=== PATIENT | male | born 1955 | race American Indian/Alaskan Native ===

== ENCOUNTER 2021-01-30 21:12 | Observation (INO) | payer MEDICARE, OTHER ==
[2021-01-30] MEDS ORDERED: ASPIRIN 325 MG TAB PO ONE (21:34)
--- NOTE | 2021-01-30 21:41 | Emergency Department Report ---
ED Chest Pain HPI - General Chief Complaint: Chest Pain Stated Complaint: CHEST PAIN PUI?: No Time Seen by Provider: 01/30/21 21:33 Source: family, EMS Mode of arrival: Stretcher Limitations: No Limitations - History of Present Illness Initial Comments: Patient is a 65-year-old male who presents emergency room with complaints of chest pain. Patient also complains of shortness of breath. Patient states his symptoms started 2 days ago. Patient dates his symptoms worsen. Patient dates his chest pain is nonradiating and in the left side of his chest. Patient states he has had nausea and vomiting as well. Patient denies cough. Patient denies fever and chills. Patient states the chest pain is a 10 out of 10. Patient states the chest pain is worse with exertion and better with rest. Patient denies recent travel. Patient denies recent international travel. Patient denies exposure to the novel coronavirus. Patient denies sick contacts. Patient denies fever and chills. Patient denies cough. Patient denies di arrhea. Patient denies coming in contact with anybody with symptoms of the novel coronavirus. Patient states he drinks regularly and his last drink was this morning. MD Complaint: chest pain -: Sudden Onset: during rest Pain Location: left chest Pain Radiation: none Severity: severe Severity scale (0 -10): 10 Quality: sharp Consistency: constant Improves With: rest Worsens With: exertion re: nausea, vomting, dyspnea. denies: diaphoresis, sense of impending doom Other Symptoms: denies: cough, fever, syncope, rash, acid taste in mouth, leg swelling, palpitations, burping Treatments Prior to Arrival: none Aspirin use within the Past 7 Days: (1) Yes - Related Data On Oral Contraceptives: No Previous Rx's Medication Instructions Recorded Last Taken Type Aspirin EC [Halfprin EC] 81 mg PO QDAY #30 tablet 04/01/19 Unknown Rx Folic Acid [Folvite] 1 mg PO QDAY #30 tablet 04/01/19 Unknown Rx Losartan [Cozaar] 50 mg PO QDAY #30 tablet 04/01/19 Unknown Rx Metoprolol Xl [Metoprolol 50 mg PO QDAY #30 tablet 04/01/19 Unknown Rx SUCCINATE ER TAB] Multivitamin [Multiple Vitamins] 1 each PO DAILY #30 tablet 04/01/19 Unknown Rx NIFEdipine XL [Procardia Xl] 60 mg PO QDAY #30 tablet 04/01/19 Unknown Rx Spironolactone [Aldactone] 25 mg PO QDAY #30 tablet 04/01/19 Unknown Rx Allergies Allergy/AdvReac Type Severity Reaction Status Date / Time lisinopril Allergy Severe EVERYTHING Verified 03/31/19 14:32 SWELLS Heart Score - HEART Score History: Moderately suspicious EKG: Non-specific Age: > 65 Risk factors: 1-2 risk factors Troponin: < normal limit HEART Score: 5 ED Review of Systems ROS: Stated complaint: CHEST PAIN Other details as noted in HPI Constitutional: denies: chills, fever Eyes: denies: eye pain, eye discharge, vision change ENT: denies: ear pain, throat pain Respiratory: see HPI, shortness of breath. denies: cough, wheezing Cardiovascular: chest pain. denies: palpitations Endocrine: no symptoms reported Gastrointestinal: denies: abdominal pain, nausea, diarrhea Genitourinary: denies: urgency, dysuria Musculoskeletal: denies: back pain, joint swelling, arthralgia Skin: denies: rash, lesions Neurological: denies: headache, weakness, paresthesias Psychiatric: denies: anxiety, depression Hematological/Lymphatic: denies: easy bleeding, easy bruising ED Past Medical Hx - Past Medical History Previous Medical History?: Yes Hx Hypertension: Yes Hx Heart Attack/AMI: No Hx Congestive Heart Failure: Yes Hx Liver Disease: Yes Additional medical history: high cholesterol - Surgical History Past Surgical History?: Yes Additional Surgical History: rotator cuff, hip - Family History Family history: no significant - Social History Smoking Status: Never Smoker Substance Use Type: Alcohol - Medications Home Medications: Home Medications Medication Instructions Recorded Confirmed Last Taken Type Aspirin EC [Halfprin EC] 81 mg PO QDAY #30 tablet 04/01/19 Unknown Rx Folic Acid [Folvite] 1 mg PO QDAY #30 tablet 04/01/19 Unknown Rx Losartan [Cozaar] 50 mg PO QDAY #30 tablet 04/01/19 Unknown Rx Metoprolol Xl [Metoprolol 50 mg PO QDAY #30 tablet 04/01/19 Unknown Rx SUCCINATE ER TAB] Multivitamin [Multiple Vitamins] 1 each PO DAILY #30 tablet 04/01/19 Unknown Rx NIFEdipine XL [Procardia Xl] 60 mg PO QDAY #30 tablet 04/01/19 Unknown Rx Spironolactone [Aldactone] 25 mg PO QDAY #30 tablet 04/01/19 Unknown Rx ED Physical Exam - General Limitations: No Limitations General appearance: alert, in no apparent distress - Head Head exam: Present: atraumatic, normocephalic - Eye Eye exam: Present: normal appearance - ENT ENT exam: Present: mucous membranes moist - Neck Neck exam: Present: normal inspection - Respiratory Respiratory exam: Present: normal lung sounds bilaterally. Absent: respiratory distress, chest wall tenderness, accessory muscle use - Cardiovascular Cardiovascular Exam: Present: regular rate, normal rhythm. Absent: systolic m urmur, diastolic murmur, rubs, gallop - GI/Abdominal GI/Abdominal exam: Present: soft, normal bowel sounds. Absent: distended, tenderness, guarding - Rectal Rectal exam: Present: deferred - Extremities Exam Extremities exam: Present: normal inspection - Back Exam Back exam: Present: normal inspection - Neurological Exam Neurological exam: Present: alert, oriented X3 - Psychiatric Psychiatric exam: Present: normal affect, normal mood - Skin Skin exam: Present: warm, dry, intact, normal color. Absent: rash ED Course Vital Signs 01/30/21 01/30/21 21:26 21:28 Temperature 97.5 F L Pulse Rate 37 L 87 Respiratory 20 Rate Blood Pressure 140/70 O2 Sat by Pulse 100 Oximetry - Reevaluation(s) Reevaluation #1: I discussed all results with patient. I discussed plan of care with patient. Patient agrees with plan of care and admission. Patient to be admitted to the hospitalist service. Patient placed on a CIWA protocol. 01/30/21 23:10 - Consultations Consultation #1: Hospitalist consulted for admission. Hospitalist to admit patient. 01/30/21 23:10 RUBI score - Rubi Score Age > 65: (0) No Aspirin use within the Past 7 Days: (0) No 3 or more CAD Risk Factors: (0) No 2 or more Angina events in past 24 hrs: (1) Yes Known CAD with more than 50% Stenosis: (0) No Elevated Cardiac Markers: (0) No ST Deviation Greater than 0.5mm: (0) No RUBI Score: 1 ED Medical Decision Making - Lab Data Result diagrams: 01/30/21 21:41 01/30/21 21:41 - EKG Data -: EKG Interpreted by Me EKG shows normal: sinus rhythm, intervals, QRS complexes, ST-T waves Rate: bradycardia - EKG Data Interpretation: other (Abnormal EKG, PVCs, bigeminy, axis deviation,) - Radiology Data Radiology results: report reviewed, image reviewed interpreted by me: Chest x-ray: No pneumonia, no pneumothorax, no foreign body, no osseous findings, no acute findings CHEST 1 VIEW 01/30/2021 9:06 PM INDICATION / CLINICAL INFORMATION: Chest Pain. COMPARISON: March 2019 FINDINGS: SUPPORT DEVICES: None. HEART / MEDIASTINUM: Stable. LUNGS / PLEURA: Partial collapse of the right upper lung with rightward deviation of the mediastinum and pleural thickening at the right lung apex, findings are similar when compared to 03/30/2019. Bilateral lungs demonstrate chronic interstitial markings without evidence of superimposed acute pulmonary parenchymal or pleural abnormality. No pneumothorax. ADDITIONAL FINDINGS: No significant additional findings. IMPRESSION: 1. No convincing evidence of acute cardiopulmonary process. - Medical Decision Making Patient is a 65-year-old male who presents emergency room with complaints of chest pain shortness of breath. Patient has a history of hypertension, alcohol abuse, CHF, liver disease. Patient had labs done which were essentially unremarkable except for abnormal platelets, abnormal LFTs and bilirubin, hyponatremia. Patient's cardiac enzymes were negative. Patient's chest x-ray shows no acute findings. Patient EKG shows bigeminy and a sinus bradycardia. I have personally reviewed the x-ray and EKG. Patient admitted to the hospital service for further evaluation treatment and rule out ACS. Critical care time documented due to the multiple reassessments, prolonged time at the bedside, interpretation of diagnostics and labs. - Differential Diagnosis ACS, chest pain, shortness of breath, Critical Care Time: Yes Critical care time in (mins) excluding proc time.: 35 Critical care attestation.: If time is entered above; I have spent that time in minutes in the direct care of this critically ill patient, excluding procedure time. Critical Care Time: 35 minutes ED Disposition Clinical Impression: SOB (shortness of breath), Thrombocytopenia, Hyponatremia, Abnormal LFTs (liver function tests), Elevated bilirubin, Elevated liver enzymes Chest pain Qualifiers: Chest pain type: unspecified Qualified Code(s): R07.9 - Chest pain, unspecified Diastolic CHF Qualifiers: Heart failure chronicity: unspecified Qualified Code(s): I50.30 - Unspecified diastolic (congestive) heart failure Nausea & vomiting Qualifiers: Vomiting type: unspecified Vomiting Intractability: non-intractable Qualified Code(s): R11.2 - Nausea with vomiting, unspecified Disposition: OP ADMIT IP TO THIS HOSP Is pt being admited?: Yes Does the pt Need Aspirin: No Condition: Critical Referrals: PRIMARY CARE, [Primary Care Provider] - 3-5 Days Time of Disposition: 23:09
[2021-01-30 22:10] LABS: Basophils % (Auto) 0.6 % (0.0-1.8); Eosinophils % (Auto) 0.9 % (0.0-4.3); Hematocrit 36.8 % (35.5-45.6); Hemoglobin 12.9 gm/dl (11.8-15.2); Lymphocytes # (Auto) 1.7 K/mm3 (1.2-5.4); Mean Corpuscular HGB Conc 35 % (32-34); Mean Corpuscular Volume 114 fl (84-94); Monocytes # (Auto) 0.8 K/mm3 (0.0-0.8); Monocytes % (Auto) 15.7 % (0.0-7.3); Red Blood Count 3.23 M/mm3 (3.65-5.03); Red Cell Distribution Width 16.6 % (13.2-15.2)
[2021-01-30 22:13] LABS: INR 1.67 (0.87-1.13)
[2021-01-30 22:14] LABS: Partial Thromboplastin Time 37.1 Sec. (24.2-36.6)
[2021-01-30 22:21] LABS: Alanine Aminotransferase 33 units/L (7-56); BUN/Creatinine Ratio 18; Blood Urea Nitrogen 16 mg/dL (9-20); Calcium 8.2 mg/dL (8.4-10.2); Hemolysis Index 14
--- NOTE | 2021-01-30 22:26 | XRay Report ---
CHEST 1 VIEW 01/30/2021 9:06 PM INDICATION / CLINICAL INFORMATION: Chest Pain. COMPARISON: March 2019 FINDINGS: SUPPORT DEVICES: None. HEART / MEDIASTINUM: Stable. LUNGS / PLEURA: Partial collapse of the right upper lung with rightward deviation of the mediastinum and pleural thickening at the right lung apex, findings are similar when compared to 03/30/2019. Bilate ral lungs demonstrate chronic interstitial markings without evidence of superimposed acute pulmonary parenchymal or pleural abnormality. No pneumothorax. ADDITIONAL FINDINGS: No significant additional findings. IMPRESSION: 1. No convincing evidence of acute cardiopulmonary process. Signer Name: Sidney Montoya MD Signed: 01/30/2021 10:22 PM Workstation Name: [id number]
[2021-01-30 22:41] LABS: Platelet Count 43 K/mm3 (140-440)
[2021-01-30] MEDS ORDERED: LORazepam 2 MG/ML VIAL IV PRN ×3 (23:05)
[2021-01-31] MEDS ORDERED: ACETAMINOPHEN 325 MG TAB PO PRN ×2 (02:38)
[2021-01-31] MEDS ORDERED: MORPHINE 2 MG/1 ML INJ IV PRN (02:38)
[2021-01-31] MEDS ORDERED: MAGNESIUM HYDROXIDE (MOM) ORAL LIQD UDC PO PRN (02:38)
[2021-01-31] MEDS ORDERED: ONDANSETRON 4 MG/2 ML INJ IV PRN (02:38)
--- NOTE | 2021-01-31 02:59 | History and Physical Report ---
History of Present Illness Date of examination: 01/30/21 Date of admission: 01/30/21 23:12 Chief complaint: chest pain History of present illness: 65-year-old with known history of hypertension, hyperlipidemia, CHF and history of liver disease presenting in the emergency room today complaining of shortness of breath started about 2 days ago. Symptoms were said to have worsened over the past 2 days. Chest pain is left-sided and nonradiating. He has had associa carolyn nausea and vomiting. On a scale of 10 chest pain is said to be about 10/10 in severity. Chest pain is worse on exertion and feels better on resting. He denies any headache or dizziness, denies any diaphoresis. Patient denies any fever or chills, denies any recent travel and no sick contacts. Work-up in the emergency room today has not revealed any acute abnormality. Patient has been admitted for chest pain evaluation. Past History Past Medical History: heart failure, hypertension, hyperlipidemia, liver disease Past Surgical History: Other (Hip surgery, rotator cuff surgery) Social history: smoking, alcohol abuse Family history: no significant family history Medications and Allergies Allergies Allergy/AdvReac Type Severity Reaction Status Date / Time lisinopril Allergy Severe EVERYTHING Verified 03/31/19 14:32 [facility] Medications Medication Instructions Recorded Confirmed Last Taken Type Aspirin EC [Halfprin EC] 81 mg PO QDAY #30 tablet 04/01/19 Unknown Rx Folic Acid [Folvite] 1 mg PO QDAY #30 tablet 04/01/19 Unknown Rx Losartan [Cozaar] 50 mg PO QDAY #30 tablet 04/01/19 Unknown Rx Metoprolol Xl [Metoprolol 50 mg PO QDAY #30 tablet 04/01/19 Unknown Rx SUCCINATE ER TAB] Multivitamin [Multiple Vitamins] 1 each PO DAILY #30 tablet 04/01/19 Unknown Rx NIFEdipine XL [Procardia Xl] 60 mg PO QDAY #30 tablet 04/01/19 Unknown Rx Spironolactone [Aldactone] 25 mg PO QDAY #30 tablet 04/01/19 Unknown Rx Active Meds: Active Medications Acetaminophen (Acetaminophen 325 Mg Tab) 650 mg PO Q4H PRN PRN Reason: Pain MILD(1-3)/Fever >100.5/COLLINS Aspirin (Aspirin Ec 325 Mg Tab) 325 mg PO QDAY LILIBETH Lorazepam (Lorazepam 2 Mg/Ml Vial) 2 mg IV Q1HR PRN PRN Reason: CIWA-Ar 8-15 Lorazepam (Lorazepam 2 Mg/Ml Vial) 4 mg IV Q1HR PRN PRN Reason: CIWA-Ar 16-25 Lorazepam (Lorazepam 2 Mg/Ml Vial) 4 mg IV Q15MIN PRN PRN Reason: CIWA-Ar >25 Magnesium Hydroxide (Magnesium Hydroxide (Mom) Oral Liqd Udc) 30 ml PO Q4H PRN PRN Reason: Constipation Morphine Sulfate (Morphine 2 Mg/1 Ml Inj) 2 mg IV Q5MIN PRN PRN Reason: Chest Pain Ondansetron HCl (Ondansetron 4 Mg/2 Ml Inj) 4 mg IV Q8H PRN PRN Reason: Nausea And Vomiting Sodium Chloride (Sodium Chloride 0.9% 10 Ml Flush Syringe) 10 ml IV BID LILIBETH Sodium Chloride (Sodium Chloride 0.9% 10 Ml Flush Syringe) 10 ml IV PRN PRN PRN Reason: LINE FLUSH Review of Systems Constitutional: no fever, no chills, no weakness Ears, nose, mouth and throat: no nasal congestion, no sore throat Cardiovascular: chest pain, no palpitations Respiratory: no cough, no shortness of breath, no wheezing Gastrointestinal: no abdominal pain, no nausea, no vomiting, no diarrhea Genitourinary Male: no dysuria, no hematuria, no nocturia Musculoskeletal: no neck pain, no low back pain Integumentary: no rash, no pruritis Neurological: no headaches, no confusion Psychiatric: no anxiety, no depression Exam - Constitutional Vitals: Temp Pulse Resp BP Pulse Ox 98.0 F 87 16 141/74 100 01/30/21 23:56 01/31/21 02:43 01/30/21 23:56 01/30/21 23:56 01/30/21 23:56 General appearance: Present: no acute distress, well-nourished - EENT Eyes: Present: PERRL, EOM intact. Absent: scleral icterus ENT: hearing intact, clear oral mucosa, dentition normal - Neck Neck: Present: supple, normal ROM - Respiratory Respiratory effort: normal Respiratory: bilateral: CTA - Cardiovascular Rhythm: regular Heart Sounds: Present: S1 & S2. Absent: gallop, systolic murmur, diastolic murmur, rub, click - Extremities Extremities: no ischemia, pulses intact, pulses symmetrical, No edema, normal temperature, normal color, Full ROM Peripheral Pulses: within normal limits - Abdominal General gastrointestinal: Present: soft, non-tender, non-distended, normal bowel sounds. Absent: mass - Integumentary Integumentary: Present: clear, warm, dry. Absent: rash - Musculoskeletal Musculoskeletal: strength equal bilaterally - Psychiatric Psychiatric: appropriate mood/affect, intact judgment & insight, memory intact, cooperative - Neurologic Neurologic: CNII-XII intact, no focal deficits, moves all extremities HEART Score - HEART Score History: Moderately suspicious EKG: Non-specific Age: > 65 Risk factors: 1-2 risk factors Troponin: Troponin T < 0.010 ng/mL (0.00-0.029) 01/31/21 00:24 Troponin: < normal limit HEART Score: 5 Results - Labs CBC & Chem 7: 01/30/21 21:41 01/30/21 21:41 Labs: Abnormal lab results 01/30/21 01/30/21 01/30/21 Range/Units 21:41 21:41 21:41 RBC 3.23 L (3.65-5.03) M/mm3 MCV 114 H (84-94) fl MCH 40 H (28-32) pg MCHC 35 H (32-34) % RDW 16.6 H (13.2-15.2) % Plt Count 43 L (140-440) K/mm3 Lymph % (Auto) 36.0 H (13.4-35.0) % [place] % (Auto) 15.7 H (0.0-7.3) % PT 19.6 H (12.2-14.9) Sec. INR 1.67 H (0.87-1.13) APTT 37.1 H (24.2-36.6) Sec. Sodium 128 L (137-145) mmol/L Chloride 96.1 L (98-107) mmol/L Calcium 8.2 L (8.4-10.2) mg/dL Total Bilirubin 2.80 H (0.1-1.2) mg/dL AST 82 H (5-40) units/L Alkaline Phosphatase 264 H (35-129) units/L Albumin 2.0 L (3.9-5) g/dL Assessment and Plan - Patient Problems (1) Chest pain Current Visit: Yes Status: Acute Qualifiers: Chest pain type: unspecified Qualified Code(s): R07.9 - Chest pain, unspecified Plan to address problem: Patient admitted and placed on telemetry. Will check serial cardiac enzymes. Patient started on aspirin, sublingual nitroglycerin and IV morphine as needed for chest pain. We will request cardiology evaluation. (2) Hypertension Current Visit: No Status: Acute Qualifiers: Hypertension type: unspecified Qualified Code(s): I10 - Essential (primary) hypertension Plan to address problem: We will resume routine home medications and monitor vital signs closely. (3) Elevated liver enzymes Current Visit: Yes Status: Acute Plan to address problem: Possibly secondary to history of alcohol abuse. Will monitor LFTs. We will consult gastroenterology for follow-up if needed. (4) EtOH dependence Current Visit: No Status: Acute Qualifiers: Complication of substance-induced condition: with unspecified complication Plan to address problem: Patient will be closely monitored for alcohol withdrawal. Patient placed on CIWA protocol. (5) Thrombocytopenia Current Visit: Yes Status: Acute Plan to address problem: Possibly chronic. Will monitor platelet counts. We will transfuse platelets as needed. (6) DVT prophylaxis Current Visit: No Status: Acute Plan to address problem: Patient placed on sequential compression device. (7) Full code status Current Visit: Yes Status: Acute Plan to address problem: Patient is full code.
[2021-01-31 04:51] LABS: Chol/HDL Ratio 4.51 %
[2021-01-31] MEDS ORDERED: REGADENOSON 0.4 MG/5 ML INJ IV ONE ×2 (10:04→10:05)
--- NOTE | 2021-01-31 11:33 | Treadmill Report ---
REFERRING PHYSICIAN: Hospitalist service. PROTOCOL: The patient was assessed in postoperative state, given 10 mCi of technetium 99m at rest. The patient underwent rest imaging. The patient underwent Lexiscan stress test per standard protocol. At peak stress, the patient was given 26 mCi desktop support technician 99m. At peak stress, the patient was given 26 mCi of technetium 99m. Shortly thereafter, the patient underwent stress imaging. Raw imaging reveals mild GI artifact, no significant motion artifact. SPECT imaging examined carefully in horizontal long axis, vertical long axis, short axis views. It should be noted the patient has frequent PVCs and bigeminy and gating is not completed due to this. CONCLUSIONS: 1. Normal myocardial perfusion scan without evidence of active ischemia or prior infarction. 2. No LV gating is performed. JOB# [id number] JA/JANINE
[2021-01-31] MEDS ORDERED: FLU VACC QUAD 2020-2021 (6 months +)/PF 60 0.5 ML SYRINGE IM ONE (12:00)
--- NOTE | 2021-01-31 12:51 | Consultation ---
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 He is previously unknown to our practice. He has been previously seen by [facility] on prior admission, but denies any regular out patient cardiology follow up. Patient presents with chief complaint of chest pain and dizziness for several weeks prior to arrival. Pt states that he had a "virus" approximately 3 weeks ago and has not been feeling well since that time. Pt reports 2 negative Covid tests within last 6 months. Pt describes CP as a midsternal, aching pain which is worse with inspiration and coughing. Patient also reports dizziness which is only present with positional changes. He is seen for consultaion in the stress lab, stress testing ordered overnight per primary team. AMI rule out. CXR is negative for acute process. Lexiscan MPI (03/2019) negative. Echo (03/2019) reviewed: EF 35-40%. Left Ventricle is mildly dilated with mild LVH. LA mildly dilated. Mild to moderate MR. Mild TR. Past History Past Medical History: heart failure, hypertension, hyperlipidemia, liver disease Past Surgical History: Other (Hip surgery, rotator cuff surgery) Social history: smoking, alcohol abuse Family history: no significant family history Medications and Allergies Allergies Allergy/AdvReac Type Severity Reaction Status Date / Time lisinopril Allergy Severe EVERYTHING Verified 03/31/19 14:32 [facility] Medications Medication Instructions Recorded Confirmed Last Taken Type Aspirin EC [Halfprin EC] 81 mg PO QDAY #30 tablet 04/01/19 Unknown Rx Folic Acid [Folvite] 1 mg PO QDAY #30 tablet 04/01/19 Unknown Rx Losartan [Cozaar] 50 mg PO QDAY #30 tablet 04/01/19 Unknown Rx Metoprolol Xl [Metoprolol 50 mg PO QDAY #30 tablet 04/01/19 Unknown Rx SUCCINATE ER TAB] Multivitamin [Multiple Vitamins] 1 each PO DAILY #30 tablet 04/01/19 Unknown Rx NIFEdipine XL [Procardia Xl] 60 mg PO QDAY #30 tablet 04/01/19 Unknown Rx Spironolactone [Aldactone] 25 mg PO QDAY #30 tablet 04/01/19 Unknown Rx Active Meds: Active Medications Acetaminophen (Acetaminophen 325 Mg Tab) 650 mg PO Q4H PRN PRN Reason: Pain MILD(1-3)/Fever >100.5/COLLINS Last Admin: 01/31/21 05:21 Dose: 650 mg Documented by: Aspirin (Aspirin Ec 325 Mg Tab) 325 mg PO QDAY [facility] Lorazepam (Lorazepam 2 Mg/Ml Vial) 2 mg IV Q1HR PRN PRN Reason: CIWA-Ar 8-15 Lorazepam (Lorazepam 2 Mg/Ml Vial) 4 mg IV Q1HR PRN PRN Reason: CIWA-Ar 16-25 Lorazepam (Lorazepam 2 Mg/Ml Vial) 4 mg IV Q15MIN PRN PRN Reason: CIWA-Ar >25 Magnesium Hydroxide (Magnesium Hydroxide (Mom) Oral Liqd Udc) 30 ml PO Q4H PRN PRN Reason: Constipation Morphine Sulfate (Morphine 2 Mg/1 Ml Inj) 2 mg IV Q5MIN PRN PRN Reason: Chest Pain Ondansetron HCl (Ondansetron 4 Mg/2 Ml Inj) 4 mg IV Q8H PRN PRN Reason: Nausea And Vomiting Sodium Chloride (Sodium Chloride 0.9% 10 Ml Flush Syringe) 10 ml IV BID [facility] Last Admin: 01/31/21 12:08 Dose: 10 ml Documented by: Sodium Chloride (Sodium Chloride 0.9% 10 Ml Flush Syringe) 10 ml IV PRN PRN PRN Reason: LINE FLUSH Review of Systems Constitutional: no weight loss, no weight gain, no fever, no chills, no sweats Ears, nose, mouth and throat: no ear pain, no ear discharge, no decreased hearing, no nose pain, no nasal congestion, no nasal discharge, no sinus pressure Cardiovascular: chest pain, lightheadedness, shortness of breath, no orthopnea, no edema, no syncope Respiratory: shortness of breath, no cough, no dyspnea on exertion Gastrointestinal: no abdominal pain, no nausea, no vomiting, no diarrhea, no constipation Genitourinary Male: no flank pain Musculoskeletal: no neck stiffness, no neck pain, no shooting arm pain, no arm numbness/tingling, no low back pain, no shooting leg pain Integumentary: no rash, no pruritis, no redness, no sores, no wounds Neurological: no head injury, no paralysis, no weakness, no parathesias, no numbness, no tingling, no seizures, no syncope Psychiatric: no anxiety Endocrine: no cold intolerance, no heat intolerance Hematologic/Lymphatic: no easy bruising, no easy bleeding Allergic/Immunologic: no urticaria Physical Examination Vital Signs Temp Pulse Resp BP Pulse Ox 97.5 F L 37 L 20 140/70 100 01/30/21 21:26 01/30/21 21:26 01/30/21 21:26 01/30/21 21:26 01/30/21 21:26 General appearance: no acute distress HEENT: Positive: PERRL Neck: Positive: neck supple Cardiac: Positive: Reg Rate and Rhythm Lungs: Positive: Normal Breath Sounds Neuro: Positive: Grossly Intact Abdomen: Positive: Unremarkable Skin: Negative: Rash, Wound Extremities: Present: upper extr. pulses, lower extr. pulses. Absent: edema Results 01/30/21 21:41 01/30/21 21:41 Cardiac Enzymes 01/30/21 Range/Units 21:41 AST 82 H (5-40) units/L Coagulation 01/30/21 Range/Units 21:41 PT 19.6 H (12.2-14.9) Sec. INR 1.67 H (0.87-1.13) APTT 37.1 H (24.2-36.6) Sec. Lipids 01/31/21 Range/Units 03:40 Triglycerides 75 (2-149) mg/dL Cholesterol 131 (50-199) mg/dL HDL Cholesterol 29 L (40-59) mg/dL Cholesterol/HDL Ratio 4.51 % CBC 01/30/21 Range/Units 21:41 WBC 4.8 (4.5-11.0) K/mm3 RBC 3.23 L (3.65-5.03) M/mm3 Hgb 12.9 (11.8-15.2) gm/dl Hct 36.8 (35.5-45.6) % Plt Count 43 L (140-440) K/mm3 Lymph # (Auto) 1.7 (1.2-5.4) K/mm3 [place] # (Auto) 0.8 (0.0-0.8) K/mm3 Eos # (Auto) 0.0 (0.0-0.4) K/mm3 Baso # (Auto) 0.0 (0.0-0.1) K/mm3 Comprehensive Metabolic Panel 01/30/21 Range/Units 21:41 Sodium 128 L (137-145) mmol/L Potassium 3.6 (3.6-5.0) mmol/L Chloride 96.1 L (98-107) mmol/L Carbon Dioxide 23 (22-30) mmol/L BUN 16 (9-20) mg/dL Creatinine 0.9 (0.8-1.3) mg/dL Glucose 85 (75-100) mg/dL Calcium 8.2 L (8.4-10.2) mg/dL AST 82 H (5-40) units/L ALT 33 (7-56) units/L Alkaline Phosphatase 264 H (35-129) units/L Total Protein 7.9 (6.3-8.2) g/dL Albumin 2.0 L (3.9-5) g/dL - Imaging and Cardiology Echo: pending, report reviewed (Echo (03/2019) reviewed: EF 35-40%. Left Ventricle is mildly dilated with mild LVH. LA mildly dilated. Mild to moderate MR. Mild TR. ) EKG: report reviewed, image reviewed EKG interpretations - Telemetry EKG Rhythm: Sinus Rhythm - EKG Ventricular dysrhythmias: ventricular premature com Assessment and Plan Cardiology is consulted for chest pain, suspect pleuritic. AMI ruled out. Lexiscan MPI Stress test today (01/31/21) is negative. Preliminary Echo imaging shows EF 50-55%/ Trace MR, TR. Obtain D dimer. Obtain Serum Mag in setting of frequent PVCs. Resume home Toprol. Pending Ddimer and serum Mag are within normal limits, pt may discharge from cardiology standpoint. Of note; pt admits to ongoing ETOH use. Cessation encouraged. Recommend f/u in our office with Dr Berlin Phoenix within 1-2 weeks of discharge. This patient seen in conjunction with Dr Berlin Phoenix who agrees with this assessment and plan. - Patient Problems (1) Chest pain Current Visit: Yes Status: Acute Qualifiers: Chest pain type: unspecified Qualified Code(s): R07.9 - Chest pain, unsp ecified (2) Frequent PVCs Current Visit: Yes Status: Acute (3) NICM (nonischemic cardiomyopathy) Current Visit: Yes Status: Chronic Plan to address problem: Presumably alcoholic (4) EtOH dependence Current Visit: Yes Status: Chronic Qualifiers: Complication of substance-induced condition: with unspecified complication (5) Thrombocytopenia Current Visit: Yes Status: Chronic (6) Hypertension Current Visit: Yes Status: Chronic Qualifiers: Hypertension type: unspecified Qualified Code(s): I10 - Essential (primary) hypertension
--- NOTE | 2021-01-31 15:18 | Event Note ---
Date: 01/31/21 Patient seen and examined This is the second visit after midnight 65-year-old with known history of hypertension, hyperlipidemia, CHF and history of liver disease presenting in the emergency room today complaining of chest pain and shortness of breath started about 2 days ago. Cardiac enzymes has been negative, had MPI stress test today which was unremarkable Patient placed on [facility] protocol for history of alcohol abuse D-dimer is significantly elevated, ordered for CTA chest Continue to monitor the patient clinically, provide supportive care If clinically stable and CTA chest is negative possible discharge tomorrow morning
[2021-01-31 16:25] VITALS: BP 140/92
--- NOTE | 2021-01-31 16:38 | Discharge Summary ---
Providers - Providers Date of Admission: 01/30/21 23:12 Date of discharge: 01/31/21 Attending physician: DONAVON AMATO 01/31/21 Consult to Cardiac Rehabilitation [CONS] Routine Reason For Exam: Phase I 01/31/21 02:38 Consult to Cardiology [CONS] Routine Consulting Provider: ANTHONY PERSAUD Reason For Exam: chest pain Primary care physician: PINO ANDERSON MD Hospitalization Condition: Critical Disposition: DC-01 TO HOME OR SELFCARE Time spent for discharge: 34 minutes Core Measure Documentation - Palliative Care Palliative Care/ Comfort Measures: Not Applicable - Core Measures Any of the following diagnoses?: none Exam - Constitutional Vitals: Temp Pulse Resp BP Pulse Ox 98.6 F 69 20 140/92 98 01/31/21 16:23 01/31/21 16:23 01/31/21 16:23 01/31/21 16:23 01/31/21 16:23 Plan Activity: advance as tolerated Weight Bearing Status: Weight Bear as Tolerated Diet: low fat, low salt Follow up with: PRIMARY CAREMD [Primary Care Provider] - 3-5 Days
[2021-01-31] MEDS ORDERED: LOSARTAN 50 MG TAB PO SCH (17:00)
--- NOTE | 2021-01-31 17:57 | Cat Scan Report ---
CTA CHEST WITH IV CONTRAST INDICATION: Shortness of breath. TECHNIQUE: Axial CT images were obtained through the chest after injection of 100 cc Omni 350 IV contrast. 3 summer ne MIP reconstructions were produced. All CT scans at this location are performed using CT dose reduc tion for ALARA by means of automated exposure control. COMPARISON: None available. FINDINGS: PULMONARY ARTERIES: No pulmonary emboli. THORACIC AORTA: No acute abnormality. HEART: Moderate cardiomegaly. CORONARY ARTERIES: No significant calcification. PLEURA: Calcified right pleural plaque and pleural thickening No pneumothorax. LYMPH NODES: No significant adenopathy. LUNGS: Moderate traction bronchiectasis and volume loss right upper lobe. ADDITIONAL FINDINGS: None. UPPER ABDOMEN: Cirrhosis with moderate-sized recannulated periumbilical vein and small amount of uppe r abdominal ascites SKELETAL STRUCTURES: No significant osseous abnormality. IMPRESSION: 1. No CT evidence for pulmonary embolism. 2. 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 Cardiomegaly without CHF 5. Cirrhosis with moderate-sized recannulated periumbilical vein and trace upper abdominal ascites Signer Name: Murtaza Floyd MD Signed: 01/31/2021 5:53 PM Workstation Name: [id number]
[2021-02-01] MEDS ORDERED: FOLIC ACID 1 MG TAB PO SCH (10:00)
[2021-02-01] MEDS ORDERED: NON-FORMULARY EACH (Multivitamin [Multiple Vitamins] 1 EACH Tablet) PO SCH (10:00)
[2021-02-01] MEDS ORDERED: METOPROLOL SUCCINATE XL 50 MG TAB PO SCH (10:00)
[2021-02-01] MEDS ORDERED: NIFEdipine XL 60 MG TAB PO SCH (10:00)
[2021-02-01] MEDS ORDERED: MULTIVITAMINS ,THERAPEUTIC TAB PO SCH (10:00)
[2021-02-01] MEDS ORDERED: SPIRONOLACTONE 25 MG TAB PO SCH (10:00)
[2021-02-01] MEDS ORDERED: ASPIRIN EC 325 MG TAB PO SCH (10:00)
== END 2021-01-31 19:45 | disposition home or self-care (01) ==
LOC: ED 21:12 → 4A 23:12
PROVIDERS: ADMIT Internal Medicine Geriatric Medicine; ATTEND Internal Medicine
DX: R07.89 Other chest pain (principal); I11.0 Hypertensive heart disease with heart failure; I50.30 Unspecified diastolic (congestive) heart failure; I49.3 Ventricular premature depolarization; I42.8 Other cardiomyopathies; R79.89 Other specified abnormal findings of blood chemistry; F10.129 Alcohol abuse with intoxication, unspecified; D69.6 Thrombocytopenia, unspecified; E78.5 Hyperlipidemia, unspecified; K76.9 Liver disease, unspecified; R11.2 Nausea with vomiting, unspecified; Z98.890 Other specified postprocedural states; Z79.82 Long term (current) use of aspirin
CPT/HCPCS: 36415; 71045; 71275; 78452; 80053; 80061; 83735; 83880; 84484; 85025; 85379; 85610; 85730; 93005; 93017; 93306; 99291; A9502; G0378; J2785; Q9967; 80320; 90686; G0480

== ENCOUNTER 2021-05-21 13:33 | Inpatient (IN) | payer MEDICARE ==
[2021-05-21 15:00] LABS: Basophils % (Auto) 0.6 % (0.0-1.8); Eosinophils # (Auto) 0.1 K/mm3 (0.0-0.4); Eosinophils % (Auto) 1.6 % (0.0-4.3); Hematocrit 26.4 % (35.5-45.6); Hemoglobin 9.1 gm/dl (11.8-15.2); Lymphocytes # (Auto) 1.3 K/mm3 (1.2-5.4); Lymphocytes % (Auto) 22.9 % (13.4-35.0); Mean Corpuscular HGB Conc 35 % (32-34); Monocytes # (Auto) 0.8 K/mm3 (0.0-0.8); Monocytes % (Auto) 14.5 % (0.0-7.3); Red Blood Count 2.23 M/mm3 (3.65-5.03); Red Cell Distribution Width 17.2 % (13.2-15.2)
[2021-05-21 15:03] LABS: Mean Corpuscular Volume 118 fl (84-94)
[2021-05-21 15:04] LABS: Platelet Count 53 K/mm3 (140-440)
[2021-05-21 15:06] LABS: INR 1.81 (0.87-1.13)
[2021-05-21 15:07] LABS: Partial Thromboplastin Time 43.3 Sec. (24.2-36.6)
[2021-05-21 15:22] LABS: Alanine Aminotransferase 33 units/L (7-56); Albumin 1.9 g/dL (3.9-5); BUN/Creatinine Ratio 24; Blood Urea Nitrogen 19 mg/dL (9-20); Calcium 8.6 mg/dL (8.4-10.2); Hemolysis Index 5
[2021-05-21 17:03] LABS: Bilirubin,Direct 1.8 mg/dL (0-0.2)
--- NOTE | 2021-05-21 17:18 | Emergency Department Report ---
HPI - General Chief Complaint: Altered Mental Status Time Seen by Provider: 05/21/21 16:54 - HPI HPI: This is a 65-year-old -[place] male presents to the emergency department, brought in by his , with complaint of some confusion, swollen abdomen, swollen extremities, random bruising, yellowish eyes, and some "knots" felt under the skin. Patient's says that this has been getting progressively worse over the past week. The patient also has been feeling off balance while walking, but has not had any recent falls. The patient was rec ently diagnosed with liver failure by his PCP, Dr. Mclaughlin. The patient was set up to see a knitting machine operator helper or baker head but they say that the appointment is not for at least a few weeks. He has a past medical history of CHF, hypertension, high cholesterol. The patient drinks alcohol regularly and did so up to about 2 days ago. No history of any significant alcohol withdrawal issues. The patient also admits to some intermittent cocaine use. At the time of my examination the patient is AAO x2, to person and place but not time. ED Past Medical Hx - Past Medical History Previous Medical History?: Yes Hx Hypertension: Yes Hx Heart Attack/AMI: No Hx Congestive Heart Failure: Yes Hx Liver Disease: Yes Additional medical history: high cholesterol - Surgical History Past Surgical History?: Yes Additional Surgical History: rotator cuff, hip - Social History Smoking Status: Never Smoker Substance Use Type: Alcohol - Medications Home Medications: Home Medications Medication Instructions Recorded Confirmed Last Taken Type Aspirin EC [Halfprin EC] 81 mg PO QDAY #30 tablet 04/01/19 Unknown Rx Folic Acid [Folvite] 1 mg PO QDAY #30 tablet 04/01/19 Unknown Rx Losartan [Cozaar] 50 mg PO QDAY #30 tablet 04/01/19 Unknown Rx Metoprolol Xl [Metoprolol 50 mg PO QDAY #30 tablet 04/01/19 Unknown Rx SUCCINATE ER TAB] Multivitamin [Multiple Vitamins] 1 each PO DAILY #30 tablet 04/01/19 Unknown Rx NIFEdipine XL [Procardia Xl] 60 mg PO QDAY #30 tablet 04/01/19 Unknown Rx Spironolactone [Aldactone] 25 mg PO QDAY #30 tablet 04/01/19 Unknown Rx Pantoprazole [Protonix] 40 mg PO QDAY #30 tablet 01/31/21 Unknown Rx ED Review of Systems ROS: Stated complaint: CONFUSED YELLOW EYES Other details as noted in HPI Comment: All other systems reviewed and negative Constitutional: denies: chills, fever Eyes: denies: eye pain, vision change ENT: denies: ear pain, throat pain Respiratory: denies: cough, shortness of breath Cardiovascular: denies: chest pain, palpitations Gastrointestinal: abdominal pain. denies: vomiting Genitourinary: denies: dysuria, discharge Musculoskeletal: joint swelling. denies: back pain Skin: change in color. denies: rash Neurological: confusion. denies: headache Hematological/Lymphatic: easy bruising Physical Exam - Physical Exam Vital Signs: Vital Signs 05/21/21 13:49 Temperature 97.9 F Pulse Rate 97 H Respiratory 18 Rate Blood Pressure 175/101 [Right] O2 Sat by Pulse 99 Oximetry Physical Exam: GENERAL: The patient is well-developed well-nourished. HENT: Normocephalic. Atraumatic. Patient has moist mucous membranes. EYES: Extraocular motions are intact. Pupils equal reactive to light bilaterally. Patient has scleral icterus. NECK: Supple. Trachea is midline. CHEST/LUNGS: Clear to auscultation. There is no respiratory distress noted. HEART/CARDIOVASCULAR: Regular. There is no tachycardia. There is no murmur. ABDOMEN: Abdomen is soft, nontender. Patient has normal bowel sounds. There is mild abdominal distention. SKIN: Skin is warm and dry. Multiple areas of ecchymosis to the bilateral upper extremities. There is some nonpitting swelling of the left hand and bilateral lower extremities. NEURO: The patient is awake, alert, and cooperative. Patient does display some confusion, AAO x2 to person and place but not time. Cranial nerves II through XII grossly intact. No pronator drift or dysmetria. No facial asymmetry. Normal speech. MUSCULOSKELETAL: There is no tenderness or deformity. There is no limitation range of motion. ED Course Vital Signs 05/21/21 13:49 Temperature 97.9 F Pulse Rate 97 H Respiratory 18 Rate Blood Pressure 175/101 [Right] O2 Sat by Pulse 99 Oximetry ED Medical Decision Making - Lab Data Result diagrams: 05/21/21 14:26 05/21/21 14:26 Lab Results 05/21/21 05/21/21 05/21/21 Range/Units 14:26 14:26 14:26 WBC 5.5 (4.5-11.0) K/mm3 RBC 2.23 L (3.65-5.03) M/mm3 Hgb 9.1 L (11.8-15.2) gm/dl Hct 26.4 L (35.5-45.6) % MCV 118 H (84-94) fl MCH 41 H (28-32) pg MCHC 35 H (32-34) % RDW 17.2 H (13.2-15.2) % Plt Count 53 L (140-440) K/mm3 Lymph % (Auto) 22.9 (13.4-35.0) % [place] % (Auto) 14.5 H (0.0-7.3) % Eos % (Auto) 1.6 (0.0-4.3) % Baso % (Auto) 0.6 (0.0-1.8) % Lymph # (Auto) 1.3 (1.2-5.4) K/mm3 [place] # (Auto) 0.8 (0.0-0.8) K/mm3 Eos # (Auto) 0.1 (0.0-0.4) K/mm3 Baso # (Auto) 0.0 (0.0-0.1) K/mm3 Seg Neutrophils % 60.4 (40.0-70.0) % Seg Neutrophils # 3.3 (1.8-7.7) K/mm3 PT 21.6 H (12.2-14.9) Sec. INR 1.81 H (0.87-1.13) APTT 43.3 H (24.2-36.6) Sec. Sodium 138 (137-145) mmol/L Potassium 3.4 L (3.6-5.0) mmol/L Chloride 103.3 (98-107) mmol/L Carbon Dioxide 26 (22-30) mmol/L Anion Gap 12 mmol/L BUN 19 (9-20) mg/dL Creatinine 0.8 (0.8-1.3) mg/dL Estimated GFR > 60 ml/min BUN/Creatinine Ratio 24 % Glucose 106 H (75-100) mg/dL Calcium 8.6 (8.4-10.2) mg/dL Total Bilirubin 3.50 H (0.1-1.2) mg/dL Direct Bilirubin (0-0.2) mg/dL Indirect Bilirubin mg/dL AST 112 H (5-40) units/L ALT 33 (7-56) units/L Alkaline Phosphatase 194 H (35-129) units/L Ammonia (25-60) umol/L Total Protein 8.3 H (6.3-8.2) g/dL Albumin 1.9 L (3.9-5) g/dL Albumin/Globulin Ratio 0.3 % Lipase 52 (13-60) units/L Urine Color (Yellow) Urine Turbidity (Clear) Urine pH (5.0-7.0) Ur Specific [place] (1.003-1.030) Urine Protein (Negative) mg/dL Urine Glucose (UA) (Negative) mg/dL Urine Ketones (Negative) mg/dL Urine Blood (Negative) Urine Nitrite (Negative) Urine Bilirubin (Negative) Urine Urobilinogen (<2.0) mg/dL Ur Leukocyte Esterase (Negative) Urine WBC (Auto) (0.0-6.0) /HPF Urine RBC (Auto) (0.0-6.0) /HPF Urine Bacteria (Auto) (Negative) /HPF Urine Opiates Screen Urine Methadone Screen Ur Barbiturates Screen Ur Phencyclidine Scrn Ur Amphetamines Screen U Benzodiazepines Scrn Urine Cocaine Screen U Marijuana (THC) Screen Drugs of Abuse Note Plasma/Serum Alcohol (0-0.07) % 05/21/21 05/21/21 05/21/21 Range/Units 14:26 14:26 17:24 WBC (4.5-11.0) K/mm3 RBC (3.65-5.03) M/mm3 Hgb (11.8-15.2) gm/dl Hct (35.5-45.6) % MCV (84-94) fl MCH (28-32) pg MCHC (32-34) % RDW (13.2-15.2) % Plt Count (140-440) K/mm3 Lymph % (Auto) (13.4-35.0) % [place] % (Auto) (0.0-7.3) % Eos % (Auto) (0.0-4.3) % Baso % (Auto) (0.0-1.8) % Lymph # (Auto) (1.2-5.4) K/mm3 [place] # (Auto) (0.0-0.8) K/mm3 Eos # (Auto) (0.0-0.4) K/mm3 Baso # (Auto) (0.0-0.1) K/mm3 Seg Neutrophils % (40.0-70.0) % Seg Neutrophils # (1.8-7.7) K/mm3 PT (12.2-14.9) Sec. INR (0.87-1.13) APTT (24.2-36.6) Sec. Sodium (137-145) mmol/L Potassium (3.6-5.0) mmol/L Chloride (98-107) mmol/L Carbon Dioxide (22-30) mmol/L Anion Gap mmol/L BUN (9-20) mg/dL Creatinine (0.8-1.3) mg/dL Estimated GFR ml/min BUN/Creatinine Ratio % Glucose (75-100) mg/dL Calcium (8.4-10.2) mg/dL Total Bilirubin 3.50 H (0.1-1.2) mg/dL Direct Bilirubin 1.8 H (0-0.2) mg/dL Indirect Bilirubin 1.7 mg/dL AST (5-40) units/L ALT (7-56) units/L Alkaline Phosphatase (35-129) units/L Ammonia 47.0 (25-60) umol/L Total Protein (6.3-8.2) g/dL Albumin (3.9-5) g/dL Albumin/Globulin Ratio % Lipase (13-60) units/L Urine Color (Yellow) Urine Turbidity (Clear) Urine pH (5.0-7.0) Ur Specific [place] (1.003-1.030) Urine Protein (Negative) mg/dL Urine Glucose (UA) (Negative) mg/dL Urine Ketones (Negative) mg/dL Urine Blood (Negative) Urine Nitrite (Negative) Urine Bilirubin (Negative) Urine Urobilinogen (<2.0) mg/dL Ur Leukocyte Esterase (Negative) Urine WBC (Auto) (0.0-6.0) /HPF Urine RBC (Auto) (0.0-6.0) /HPF Urine Bacteria (Auto) (Negative) /HPF Urine Opiates Screen Urine Methadone Screen Ur Barbiturates Screen Ur Phencyclidine Scrn Ur Amphetamines Screen U Benzodiazepines Scrn Urine Cocaine Screen U Marijuana (THC) Screen Drugs of Abuse Note Plasma/Serum Alcohol < 0.01 (0-0.07) % 05/21/21 05/21/21 Range/Units 17:45 17:45 WBC (4.5-11.0) K/mm3 RBC (3.65-5.03) M/mm3 Hgb (11.8-15.2) gm/dl Hct (35.5-45.6) % MCV (84-94) fl MCH (28-32) pg MCHC (32-34) % RDW (13.2-15.2) % Plt Count (140-440) K/mm3 Lymph % (Auto) (13.4-35.0) % [place] % (Auto) (0.0-7.3) % Eos % (Auto) (0.0-4.3) % Baso % (Auto) (0.0-1.8) % Lymph # (Auto) (1.2-5.4) K/mm3 [place] # (Auto) (0.0-0.8) K/mm3 Eos # (Auto) (0.0-0.4) K/mm3 Baso # (Auto) (0.0-0.1) K/mm3 Seg Neutrophils % (40.0-70.0) % Seg Neutrophils # (1.8-7.7) K/mm3 PT (12.2-14.9) Sec. INR (0.87-1.13) APTT (24.2-36.6) Sec. Sodium (137-145) mmol/L Potassium (3.6-5.0) mmol/L Chloride (98-107) mmol/L Carbon Dioxide (22-30) mmol/L Anion Gap mmol/L BUN (9-20) mg/dL Creatinine (0.8-1.3) mg/dL Estimated GFR ml/min BUN/Creatinine Ratio % Glucose (75-100) mg/dL Calcium (8.4-10.2) mg/dL Total Bilirubin (0.1-1.2) mg/dL Direct Bilirubin (0-0.2) mg/dL Indirect Bilirubin mg/dL AST (5-40) units/L ALT (7-56) units/L Alkaline Phosphatase (35-129) units/L Ammonia (25-60) umol/L Total Protein (6.3-8.2) g/dL Albumin (3.9-5) g/dL Albumin/Globulin Ratio % Lipase (13-60) units/L Urine Color [place] (Yellow) Urine Turbidity Clear (Clear) Urine pH 5.0 (5.0-7.0) Ur Specific [place] 1.015 (1.003-1.030) Urine Protein <15 mg/dl (Negative) mg/dL Urine Glucose (UA) Neg (Negative) mg/dL Urine Ketones Neg (Negative) mg/dL Urine Blood Sm (Negative) Urine Nitrite Neg (Negative) Urine Bilirubin Neg (Negative) Urine Urobilinogen 4.0 (<2.0) mg/dL Ur Leukocyte Esterase Neg (Negative) Urine WBC (Auto) 1.0 (0.0-6.0) /HPF Urine RBC (Auto) 2.0 (0.0-6.0) /HPF Urine Bacteria (Auto) 1+ (Negative) /HPF Urine Opiates Screen Negative Urine Methadone Screen Negative Ur Barbiturates Screen Negative Ur Phencyclidine Scrn Negative Ur Amphetamines Screen Negative U Benzodiazepines Scrn Negative Urine Cocaine Screen Positive U Marijuana (THC) Screen Negative Drugs of Abuse Note Disclamer Plasma/Serum Alcohol (0-0.07) % - Radiology Data Radiology results: report reviewed US abdomen limited INDICATION / CLINICAL INFORMATION: Abd pain and distention, Liver failure. COMPARISON: Abdominal ultrasound dated 10/06/2016. CT angiogram chest, including the upper abdomen, dated 01/31/2021. FINDINGS: No definite stones are demonstrated in the gallbladder, but the gallbladder wall is abnormally thickened, with slight pericholecystic fluid. Ultrasound also demonstrates a small amount of ascites in the upper abdomen. This can sometimes cause an appearance of pericholecystic edema. A small low-attenuation lesion in the left hepatic lobe is not seen on recent CT. IMPRESSION: 1. No definite stones, but ultrasound appearance is very suggestive of cholecystitis, possibly chronic. 2. Questionable left hepatic lobe lesion. CT HEAD WITHOUT CONTRAST INDICATION / CLINICAL INFORMATION: AMS. TECHNIQUE: All CT scans at this location are performed using CT dose reduction for ALARA by means of automated exposure control. COMPARISON: None available. There is a record of prior CT head study dated 01/16/2012 this examination could not be retrieved for comparison at the time of this interpretation FINDINGS: HEMORRHAGE: No evidence of intracranial hemorrhage or extra-axial fluid collection. EXTRA-AXIAL SPACES: Cortical sulci and sylvian fissures are enlarged reflecting a degree of parenchymal volume loss which is greater than expected for the patient's age of 65 years. Basilar cisterns have an unremarkable appearance. VENTRICULAR SYSTEM: The third and lateral ventricles are enlarged reflecting presence of moderate parenchymal volume loss. CEREBRAL PARENCHYMA: Periventricular and deep white matter lucency is observed. This is probably secondary to microvascular ischemic change. There is no indication of recent infarction. No areas of encephalomalacia are identified. MIDLINE SHIFT OR HERNIATION: There is no mass effect. CEREBELLUM / BRAINSTEM: Brainstem has an unremarkable appearance. Age related cerebellar atrophy is noted. MIDLINE STRUCTURES:Pituitary gland has an unremarkable appearance. No abnormalities are seen in the pineal region. INTRACRANIAL VESSELS:Calcified atherosclerotic plaque is present along the course of the cavernous segments of both internal carotid arteries. ORBITS: visualized portions of the orbits have an unremarkable appearance. SOFT TISSUES of HEAD: No significant abnormality. CALVARIUM: Evaluation of bone windows reveals no abnormalities. PARANASAL SINUSES / MASTOID AIR CELLS: Paranasal sinuses are free from inflammatory mucosal disease. Mastoid air cells are normally pneumatized. IMPRESSION: 1. Moderate parenchymal volume loss and microvascular ischemic change, greater than expected for patient's age of 65 years.. 2. No acute intracranial abnormality. - Medical Decision Making This patient presents to the emergency department with scleral icterus, bruising, some type of subcutaneous nodules, recent confusion and some issues with feeling off balance. He has a history of alcohol abuse and recently was diagnosed with liver failure by his PCP. On examination the patient is slightly confused, AAO x2, to person and place but not time. He does follow commands. No facial asymmetry. No pronator drift or dysmetria. The patient does not have any tenderness to palpation of the abdomen but it is slightly distended. He has some edema to the left hand and to the legs. The patient's labs shows anemia with a hemoglobin of about 9, thrombocytopenia with a platelet count of about 50, transaminitis with an AST of about 115, elevated total bilirubin of 3.5. CT of the head without contrast does not show any bleed, large vessel occlusion, hydrocephalus, or any other acute process. Ultrasound of the abdomen shows some ascites. There is some pericholecystic fluid that may be secondary to ascites. There is some gallbladder wall thickening. This could represent cholecystitis, possibly chronic. I briefly spoke with the general surgeon on- call who agrees that this does not appear to be something that requires any type of immediate surgical intervention and given the elevated INR, thrombocytopenia, and his other issues, he is not a good surgical candidate at this time. She will be happy to consult on the patient if requested by the medicine service, but there is nothing to do from a surgical standpoint at this time. Patient will be admitted to the hospital has been accepted for admission by Dr. Lee. Critical Care Time: No Critical care attestation.: If time is entered above; I have spent that time in minutes in the direct care of this critically ill patient, excluding procedure time. ED Disposition Clinical Impression: Hepatic encephalopathy, Cholecystitis, Elevated bilirubin, Thrombocytopenia Liver failure Qualifiers: Liver failure chronicity: unspecified chronicity Hepatic coma status: without hepatic coma Qualified Code(s): K72.90 - Hepatic failure, unspecified without coma Hypertension Qualifiers: Hypertension type: essential hypertension Qualified Code(s): I10 - Essential (primary) hypertension Disposition: -09 OP ADMIT IP TO THIS HOSP Is pt being admited?: Yes Condition: Serious Instructions: Hypertension (ED) Time of Disposition: 19:12
[2021-05-21 17:58] LABS: Bacteria,Urine 1+ /HPF (Negative); Bilirubin,Urine NEG (Negative); Blood,Urine SM (Negative); Color,Urine Amber (Yellow); Protein,Urine <15 mg/dL mg/dL (Negative)
[2021-05-21 18:05] LABS: Amphetamine Screen,Urine Negative; Benzodiazepines Screen,Urine Negative; Cannabinoid Screen,Urine Negative; Methadone Screen,Urine Negative; Opiate Screen,Urine Negative
[2021-05-21 18:20] LABS: Cocaine Screen,Urine Positive
--- NOTE | 2021-05-21 18:59 | Ultrasound Report ---
US abdomen limited INDICATION / CLINICAL INFORMATION: Abd pain and distention, Liver failure. COMPARISON: Abdominal ultrasound dated 10/06/2016. CT angiogram chest, including the upper abdomen, dated 02/01/20. FINDINGS: No definite stones are demonstrated in the gallbladder, but the gallbladder wall is abnormally th[place]ke [place], with slight pericholecystic fluid. Ultrasound also demonstrates a small amount of ascites in the upper abdomen. This can sometimes cause an appearance of pericholecystic edema. A small low-attenuation lesion in the left hepatic lobe is not seen on recent CT. IMPRESSION: 1. No definite stones, but ultrasound appearance is very suggestive of cholecystitis, possibly chroni c. 2. Questionable left hepatic lobe lesion. CT abdomen with IV contrast would be helpful for evaluation of both these findings. Signer Name: Jeffrey Nassar MD Signed: 05/21/2021 6:54 PM Workstation Name: [id number]
--- NOTE | 2021-05-21 19:25 | Cat Scan Report ---
CT HEAD WITHOUT CONTRAST INDICATION / CLINICAL INFORMATION: AMS. TECHNIQUE: All CT scans at this location are performed using CT dose reduction for ALARA by means of automated e xposure control. COMPARISON: None available. There is a record of prior CT head study dated 01/16/2012 this examination could not b e retrieved for comparison at the time of this interpretation FINDINGS: HEMORRHAGE: No evidence of intracranial hemorrhage or extra-axial fluid collection. EXTRA-AXIAL SPACES: Cortical sulci and sylvian fissures are enlarged reflecting a degree of parenchym al volume loss which is greater than expected for the patient's age of 65 years. Basilar cisterns hav e an unremarkable appearance. VENTRICULAR SYSTEM: The third and lateral ventricles are enlarged reflecting presence of moderate par enchymal volume loss. CEREBRAL PARENCHYMA: Periventricular and deep white matter lucency is observed. This is probably seco ndary to microvascular ischemic change. There is no indication of recent infarction. No areas of ence phalomalacia are identified. MIDLINE SHIFT OR HERNIATION: There is no mass effect. CEREBELLUM / BRAINSTEM: Brainstem has an unremarkable appearance. Age related cerebellar atrophy is n oted. MIDLINE STRUCTURES:Pituitary gland has an unremarkable appearance. No abnormalities are seen in the p ineal region. INTRACRANIAL VESSELS:Calcified atherosclerotic plaque is present along the course of the cavernous se gments of both internal carotid arteries. ORBITS: visualized portions of the orbits have an unremarkable appearance. SOFT TISSUES of HEAD: No significant abnormality. CALVARIUM: Evaluation of bone windows reveals no abnormalities. PARANASAL SINUSES / MASTOID AIR CELLS: Paranasal sinuses are free from inflammatory mucosal disease. Mastoid air cells are normally pneumatized. IMPRESSION: 1. Moderate parenchymal volume loss and microvascular ischemic change, greater than expected for anshu ent's age of 65 years.. 2. No acute intracranial abnormality. Signer Name: Yosi Hutchinson MD Signed: 05/21/2021 7:20 PM Workstation Name: [id number]
[2021-05-21] MEDS ORDERED: hydrALAZINE 20 MG/1 ML INJ IV ONE (19:50)
[2021-05-21] MEDS ORDERED: SODIUM CHLORIDE 0.45% 1000 ML 1,000 ML IV SCH (23:45)
[2021-05-21] MEDS ORDERED: FAMOTIDINE 20 MG/2 ML INJ IV SCH (23:45)
[2021-05-21] MEDS ORDERED: ACETAMINOPHEN 325 MG TAB PO PRN (23:55)
[2021-05-21] MEDS ORDERED: ONDANSETRON 4 MG/2 ML INJ IV PRN (23:55)
[2021-05-21] MEDS ORDERED: HYDROmorphone 1 MG/1 ML INJ IV PRN (23:56)
[2021-05-21] MEDS ORDERED: MORPHINE 2 MG/1 ML INJ IV PRN (23:56)
--- NOTE | 2021-05-22 00:02 | History and Physical Report ---
History of Present Illness Date of examination: 05/21/21 Date of admission: 05/21/21 19:19 Chief complaint: Altered sensorium History of present illness: 65-year-old male with history of hypertension and GERD brought in by for confusion swollen abdomen and bilateral pedal edema, icterus. Patient has been progressively getting weaker over the past 1 week. Patient has been off balance while walking but no recent falls. Patient uses excessive alcohol in the form of whiskey 3-4 times a week for the last 5 years. Drinks about a half a bottle to a bottle of whiskey which is 50 mm. Patient also admits to intermittent cocaine use. Patient was referred to golf sales associate but the appointment is a few weeks later. Primary care physician is - Past Medical History Previous Medical History?: Yes --Hypertension: Yes --Congestive Heart Failure: Yes --Liver Disease: Yes --Additional medical history: high cholesterol - Surgical History Past Surgical History?: Yes Additional Surgical History: rotator cuff, hip Family history Htn - Social History Smoking Status: Never Smoker, occasional cocaine use Substance Use Type: Alcohol excessively about a bottle of whiskey 3-4 times a week for the last 6 years Review of Systems ROS: Stated complaint: CONFUSED YELLOW EYES Other details as noted in HPI Comment: All other systems reviewed and negative Constitutional: denies: chills, fever Eyes: Icterus ENT: denies: ear pain, throat pain Respiratory: denies: cough, shortness of breath Cardiovascular: denies: chest pain, palpitations Gastrointestinal: abdominal pain. denies: vomiting Genitourinary: denies: dysuria, discharge Musculoskeletal: joint swelling. Swelling of both the legs Skin: change in color. denies: rash Neurological: Difficulty walking, alert and oriented, no signs of encephalopathy Patient able to give clear history Hematological/Lymphatic: easy bruising Medications and Allergies Allergies Allergy/AdvReac Type Severity Reaction Status Date / Time lisinopril Allergy Severe EVERYTHING Verified 05/22/21 05:30 SWELLS Home Medications Medication Instructions Recorded Confirmed Last Taken Type Aspirin EC [Halfprin EC] 81 mg PO QDAY #30 tablet 04/01/19 05/22/21 05/21/21 09:00 Rx Folic Acid [Folvite] 1 mg PO QDAY #30 tablet 04/01/19 05/22/21 05/21/21 09:00 Rx Losartan [Cozaar] 50 mg PO QDAY #30 tablet 04/01/19 05/22/21 05/21/21 09:00 Rx Metoprolol Xl [Metoprolol 50 mg PO QDAY #30 tablet 04/01/19 05/22/21 05/21/21 09:00 Rx SUCCINATE ER TAB] Multivitamin [Multiple Vitamins] 1 each PO DAILY #30 tablet 04/01/19 05/22/21 05/21/21 09:00 Rx NIFEdipine XL [Procardia Xl] 60 mg PO QDAY #30 tablet 04/01/19 05/22/21 05/21/21 09:00 Rx Spironolactone [Aldactone] 25 mg PO QDAY #30 tablet 04/01/19 05/22/21 05/21/21 09:00 Rx Pantoprazole [Protonix] 40 mg PO QDAY #30 tablet 01/31/21 05/22/21 05/21/21 09:00 Rx Exam - Constitutional Vitals: Temp Pulse Resp BP Pulse Ox 98.3 F 107 H 13 188/99 100 05/21/21 18:58 05/21/21 21:36 05/21/21 21:36 05/21/21 21:36 05/21/21 21:36 General appearance: Present: no acute distress, well-nourished - EENT Eyes: Present: PERRL, scleral icterus ENT: hearing intact, clear oral mucosa - Neck Neck: Present: supple, normal ROM - Respiratory Respiratory effort: normal Respiratory: bilateral: CTA - Cardiovascular Heart rate: 78 Rhythm: regular Heart Sounds: Present: S1 & S2. Absent: rub, click - Extremities Extremities: pulses symmetrical, No edema Peripheral Pulses: within normal limits - Abdominal General gastrointestinal: Present: soft, non-tender, distended (No fluid thrill), normal bowel sounds Male genitourinary: Present: normal - Rectal Rectal Exam: deferred - Integumentary Integumentary: Present: clear, warm, dry, jaundice - Musculoskeletal Musculoskeletal: gait normal, strength equal bilaterally - Psychiatric Psychiatric: appropriate mood/affect, intact judgment & insight - Neurologic Neurologic: CNII-XII intact, moves all extremities - Allied Health Allied health notes reviewed: nursing, case management Results - Labs CBC & Chem 7: 05/22/21 03:27 05/22/21 03:27 Labs: Laboratory Last Values WBC 5.5 K/mm3 (4.5-11.0) 05/21/21 14:26 RBC 2.23 M/mm3 (3.65-5.03) L 05/21/21 14:26 Hgb 9.1 gm/dl (11.8-15.2) L 05/21/21 14:26 Hct 26.4 % (35.5-45.6) L 05/21/21 14:26 MCV 118 fl (84-94) H 05/21/21 14:26 MCH 41 pg (28-32) H 05/21/21 14: MCHC 35 % (32-34) H 05/21/21 14: RDW 17.2 % (13.2-15.2) H 05/21/21 14: Plt Count 53 K/mm3 (140-440) L 05/21/21 14:26 Lymph % (Auto) 22.9 % (13.4-35.0) 05/21/21 14: [place] % (Auto) 14.5 % (0.0-7.3) H 05/21/21 14: Eos % (Auto) 1.6 % (0.0-4.3) 05/21/21 14: Baso % (Auto) 0.6 % (0.0-1.8) 05/21/21 14: Lymph # (Auto) 1.3 K/mm3 (1.2-5.4) 05/21/21 14: [place] # (Auto) 0.8 K/mm3 (0.0-0.8) 05/21/21 14: Eos # (Auto) 0.1 K/mm3 (0.0-0.4) 05/21/21 14: Baso # (Auto) 0.0 K/mm3 (0.0-0.1) 05/21/21 14: Seg Neutrophils % 60.4 % (40.0-70.0) 05/21/21 14: Seg Neutrophils # 3.3 K/mm3 (1.8-7.7) 05/21/21 14:26 PT 21.6 Sec. (12.2-14.9) H 05/21/21 14:26 INR 1.81 (0.87-1.13) H 05/21/21 14:26 APTT 43.3 Sec. (24.2-36.6) H 05/21/21 14:26 Sodium 138 mmol/L (137-145) 05/21/21 14:26 Potassium 3.4 mmol/L (3.6-5.0) L 05/21/21 14:26 Chloride 103.3 mmol/L (98-107) 05/21/21 14:26 Carbon Dioxide 26 mmol/L (22-30) 05/21/21 14:26 Anion Gap 12 mmol/L 05/21/21 14:26 BUN 19 mg/dL (9-20) 05/21/21 14:26 Creatinine 0.8 mg/dL (0.8-1.3) 05/21/21 14:26 Estimated GFR > 60 ml/min 05/21/21 14:26 BUN/Creatinine Ratio 24 % 05/21/21 14:26 Glucose 106 mg/dL (75-100) H 05/21/21 14:26 Calcium 8.6 mg/dL (8.4-10.2) 05/21/21 14:26 Total Bilirubin 3.50 mg/dL (0.1-1.2) H 05/21/21 14:26 Total Bilirubin 3.50 mg/dL (0.1-1.2) H 05/21/21 14:26 Direct Bilirubin 1.8 mg/dL (0-0.2) H 05/21/21 14:26 Indirect Bilirubin 1.7 mg/dL 05/21/21 14:26 AST 112 units/L (5-40) H 05/21/21 14:26 ALT 33 units/L (7-56) 05/21/21 14:26 Alkaline Phosphatase 194 units/L (35-129) H 05/21/21 14:26 Ammonia 47.0 umol/L (25-60) 05/21/21 14:26 Total Protein 8.3 g/dL (6.3-8.2) H 05/21/21 14:26 Albumin 1.9 g/dL (3.9-5) L 05/21/21 14:26 Albumin/Globulin Ratio 0.3 % 05/21/21 14:26 Lipase 52 units/L (13-60) 05/21/21 14:26 Urine Color Radha (Yellow) 05/21/21 17:45 Urine Turbidity Clear (Clear) 05/21/21 17:45 Urine pH 5.0 (5.0-7.0) 05/21/21 17:45 Ur Specific [place] 1.015 (1.003-1.030) 05/21/21 17:45 Urine Protein <15 mg/dl mg/dL (Negative) 05/21/21 17:45 Urine Glucose (UA) Neg mg/dL (Negative) 05/21/21 17:45 Urine Ketones Neg mg/dL (Negative) 05/21/21 17:45 Urine Blood Sm (Negative) 05/21/21 17:45 Urine Nitrite Neg (Negative) 05/21/21 17:45 Urine Bilirubin Neg (Negative) 05/21/21 17:45 Urine Urobilinogen 4.0 mg/dL (<2.0) 05/21/21 17:45 Ur Leukocyte Esterase Neg (Negative) 05/21/21 17:45 Urine WBC (Auto) 1.0 /HPF (0.0-6.0) 05/21/21 17:45 Urine RBC (Auto) 2.0 /HPF (0.0-6.0) 05/21/21 17:45 Urine Bacteria (Auto) 1+ /HPF (Negative) 05/21/21 17:45 Urine Opiates Screen Negative 05/21/21 17:45 Urine Methadone Screen Negative 05/21/21 17:45 Ur Barbiturates Screen Negative 05/21/21 17:45 Ur Phencyclidine Scrn Negative 05/21/21 17:45 Ur Amphetamines Screen Negative 05/21/21 17:45 U Benzodiazepines Scrn Negative 05/21/21 17:45 Urine Cocaine Screen Positive 05/21/21 17:45 U Marijuana (THC) Screen Negative 05/21/21 17:45 Drugs of Abuse Note Disclamer 05/21/21 17:45 Plasma/Serum Alcohol < 0.01 % (0-0.07) 05/21/21 17:24 Short CBC 05/21/21 05/22/21 Range/Units 14:26 03:27 WBC 5.5 5.6 (4.5-11.0) K/mm3 Hgb 9.1 L 8.2 L (11.8-15.2) gm/dl Hct 26.4 L 24.0 L (35.5-45.6) % Plt Count 53 L 50 L (140-440) K/mm3 BMP 05/21/21 05/22/21 05/22/21 14:26 03:27 03:27 Sodium 138 135 L Potassium 3.4 L 3.0 L Chloride 103.3 103.0 Carbon Dioxide 26 25 BUN 19 18 Creatinine 0.8 0.8 Glucose 106 H 115 H Calcium 8.6 8.0 L 8.0 L Liver Function 05/21/21 05/21/21 05/22/21 Range/Units 14:26 14:26 03:27 Total Bilirubin 3.50 H 3.50 H 3.10 H (0.1-1.2) mg/dL Direct Bilirubin 1.8 H (0-0.2) mg/dL AST 112 H 94 H (5-40) units/L ALT 33 31 (7-56) units/L Alkaline Phosphatase 194 H 170 H (35-129) units/L Albumin 1.9 L 1.6 L (3.9-5) g/dL 05/22/21 Range/Units 03:27 Total Bilirubin (0.1-1.2) mg/dL Direct Bilirubin (0-0.2) mg/dL AST (5-40) units/L ALT (7-56) units/L Alkaline Phosphatase (35-129) units/L Albumin 1.6 L (3.9-5) g/dL Urine 05/21/21 Range/Units 17:45 Urine Color Radha (Yellow) Urine pH 5.0 (5.0-7.0) Ur Specific [place] 1.015 (1.003-1.030) Urine Protein <15 mg/dl (Negative) mg/dL Urine Glucose (UA) Neg (Negative) mg/dL - Imaging and Cardiology US - abdomen: report reviewed Imaging and Cardiology: Abdominal ultrasound No definitive stones in the gallbladder. Gallbladder wall is abnormally thickened with slight pericholecystic fluid. Ultrasound also demonstrates a small amount of ascites in the upper abdomen. This can sometimes cause an appearance of pericholecystic edema. Final impression No definitive stones but ultrasound evidence suggestive of cholecystitis possibly chronic. Chronic left hepatic lobe lesion. CT abdomen with IV contrast will be helpful for evaluation of this findings. Assessment and Plan Advance Directives: Yes - Patient Problems (1) Acute hepatitis Current Visit: Yes Status: Acute Plan to address problem: Patient is acute hepatitis profile is negative. Apparently secondary to alcohol dependence. Pro time is elevated which is worrisome. Total bilirubin is 3.5. AST is 112. Pro time is 1.8 Albumin is 1.9. 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 Plan to address problem: Patient has hepatitis secondary to alcohol Hep A B AND C ruled out COUNSELED ABOUT ETOH DEPENDENCE PATIENT INITIATED ON CIWA PROTOCOL (3) Hypertension Current Visit: Yes Status: Chronic Qualifiers: Hypertension type: essential hypertension Qualified Code(s): I10 - Essential (primary) hypertension Plan to address problem: Continue antihypertensives and adjust medications (4) Ascites Current Visit: Yes Status: Chronic Qualifiers: Ascites type: due to alcoholic hepatitis Qualified Code(s): K70.11 - Alcoholic hepatitis with ascites Plan to address problem: CT abdomen with IV contrast requested For better delineation and to rule out cholecystitis (5) Cholecystitis Current Visit: Yes Status: Chronic Plan to address problem: Unlikely (6) Severe malnutrition Current Visit: Yes Status: Chronic Plan to address problem: Albumin is 1.9 Dietitian consult requested (7) Hypokalemia Current Visit: Yes Status: Acute Plan to address problem: Supplemented (8) Anemia Current Visit: Yes Status: Chronic Qualifiers: Anemia type: unspecified type Qualified Code(s): D64.9 - Anemia, unspecified Plan to address problem: Anemia work-up Probably nutritional because of alcohol dependence (9) DVT prophylaxis Current Visit: Yes Status: Acute Plan to address problem: On SCDs and GI prophylaxis
[2021-05-22] MEDS ORDERED: LORazepam 2 MG/ML VIAL IV PRN (00:05)
[2021-05-22 03:58] LABS: Basophils % (Auto) 0.4 % (0.0-1.8); Eosinophils # (Auto) 0.1 K/mm3 (0.0-0.4); Eosinophils % (Auto) 1.3 % (0.0-4.3); Hemoglobin 8.2 gm/dl (11.8-15.2); Lymphocytes # (Auto) 1.1 K/mm3 (1.2-5.4); Lymphocytes % (Auto) 20.3 % (13.4-35.0); Mean Corpuscular HGB Conc 34 % (32-34); Monocytes # (Auto) 0.9 K/mm3 (0.0-0.8); Red Blood Count 2.02 M/mm3 (3.65-5.03); Red Cell Distribution Width 17.2 % (13.2-15.2)
[2021-05-22 03:59] LABS: Mean Corpuscular Volume 119 fl (84-94); Platelet Count 50 K/mm3 (140-440)
[2021-05-22 04:03] LABS: Albumin 1.6 g/dL (3.9-5)
[2021-05-22 04:04] LABS: Alanine Aminotransferase 31 units/L (7-56); Albumin 1.6 g/dL (3.9-5); BUN/Creatinine Ratio 23; Blood Urea Nitrogen 18 mg/dL (9-20); Hemolysis Index 6
[2021-05-22 04:50] LABS: Hepatitis B Surface Antigen Non-Reactive (Negative); Hepatitis C Virus Antibody Non-Reactive (NonReactive)
--- NOTE | 2021-05-22 07:35 | Progress Note ---
Assessment and Plan Assessment and plan: (1) Acute hepatitis Current Visit: Yes Status: Acute Plan to address problem: Patient is acute hepatitis profile is negative. Apparently secondary to alcohol dependence. Pro time is elevated which is worrisome. Total bilirubin is 3.5. AST is 112. Pro time is 1.8 Albumin is 1.9. 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 Plan to address problem: Patient has hepatitis secondary to alcohol Hep A B AND C ruled out COUNSELED ABOUT ETOH DEPENDENCE PATIENT INITIATED ON CIWA PROTOCOL (3) Hypertension Current Visit: Yes Status: Chronic Qualifiers: Hypertension type: essential hypertension Qualified Code(s): I10 - Essential (primary) hypertension Plan to address problem: Continue antihypertensives and adjust medications (4) Ascites Current Visit: Yes Status: Chronic Qualifiers: Ascites type: due to alcoholic hepatitis Qualified Code(s): K70.11 - Alcoholic hepatitis with ascites Plan to address problem: CT abdomen with IV contrast requested For better delineation and to rule out cholecystitis (5) Cholecystitis Current Visit: Yes Status: Chronic Plan to address problem: Unlikely (6) Severe malnutrition Current Visit: Yes Status: Chronic Plan to address problem: Albumin is 1.9 Dietitian consult requested (7) Hypokalemia Current Visit: Yes Status: Acute Plan to address problem: Supplemented (8) Anemia Current Visit: Yes Status: Chronic Qualifiers: Anemia type: unspecified type Qualified Code(s): D64.9 - Anemia, unspecified Plan to address problem: Anemia work-up Probably nutritional because of alcohol dependence (9) DVT prophylaxis Current Visit: Yes Status: Acute Plan to address problem: On SCDs and GI prophylaxis 05/22/2021 -UDS is positive for cocaine -Hypokalemia repleted -GI consulted for hyperbilirubinemia -Ultrasound is suggestive of cholecystitis likely chronic. Will follow GI evaluation and if needed I will consult general surgery. -Patient has confusion, ammonia level is normal -Hypokalemia and hypophosphatemia; I put electrolyte replacement protocol History Interval history: Patient was seen and evaluated this morning Patient was confused Hospitalist Physical - Physical exam Narrative exam: Not in cardiopulmonary distress. The patient appeared well nourished and normally developed. Vital signs as documented. Head exam is unremarkable. Scleral icterus . Neck is without jugular venous distension, thyromegaly, or carotid bruits. Lungs are clear to auscultation. Cardiac exam reveals regular rate and Rhythm. Abdominal exam reveals ascites. Extremities are trace pedal edema. CHAIN PEGGER: Alert and oriented 3. No focal weakness. - Constitutional Vitals: Temp Pulse Resp BP Pulse Ox 98.3 F 99 H 13 179/88 99 05/21/21 18:58 05/21/21 23:28 05/21/21 21:36 05/21/21 23:28 05/21/21 23:28 General appearance: Present: no acute distress, well-nourished Results - Labs CBC & Chem 7: 05/22/21 03:27 05/22/21 03:27 Labs: Laboratory Last Values WBC 5.6 K/mm3 (4.5-11.0) 05/22/21 03:27 RBC 2.02 M/mm3 (3.65-5.03) L 05/22/21 03:27 Hgb 8.2 gm/dl (11.8-15.2) L 05/22/21 03:27 Hct 24.0 % (35.5-45.6) L 05/22/21 03:27 MCV 119 fl (84-94) H 05/22/21 03:27 MCH 41 pg (28-32) H 05/22/21 03:27 MCHC 34 % (32-34) 05/22/21 03:27 RDW 17.2 % (13.2-15.2) H 05/22/21 03:27 Plt Count 50 K/mm3 (140-440) L 05/22/21 03:27 Lymph % (Auto) 20.3 % (13.4-35.0) 05/22/21 03:27 [place] % (Auto) 16.0 % (0.0-7.3) H 05/22/21 03:27 Eos % (Auto) 1.3 % (0.0-4.3) 05/22/21 03:27 Baso % (Auto) 0.4 % (0.0-1.8) 05/22/21 03:27 Lymph # (Auto) 1.1 K/mm3 (1.2-5.4) L 05/22/21 03:27 [place] # (Auto) 0.9 K/mm3 (0.0-0.8) H 05/22/21 03:27 Eos # (Auto) 0.1 K/mm3 (0.0-0.4) 05/22/21 03:27 Baso # (Auto) 0.0 K/mm3 (0.0-0.1) 05/22/21 03:27 Seg Neutrophils % 62.0 % (40.0-70.0) 05/22/21 03:27 Seg Neutrophils # 3.5 K/mm3 (1.8-7.7) 05/22/21 03:27 PT 21.6 Sec. (12.2-14.9) H 05/21/21 14:26 INR 1.81 (0.87-1.13) H 05/21/21 14:26 APTT 43.3 Sec. (24.2-36.6) H 05/21/21 14:26 Sodium 135 mmol/L (137-145) L 05/22/21 03:27 Potassium 3.0 mmol/L (3.6-5.0) L 05/22/21 03:27 Chloride 103.0 mmol/L (98-107) 05/22/21 03:27 Carbon Dioxide 25 mmol/L (22-30) 05/22/21 03:27 Anion Gap 10 mmol/L 05/22/21 03:27 BUN 18 mg/dL (9-20) 05/22/21 03:27 Creatinine 0.8 mg/dL (0.8-1.3) 05/22/21 03:27 Estimated GFR > 60 ml/min 05/22/21 03:27 BUN/Creatinine Ratio 23 % 05/22/21 03:27 Glucose 115 mg/dL (75-100) H 05/22/21 03:27 Hemoglobin A1c 5.3 % (4-6) 05/22/21 03:27 Calcium 8.0 mg/dL (8.4-10.2) L 05/22/21 03:27 Calcium 8.0 mg/dL (8.4-10.2) L 05/22/21 03:27 Phosphorus 1.80 mg/dL (2.5-4.5) L 05/22/21 03:27 Total Bilirubin 3.10 mg/dL (0.1-1.2) H 05/22/21 03:27 Direct Bilirubin 1.8 mg/dL (0-0.2) H 05/21/21 14:26 Indirect Bilirubin 1.7 mg/dL 05/21/21 14:26 AST 94 units/L (5-40) H 05/22/21 03:27 ALT 31 units/L (7-56) 05/22/21 03:27 Alkaline Phosphatase 170 units/L (35-129) H 05/22/21 03:27 Ammonia 57.0 umol/L (25-60) 05/22/21 03:27 Total Protein 7.6 g/dL (6.3-8.2) 05/22/21 03:27 Albumin 1.6 g/dL (3.9-5) L 05/22/21 03:27 Albumin 1.6 g/dL (3.9-5) L 05/22/21 03:27 Albumin/Globulin Ratio 0.3 % 05/22/21 03:27 Amylase 117 units/L (27-131) 05/22/21 03:27 Lipase 52 units/L (13-60) 05/21/21 14:26 Urine Color Radha (Yellow) 05/21/21 17:45 Urine Turbidity Clear (Clear) 05/21/21 17:45 Urine pH 5.0 (5.0-7.0) 05/21/21 17:45 Ur Specific [place] 1.015 (1.003-1.030) 05/21/21 17:45 Urine Protein <15 mg/dl mg/dL (Negative) 05/21/21 17:45 Urine Glucose (UA) Neg mg/dL (Negative) 05/21/21 17:45 Urine Ketones Neg mg/dL (Negative) 05/21/21 17:45 Urine Blood Sm (Negative) 05/21/21 17:45 Urine Nitrite Neg (Negative) 05/21/21 17:45 Urine Bilirubin Neg (Negative) 05/21/21 17:45 Urine Urobilinogen 4.0 mg/dL (<2.0) 05/21/21 17:45 Ur Leukocyte Esterase Neg (Negative) 05/21/21 17:45 Urine WBC (Auto) 1.0 /HPF (0.0-6.0) 05/21/21 17:45 Urine RBC (Auto) 2.0 /HPF (0.0-6.0) 05/21/21 17:45 Urine Bacteria (Auto) 1+ /HPF (Negative) 05/21/21 17:45 Urine Opiates Screen Negative 05/21/21 17:45 Urine Methadone Screen Negative 05/21/21 17:45 Ur Barbiturates Screen Negative 05/21/21 17:45 Ur Phencyclidine Scrn Negative 05/21/21 17:45 Ur Amphetamines Screen Negative 05/21/21 17:45 U Benzodiazepines Scrn Negative 05/21/21 17:45 Urine Cocaine Screen Positive 05/21/21 17:45 U Marijuana (THC) Screen Negative 05/21/21 17:45 Drugs of Abuse Note Disclamer 05/21/21 17:45 Plasma/Serum Alcohol < 0.01 % (0-0.07) 05/21/21 17:24 Hepatitis A IgM Ab Non-reactive (NonReactive) 05/22/21 03:27 Hep Bs Antigen Non-reactive (Negative) 05/22/21 03:27 Hep B Core IgM Ab Non-reactive (NonReactive) 05/22/21 03:27 Hepatitis C Antibody Non-reactive (NonReactive) 05/22/21 03:27 [place]/IV: Voiding Method Toilet Active Medications - Current Medications Current Medications: Generic Name Dose Route Start Last Admin Trade Name Freq PRN Reason Stop Dose Admin Acetaminophen 650 mg 05/21/21 23:55 Acetaminophen 325 Mg Tab PO Q4H PRN Pain MILD(1-3)/Fever >100.5/COLLINS Famotidine 20 mg 05/21/21 23:45 05/22/21 00:42 Famotidine 20 Mg/2 Ml Inj IV 20 mg BID LILIBETH Administration Folic Acid 1 mg 05/22/21 10:00 Folic Acid 1 Mg Tab PO QDAY LILIBETH Hydromorphone HCl 0.5 mg 05/21/21 23:56 Hydromorphone 1 Mg/1 Ml Inj IV Q3H PRN Pain , Severe (7-10) Sodium Chloride 1,000 mls @ 75 mls/hr 05/21/21 23:45 05/22/21 00:42 Nacl 0.45% 1000 Ml IV 05/22/21 10:00 75 mls/hr DIRECT LILIBETH Administration Lorazepam 2 mg 05/22/21 00:05 Lorazepam 2 Mg/Ml Vial IV Q1H PRN CIWA-Ar 8-15 Losartan Potassium 50 mg 05/22/21 10:00 Losartan 50 Mg Tab PO QDAY [facility] Metoprolol Succinate 50 mg 05/22/21 08:00 Metoprolol Succinate Xl 50 Mg Tab PO QDAY@0800 [facility] Morphine Sulfate 2 mg 05/21/21 23:56 Morphine 2 Mg/1 Ml Inj IV Q4H PRN Pain, Moderate (4-6) Nifedipine 60 mg 05/22/21 10:00 Nifedipine Xl 60 Mg Tab PO QDAY@0600 [facility] Ondansetron HCl 4 mg 05/21/21 23:55 Ondansetron 4 Mg/2 Ml Inj IV Q8H PRN Nausea And Vomiting Pantoprazole Sodium 40 mg 05/22/21 10:00 Pantoprazole 40 Mg Tab PO QDAY [facility] Potassium Chloride 40 meq 05/22/21 07:38 05/22/21 07:03 Potassium Chloride Er 20 Meq Tab PO 05/22/21 07:39 40 meq ONCE ONE Administration Sodium Chloride 10 ml 05/22/21 10:00 Sodium Chloride 0.9% 10 Ml Flush Syringe IV BID [facility] Sodium Chloride 10 ml 05/21/21 23:55 Sodium Chloride 0.9% 10 Ml Flush Syringe IV PRN PRN LINE FLUSH Spironolactone 25 mg 05/22/21 10:00 Spironolactone 25 Mg Tab PO QDAY [facility]
[2021-05-22] MEDS ORDERED: POTASSIUM CHLORIDE ER 20 MEQ TAB PO ONE (07:38)
[2021-05-22] MEDS ORDERED: SPIRONOLACTONE 25 MG TAB PO SCH (10:00)
[2021-05-22] MEDS: PANTOPRAZOLE 40 MG TAB PO SCH (10:31)
[2021-05-22] MEDS: LOSARTAN 50 MG TAB PO SCH (10:31)
[2021-05-22] MEDS: FOLIC ACID 1 MG TAB PO SCH (10:32)
[2021-05-22] MEDS ORDERED: SODIUM PHOSPHATE 15 MMOL in SODIUM CHLORIDE 0.9% 250ML 150 ML IV PRN (10:45)
[2021-05-22] MEDS ORDERED: SODIUM PHOSPHATE IV ONE (12:00)
[2021-05-22] MEDS ORDERED: SODIUM CHLORIDE 0.9% IV ONE (12:00)
[2021-05-22] MEDS: NIFEdipine XL 60 MG TAB PO SCH (12:05)
--- NOTE | 2021-05-22 12:10 | Cat Scan Report ---
CT ABDOMEN AND PELVIS WITH CONTRAST HISTORY: Acute hepatitis and cholecystitis OMNI 300 100 ML 30ML OF GASTROGRAFIN COMPARISON: Ultrasound abdomen limited performed 05/21/2021 TECHNIQUE: Axial CT images were obtained through the abdomen and pelvis after 100 cc of IV contrast. Sagittal and coronal reformatted images. All CT scans at this location are performed using CT dose re duction for ALARA by means of automated exposure control. FINDINGS: CT ABDOMEN: Lung Bases: Mild cardiomegaly. Chronic right pleural thickening with scattered calcifications is note d at the right lung base. Visualized lungs are adequately aerated. Liver: There are moderate cirrhotic changes in the liver. No suspicious liver lesion is detected. Biliary: There is moderate diffuse gallbladder wall edema/thickening measuring up to [address] The gallbladder is not distended. No calcified gallstones are detected. This is probably nonspecific gal lbladder wall thickening related to liver disease and ascites. Spleen: No significant abnormality. Unenlarged. The spleen measures 9.1 cm in length. Pancreas: No significant abnormality. Adrenals: No significant abnormality. Kidneys: No significant abnormality. Lymphatics: No lymphadenopathy. Vasculature: The arterial and venous structures are widely patent. No aneurysm. Recannulization of th e umbilical vein is noted. No large varicosities are appreciated. Bowel/Peritoneum: No evidence for bowel obstruction or focal inflammation. No obvious mass. Normal ap pendix. There is small ascites throughout the abdomen. No fluid collection or free air. CT PELVIS: : No significant abnormality. Osseous Structures: Right hip replacement generates artifact. Mild lumbar spondylosis is noted. No fr acture or suspicious bony lesion. Additional Findings: None IMPRESSION: Cirrhosis of the liver. No focal liver lesion. Small ascites. Again there is diffuse gallbladder wall thickening on CT as described. There is no evidence for abnor mal distention or calcified gallstones. This is more consistent with nonspecific gallbladder wall thi ckening secondary to liver disease and/or ascites. Cholecystitis is thought likely likely. Please cor relate with the patient's clinical presentation. Mild cardiomegaly. Chronic pleural thickening at the right lung base. Signer Name: Leon Ray Jr, MD Signed: 05/22/2021 12:06 PM Workstation Name: [id number]
[2021-05-22] MEDS: METOPROLOL SUCCINATE XL 50 MG TAB PO SCH (15:31)
[2021-05-22 16:19] LABS: % Iron Saturation 94.85 %
--- NOTE | 2021-05-22 16:35 | Gastroenterology Consultation ---
History of Present Illness - Reason for Consult Consult date: 05/22/21 Cirrhosis Requesting physician: ZOHRA HASKINS - History of Present Illness Is a pleasant 65-year-old gentleman who presents for edema Patient reports for last 2 weeks having worsening swelling in his hands and legs He reports drinking extensively Reports possible abdominal distention Reports that his doctor told his got a quit drinking and that he was referred to see a specialist about it but has not yet seen the specialist He denies any known history of liver problems Has never had EGD or colonoscopy Obtained/updated/reviewed patient's current medications Past History Past Medical History: No medical history, other (cirrhosis) Past Surgical History: No surgical history Social history: alcohol abuse Family history: no significant family history Medications and Allergies Allergies Allergy/AdvReac Type Severity Reaction Status Date / Time lisinopril Allergy Severe EVERYTHING Verified 05/22/21 05:30 [facility] Medications Medication Instructions Recorded Confirmed Last Taken Type Aspirin EC [Halfprin EC] 81 mg PO QDAY #30 tablet 04/01/19 05/22/21 05/21/21 09:00 Rx Folic Acid [Folvite] 1 mg PO QDAY #30 tablet 04/01/19 05/22/21 05/21/21 09:00 Rx Losartan [Cozaar] 50 mg PO QDAY #30 tablet 04/01/19 05/22/21 05/21/21 09:00 Rx Metoprolol Xl [Metoprolol 50 mg PO QDAY #30 tablet 04/01/19 05/22/21 05/21/21 09:00 Rx SUCCINATE ER TAB] Multivitamin [Multiple Vitamins] 1 each PO DAILY #30 tablet 04/01/19 05/22/21 05/21/21 09:00 Rx NIFEdipine XL [Procardia Xl] 60 mg PO QDAY #30 tablet 04/01/19 05/22/21 05/21/21 09:00 Rx Spironolactone [Aldactone] 25 mg PO QDAY #30 tablet 04/01/19 05/22/21 05/21/21 09:00 Rx Pantoprazole [Protonix] 40 mg PO QDAY #30 tablet 01/31/21 05/22/21 05/21/21 09:00 Rx Active Meds: Active Medications Acetaminophen (Acetaminophen 325 Mg Tab) 650 mg PO Q4H PRN PRN Reason: Pain MILD(1-3)/Fever >100.5/COLLINS Folic Acid (Folic Acid 1 Mg Tab) 1 mg PO QDAY [facility] Last Admin: 05/22/21 10:32 Dose: 1 mg Documented by: Hydromorphone HCl (Hydromorphone 1 Mg/1 Ml Inj) 0.5 mg IV Q3H PRN PRN Reason: Pain , Severe (7-10) Sodium Phosphate 15 mmol/ (Sodium Chloride) 255 mls @ 40 mls/hr IV Q4H PRN PRN Reason: Phosphorous level 1.2-2.5 mg/d Stop: 05/23/21 07:59 Lorazepam (Lorazepam 2 Mg/Ml Vial) 2 mg IV Q1H PRN PRN Reason: CIWA-Ar 8-15 Losartan Potassium (Losartan 50 Mg Tab) 50 mg PO QDAY [facility] Last Admin: 05/22/21 10:31 Dose: 50 mg Documented by: Metoprolol Succinate (Metoprolol Succinate Xl 50 Mg Tab) 50 mg PO QDAY@0800 [facility] Last Admin: 05/22/21 15:31 Dose: 50 mg Documented by: Morphine Sulfate (Morphine 2 Mg/1 Ml Inj) 2 mg IV Q4H PRN PRN Reason: Pain, Moderate (4-6) Nifedipine (Nifedipine Xl 60 Mg Tab) 60 mg PO QDAY@0600 [facility] Last Admin: 05/22/21 12:05 Dose: 60 mg Documented by: Ondansetron HCl (Ondansetron 4 Mg/2 Ml Inj) 4 mg IV Q8H PRN PRN Reason: Nausea And Vomiting Pantoprazole Sodium (Pantoprazole 40 Mg Tab) 40 mg PO QDAY [facility] Last Admin: 05/22/21 10:31 Dose: 40 mg Documented by: Sodium Chloride (Sodium Chloride 0.9% 10 Ml Flush Syringe) 10 ml IV BID [facility] Last Admin: 05/22/21 10:32 Dose: 10 ml Documented by: Sodium Chloride (Sodium Chloride 0.9% 10 Ml Flush Syringe) 10 ml IV PRN PRN PRN Reason: LINE FLUSH Spironolactone (Spironolactone 25 Mg Tab) 25 mg PO QDAY [facility] Last Admin: 05/22/21 12:05 Dose: 25 mg Documented by: Review of Systems - Review of Systems All systems: negative (10 Systems reviewed and negative except as mentioned above in the history of present illness) Exam - Constitutional Vital Signs: Temp Pulse Resp BP Pulse Ox 97.1 F L 92 H 18 187/100 99 05/22/21 11:56 05/22/21 11:56 05/22/21 11:56 05/22/21 11:56 05/22/21 11:56 General appearance: no acute distress - EENT ENT: hearing intact - Neck Neck: supple - Respiratory Respiratory effort: normal - Cardiovascular Rhythm: regular Extremity abnormal: edema - Gastrointestinal General gastrointestinal: Present: soft - Integumentary Integumentary: Present: dry - Neurologic Neurological: alert and oriented x3 - Psychiatric Psychiatric: appropriate mood/affect - Labs CBC & Chem 7: 05/22/21 03:27 05/22/21 Unknown Lab Results: Laboratory Results - last 24 hr 05/21/21 05/21/21 05/21/21 14:26 17:24 17:45 WBC RBC Hgb Hct MCV MCH MCHC RDW Plt Count Lymph % (Auto) Bent % (Auto) Eos % (Auto) Baso % (Auto) Lymph # (Auto) Bent # (Auto) Eos # (Auto) Baso # (Auto) Seg Neutrophils % Seg Neutrophils # Sodium Potassium Chloride Carbon Dioxide Anion Gap BUN Creatinine Estimated GFR BUN/Creatinine Ratio Glucose Hemoglobin A1c Calcium Phosphorus Iron TIBC % Saturation Transferrin Total Bilirubin 3.50 H Direct Bilirubin 1.8 H Indirect Bilirubin 1.7 AST ALT Alkaline Phosphatase Ammonia Total Protein Albumin Albumin/Globulin Ratio Amylase Vitamin B12 Urine Color Radha Urine Turbidity Clear Urine pH 5.0 Ur Specific Vernon 1.015 Urine Protein <15 mg/dl Urine Glucose (UA) Neg Urine Ketones Neg Urine Blood Sm Urine Nitrite Neg Urine Bilirubin Neg Urine Urobilinogen 4.0 Ur Leukocyte Esterase Neg Urine WBC (Auto) 1.0 Urine RBC (Auto) 2.0 Urine Bacteria (Auto) 1+ Urine Opiates Screen Urine Methadone Screen Ur Barbiturates Screen Ur Phencyclidine Scrn Ur Amphetamines Screen U Benzodiazepines Scrn Urine Cocaine Screen U Marijuana (THC) Screen Drugs of Abuse Note Plasma/Serum Alcohol < 0.01 Hepatitis A IgM Ab Hep Bs Antigen Hep B Core IgM Ab Hepatitis C Antibody 05/21/21 05/22/21 05/22/21 17:45 03:27 03:27 WBC 5.6 RBC 2.02 L Hgb 8.2 L Hct 24.0 L MCV 119 H MCH 41 H MCHC 34 RDW 17.2 H Plt Count 50 L Lymph % (Auto) 20.3 Bent % (Auto) 16.0 H Eos % (Auto) 1.3 Baso % (Auto) 0.4 Lymph # (Auto) 1.1 L Bent # (Auto) 0.9 H Eos # (Auto) 0.1 Baso # (Auto) 0.0 Seg Neutrophils % 62.0 Seg Neutrophils # 3.5 Sodium 135 L Potassium 3.0 L Chloride 103.0 Carbon Dioxide 25 Anion Gap 10 BUN 18 Creatinine 0.8 Estimated GFR > 60 BUN/Creatinine Ratio 23 Glucose 115 H Hemoglobin A1c Calcium 8.0 L Phosphorus Iron TIBC % Saturation Transferrin Total Bilirubin 3.10 H Direct Bilirubin Indirect Bilirubin AST 94 H ALT 31 Alkaline Phosphatase 170 H Ammonia Total Protein 7.6 Albumin 1.6 L Albumin/Globulin Ratio 0.3 Amylase Vitamin B12 Urine Color Urine Turbidity Urine pH Ur Specific Vernon Urine Protein Urine Glucose (UA) Urine Ketones Urine Blood Urine Nitrite Urine Bilirubin Urine Urobilinogen Ur Leukocyte Esterase Urine WBC (Auto) Urine RBC (Auto) Urine Bacteria (Auto) Urine Opiates Screen Negative Urine Methadone Screen Negative Ur Barbiturates Screen Negative Ur Phencyclidine Scrn Negative Ur Amphetamines Screen Negative U Benzodiazepines Scrn Negative Urine Cocaine Screen Positive U Marijuana (THC) Screen Negative Drugs of Abuse Note Disclamer Plasma/Serum Alcohol Hepatitis A IgM Ab Hep Bs Antigen Hep B Core IgM Ab Hepatitis C Antibody 05/22/21 05/22/21 05/22/21 03:27 03:27 03:27 WBC RBC Hgb Hct MCV MCH MCHC RDW Plt Count Lymph % (Auto) Bent % (Auto) Eos % (Auto) Baso % (Auto) Lymph # (Auto) Bent # (Auto) Eos # (Auto) Baso # (Auto) Seg Neutrophils % Seg Neutrophils # Sodium Potassium Chloride Carbon Dioxide Anion Gap BUN Creatinine Estimated GFR BUN/Creatinine Ratio Glucose Hemoglobin A1c 5.3 Calcium 8.0 L Phosphorus 1.80 L Iron TIBC % Saturation Transferrin Total Bilirubin Direct Bilirubin Indirect Bilirubin AST ALT Alkaline Phosphatase Ammonia Total Protein Albumin 1.6 L Albumin/Globulin Ratio Amylase 117 Vitamin B12 Urine Color Urine Turbidity Urine pH Ur Specific Vernon Urine Protein Urine Glucose (UA) Urine Ketones Urine Blood Urine Nitrite Urine Bilirubin Urine Urobilinogen Ur Leukocyte Esterase Urine WBC (Auto) Urine RBC (Auto) Urine Bacteria (Auto) Urine Opiates Screen Urine Methadone Screen Ur Barbiturates Screen Ur Phencyclidine Scrn Ur Amphetamines Screen U Benzodiazepines Scrn Urine Cocaine Screen U Marijuana (THC) Screen Drugs of Abuse Note Plasma/Serum Alcohol Hepatitis A IgM Ab Non-reactive Hep Bs Antigen Non-reactive Hep B Core IgM Ab Non-reactive Hepatitis C Antibody Non-reactive 05/22/21 05/22/21 05/22/21 03:27 07:56 07:56 WBC RBC Hgb Hct MCV MCH MCHC RDW Plt Count Lymph % (Auto) Bent % (Auto) Eos % (Auto) Baso % (Auto) Lymph # (Auto) Bent # (Auto) Eos # (Auto) Baso # (Auto) Seg Neutrophils % Seg Neutrophils # Sodium Potassium Chloride Carbon Dioxide Anion Gap BUN Creatinine Estimated GFR BUN/Creatinine Ratio Glucose Hemoglobin A1c Calcium Phosphorus Iron 92 TIBC 97 L % Saturation 94.85 Transferrin 89 L Total Bilirubin Direct Bilirubin Indirect Bilirubin AST ALT Alkaline Phosphatase Ammonia 57.0 Total Protein Albumin Albumin/Globulin Ratio Amylase Vitamin B12 2000 H Urine Color Urine Turbidity Urine pH Ur Specific Vernon Urine Protein Urine Glucose (UA) Urine Ketones Urine Blood Urine Nitrite Urine Bilirubin Urine Urobilinogen Ur Leukocyte Esterase Urine WBC (Auto) Urine RBC (Auto) Urine Bacteria (Auto) Urine Opiates Screen Urine Methadone Screen Ur Barbiturates Screen Ur Phencyclidine Scrn Ur Amphetamines Screen U Benzodiazepines Scrn Urine Cocaine Screen U Marijuana (THC) Screen Drugs of Abuse Note Plasma/Serum Alcohol Hepatitis A IgM Ab Hep Bs Antigen Hep B Core IgM Ab Hepatitis C Antibody 05/22/21 Unknown WBC RBC Hgb Hct MCV MCH MCHC RDW Plt Count Lymph % (Auto) Bent % (Auto) Eos % (Auto) Baso % (Auto) Lymph # (Auto) Bent # (Auto) Eos # (Auto) Baso # (Auto) Seg Neutrophils % Seg Neutrophils # Sodium Potassium 3.5 L Chloride Carbon Dioxide Anion Gap BUN Creatinine Estimated GFR BUN/Creatinine Ratio Glucose Hemoglobin A1c Calcium Phosphorus Iron TIBC % Saturation Transferrin Total Bilirubin Direct Bilirubin Indirect Bilirubin AST ALT Alkaline Phosphatase Ammonia Total Protein Albumin Albumin/Globulin Ratio Amylase Vitamin B12 Urine Color Urine Turbidity Urine pH Ur Specific Vernon Urine Protein Urine Glucose (UA) Urine Ketones Urine Blood Urine Nitrite Urine Bilirubin Urine Urobilinogen Ur Leukocyte Esterase Urine WBC (Auto) Urine RBC (Auto) Urine Bacteria (Auto) Urine Opiates Screen Urine Methadone Screen Ur Barbiturates Screen Ur Phencyclidine Scrn Ur Amphetamines Screen U Benzodiazepines Scrn Urine Cocaine Screen U Marijuana (THC) Screen Drugs of Abuse Note Plasma/Serum Alcohol Hepatitis A IgM Ab Hep Bs Antigen Hep B Core IgM Ab Hepatitis C Antibody Assessment and Plan Findings consistent with alcohol related cirrhosis with mild ascites on imaging Plan: Alcohol cessation education provided I modified the diuretics slightly so that patient is on Lasix 20 and Aldactone 50 daily for the ascites as well as patient will continue low-sodium diet Acute hepatitis panel negative Regarding long-term maintenance for patient's cirrhosis: Hepatocellular carcinoma -none visualized on CAT scan will require imaging every 6 months Esophageal varices -patient will be set up with an outpatient EGD when he follows up with me in clinic to screen for varices Ascites -as above Hepatic encephalopathy -none clinically, avoid alcohol avoid opiates avoid benzodiazepines Elevated INR -vitamin K, suspect some deficiency due to his alcohol Avoid hepatotoxins From GI perspective as long as patient is continue to clinically feel better tomorrow and his basic metabolic panel is stable he can be discharged with outpatient follow-up with me. I gave him my business card - Patient Problems (1) Cirrhosis with alcoholism Current Visit: Yes Status: Acute (2) Ascites Current Visit: Yes Status: Chronic Qualifiers: Ascites type: due to alcoholic hepatitis Qualified Code(s): K70.11 - Alcoholic hepatitis with ascites
[2021-05-22] MEDS ORDERED: FUROSEMIDE 40 MG TAB PO SCH (17:00)
[2021-05-22] MEDS ORDERED: SODIUM PHOSPHATE 15 MMOL in SODIUM CHLORIDE 0.9% 250ML 250 ML IV PRN (18:00)
[2021-05-22] MEDS: FUROSEMIDE 20 MG TAB PO SCH (18:58)
[2021-05-22] MEDS: PHYTONADIONE 5 MG/0.5 ML *ORAL LIQUID PO SCH (19:08)
--- NOTE | 2021-05-22 19:58 | Consultation ---
History of Present Illness - Reason for Consult Consult date: 05/22/21 Reason for consult: Alcohol Dependence - Chief Complaint Chief complaint: Altered sensorium - History of Present Psychiatric Illness Per Note: 65-year-old male with history of hypertension and GERD brought in by for confusion swollen abdomen and bilateral pedal edema, icterus. Patient has been progressively getting weaker over the past 1 week. Patient has been off balance while walking but no recent falls. Patient uses excessive alcohol in the form of whiskey 3-4 times a week for the last 5 years. Drinks about a half a bottle to a bottle of whiskey which is 50 mm. Patient also admits to intermittent cocaine use. Patient was referred to [facility] but the appointment is a few weeks later. Primary care physician is The patient is a 65 year old , retired male. In my interview with the pat miriam he reports that he started consuming alcohol since age 15. Patient reports drinking about 3-4 (12 ounces can) of beer and unknown amount shots of whiskey daily. Patient states he has never been diagnosed by a psychiatrist and has never been hospitalized for detoxification or rehabilitation. Patient was unable to state longest period of sobriety. Patient reports that he is doing well. Patient denies being depressed or excessively nervous. He presents with no symptoms of alcohol withdrawal. Patient denies any current cravings for alcohol. He denies any suicidal ideation and denies hallucinations. PAST PSYCHIATRIC HISTORY: Diagnoses:None Suicide attempts or Self-harm behavior: Denied Prior psychiatric hospitalizations: Denied Substance Abuse history: Cocaine Previous psychiatric medications tried: Denied Outpatient treatment:unknown PAST MEDICAL HISTORY: Family Psychiatric History: None reported or documented SOCIAL HISTORY Marital Status: Living Arrangements: Lives with spouse Employment Status: Retired Access to guns/weapons: n/a Education: unknown History of Abuse: n/a Legal History: n/a REVIEW OF SYSTEMS Constitutional: Negative for weight loss ENT: Negative for stridor Respiratory: Negative for cough or hemoptysis All other systems reviewed and are negative MENTAL STATUS EXAMINATION General Appearance and Behavior: Age appropriate, good hygiene, wearing appropriate clothes, uncooperative polite with questioning. Cooperation: cooperative Psychomotor Behavior: Psychomotor agitation Mood: "good" Affect and affective range: congruent Thought Process: goal directed Thought Content: Denies SI Speech: Normal, volume Intellectual Functioning: average Suicidal Ideation: Denied Homicidal Ideation: Denied hallucination: Denied Impulse Control: Intact Insight and Judgment:limited Memory: Intact Attention:Intact Orientation: Alert and oriented Diagnoses: (1)Alcohol Use Disorder, Severe- F10.20 Treatment Plan: Continue [facility] protocol Patient should be compliant with medications and not to use drugs and not to drink alcohol. PSYCHOTHERAPY: Supportive psychotherapy provided MEDICAL: Per primary team DELIRIUM PRECAUTIONS: Please re-orient patient frequently, keep lights on during the day, and minimize benzodiazepines and opiates as these medications could worsen patient's confusion. 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 Will sign off Thank you for the consult. Please contact with any questions and/or concerns. Medications and Allergies Allergies Allergy/AdvReac Type Severity Reaction Status Date / Time lisinopril Allergy Severe EVERYTHING Verified 05/22/21 05:30 [facility] Home Medications Medication Instructions Recorded Confirmed Last Taken Type Aspirin EC [Halfprin EC] 81 mg PO QDAY #30 tablet 04/01/19 05/22/21 05/21/21 09:00 Rx Folic Acid [Folvite] 1 mg PO QDAY #30 tablet 04/01/19 05/22/21 05/21/21 09:00 Rx Losartan [Cozaar] 50 mg PO QDAY #30 tablet 04/01/19 05/22/21 05/21/21 09:00 Rx Metoprolol Xl [Metoprolol 50 mg PO QDAY #30 tablet 04/01/19 05/22/21 05/21/21 09:00 Rx SUCCINATE ER TAB] Multivitamin [Multiple Vitamins] 1 each PO DAILY #30 tablet 04/01/19 05/22/21 05/21/21 09:00 Rx NIFEdipine XL [Procardia Xl] 60 mg PO QDAY #30 tablet 04/01/19 05/22/21 05/21/21 09:00 Rx Spironolactone [Aldactone] 25 mg PO QDAY #30 tablet 04/01/19 05/22/21 05/21/21 09:00 Rx Pantoprazole [Protonix] 40 mg PO QDAY #30 tablet 01/31/21 05/22/21 05/21/21 09:00 Rx Active Meds: Active Medications Acetaminophen (Acetaminophen 325 Mg Tab) 650 mg PO Q4H PRN PRN Reason: Pain MILD(1-3)/Fever >100.5/COLLINS Folic Acid (Folic Acid 1 Mg Tab) 1 mg PO QDAY [facility] Last Admin: 05/22/21 10:32 Dose: 1 mg Documented by: Furosemide (Furosemide 20 Mg Tab) 20 mg PO DAILY@0600 [facility] Last Admin: 05/22/21 18:58 Dose: 20 mg Documented by: Hydromorphone HCl (Hydromorphone 1 Mg/1 Ml Inj) 0.5 mg IV Q3H PRN PRN Reason: Pain , Severe (7-10) Sodium Phosphate 15 mmol/ (Sodium Chloride) 255 mls @ 40 mls/hr IV Q4H PRN PRN Reason: Phosphorous level 1.2-2.5 mg/d Stop: 05/23/21 07:59 Lorazepam (Lorazepam 2 Mg/Ml Vial) 2 mg IV Q1H PRN PRN Reason: CIWA-Ar 8-15 Losartan Potassium (Losartan 50 Mg Tab) 50 mg PO QDAY [facility] Last Admin: 05/22/21 10:31 Dose: 50 mg Documented by: Metoprolol Succinate (Metoprolol Succinate Xl 50 Mg Tab) 50 mg PO QDAY@0800 [facility] Last Admin: 05/22/21 15:31 Dose: 50 mg Documented by: Morphine Sulfate (Morphine 2 Mg/1 Ml Inj) 2 mg IV Q4H PRN PRN Reason: Pain, Moderate (4-6) Nifedipine (Nifedipine Xl 60 Mg Tab) 60 mg PO QDAY@0600 [facility] Last Admin: 05/22/21 12:05 Dose: 60 mg Documented by: Ondansetron HCl (Ondansetron 4 Mg/2 Ml Inj) 4 mg IV Q8H PRN PRN Reason: Nausea And Vomiting Pantoprazole Sodium (Pantoprazole 40 Mg Tab) 40 mg PO QDAY [facility] Last Admin: 05/22/21 10:31 Dose: 40 mg Documented by: Phytonadione (Phytonadione 5 Mg/0.5 Ml *Oral Liquid*) 5 mg PO QDAY [facility] Stop: 05/24/21 10:01 Last Admin: 05/22/21 19:08 Dose: 5 mg Documented by: Sodium Chloride (Sodium Chloride 0.9% 10 Ml Flush Syringe) 10 ml IV BID [facility] Last Admin: 05/22/21 10:32 Dose: 10 ml Documented by: Sodium Chloride (Sodium Chloride 0.9% 10 Ml Flush Syringe) 10 ml IV PRN PRN PRN Reason: LINE FLUSH Spironolactone (Spironolactone 25 Mg Tab) 25 mg PO QDAY [facility] Last Admin: 05/22/21 12:05 Dose: 25 mg Documented by: Spironolactone (Spironolactone 50 Mg Tab) 50 mg PO QDAY [facility] Mental Status Exam - Vital signs Last Vital Signs Temp 97.4 F L 05/22/21 15:42 Pulse 106 H 05/22/21 15:42 Resp 18 05/22/21 15:42 BP 116/66 05/22/21 18:58 Pulse Ox 100 05/22/21 15:42 Results Result Diagrams: 05/22/21 03:27 05/22/21 Unknown Abnormal lab results 05/22/21 05/22/21 05/22/21 Range/Units 03:27 03:27 03:27 RBC 2.02 L (3.65-5.03) M/mm3 Hgb 8.2 L (11.8-15.2) gm/dl Hct 24.0 L (35.5-45.6) % MCV 119 H (84-94) fl MCH 41 H (28-32) pg RDW 17.2 H (13.2-15.2) % Plt Count 50 L (140-440) K/mm3 Meagher % (Auto) 16.0 H (0.0-7.3) % Lymph # (Auto) 1.1 L (1.2-5.4) K/mm3 Meagher # (Auto) 0.9 H (0.0-0.8) K/mm3 Sodium 135 L (137-145) mmol/L Potassium 3.0 L (3.6-5.0) mmol/L Glucose 115 H (75-100) mg/dL Calcium 8.0 L 8.0 L (8.4-10.2) mg/dL Phosphorus 1.80 L (2.5-4.5) mg/dL TIBC (250-450) mcg/dL Transferrin (180-329) mg/dl Total Bilirubin 3.10 H (0.1-1.2) mg/dL AST 94 H (5-40) units/L Alkaline Phosphatase 170 H (35-129) units/L Albumin 1.6 L 1.6 L (3.9-5) g/dL Vitamin B12 (211-911) pg/mL 05/22/21 05/22/21 05/22/21 Range/Units 07:56 07:56 Unknown RBC (3.65-5.03) M/mm3 Hgb (11.8-15.2) gm/dl Hct (35.5-45.6) % MCV (84-94) fl MCH (28-32) pg RDW (13.2-15.2) % Plt Count (140-440) K/mm3 Meagher % (Auto) (0.0-7.3) % Lymph # (Auto) (1.2-5.4) K/mm3 Meagher # (Auto) (0.0-0.8) K/mm3 Sodium (137-145) mmol/L Potassium 3.5 L (3.6-5.0) mmol/L Glucose (75-100) mg/dL Calcium (8.4-10.2) mg/dL Phosphorus (2.5-4.5) mg/dL TIBC 97 L (250-450) mcg/dL Transferrin 89 L (180-329) mg/dl Total Bilirubin (0.1-1.2) mg/dL AST (5-40) units/L Alkaline Phosphatase (35-129) units/L Albumin (3.9-5) g/dL Vitamin B12 2000 H (211-911) pg/mL All other labs normal.
[2021-05-23] MEDS: NIFEdipine XL 60 MG TAB PO SCH (05:56)
[2021-05-23] MEDS: FUROSEMIDE 20 MG TAB PO SCH (05:56)
[2021-05-23 08:12] LABS: Alanine Aminotransferase 35 units/L (7-56); Albumin 1.9 g/dL (3.9-5); Blood Urea Nitrogen 14 mg/dL (9-20); Calcium 8.6 mg/dL (8.4-10.2)
[2021-05-23 08:28] LABS: BUN/Creatinine Ratio 20
[2021-05-23] MEDS: PANTOPRAZOLE 40 MG TAB PO SCH (10:21)
[2021-05-23] MEDS: LOSARTAN 50 MG TAB PO SCH (10:22)
[2021-05-23] MEDS: METOPROLOL SUCCINATE XL 50 MG TAB PO SCH (10:22)
[2021-05-23] MEDS: FOLIC ACID 1 MG TAB PO SCH (10:23)
[2021-05-23] MEDS: SPIRONOLACTONE 50 MG TAB PO SCH (10:23)
[2021-05-23] MEDS: PHYTONADIONE 5 MG/0.5 ML *ORAL LIQUID PO SCH (10:27)
[2021-05-23 11:04] LABS: Hemoglobin 9.2 gm/dl (11.8-15.2); Red Blood Count 2.23 M/mm3 (3.65-5.03)
[2021-05-23 11:05] LABS: Hematocrit 26.4 % (35.5-45.6); Lymphocytes % (Auto) 23.8 % (13.4-35.0); Mean Corpuscular HGB Conc 35 % (32-34); Mean Corpuscular Volume 117 fl (84-94); Platelet Count 54 K/mm3 (140-440); Red Cell Distribution Width 16.7 % (13.2-15.2)
[2021-05-23 11:06] LABS: Basophils % (Auto) 0.7 % (0.0-1.8); Eosinophils # (Auto) 0.1 K/mm3 (0.0-0.4); Eosinophils % (Auto) 1.7 % (0.0-4.3); Lymphocytes # (Auto) 1.6 K/mm3 (1.2-5.4); Monocytes % (Auto) 15.5 % (0.0-7.3)
[2021-05-23] MEDS ORDERED: POTASSIUM CHLORIDE ER 20 MEQ TAB PO NR (13:36)
--- NOTE | 2021-05-23 13:38 | Progress Note ---
Assessment and Plan (1) Acute hepatitis Current Visit: Yes Status: Acute Plan to address problem: Patient is acute hepatitis profile is negative. Apparently secondary to alcohol dependence. Pro time is elevated which is worrisome. Unchanged. Total bilirubin is 3.5. AST is 112. Pro time is 1.8 Albumin is 1.9. Hepatitis secondary to alcohol Patient counseled about alcohol dependence Mental health consult requested and completed. No new medications added. CT scan abdomen just showed gallbladder thickening chronic cholecystitis. Anticipated discharge in a.m. (2) EtOH dependence Current Visit: Yes Status: Chronic Qualifiers: Substance use status: other alcohol-induced disorder Qualified Code(s): F10.288 - Alcohol dependence with other alcohol-induced disorder Plan to address problem: Patient has hepatitis secondary to alcohol Hep A B AND C ruled out COUNSELED ABOUT ETOH DEPENDENCE PATIENT INITIATED ON CIWA PROTOCOL No evidence of withdrawal anticipated discharge in a.m. (3) Hypertension Current Visit: Yes Status: Chronic Qualifiers: Hypertension type: essential hypertension Qualified Code(s): I10 - Essential (primary) hypertension Plan to address problem: Continue antihypertensives and adjust medications (4) Ascites Current Visit: Yes Status: Chronic Qualifiers: Ascites type: due to alcoholic hepatitis Qualified Code(s): K70.11 - Alcoholic hepatitis with ascites Plan to address problem: CT abdomen with IV contrast requested For better delineation and to rule out cholecystitis (5) Cholecystitis Current Visit: Yes Status: Chronic Plan to address problem: Unlikely (6) Severe malnutrition Current Visit: Yes Status: Chronic Plan to address problem: Albumin is 1.9 Dietitian consult requested (7) Hypokalemia Current Visit: Yes Status: Acute Plan to address problem: Supplemented (8) Anemia Current Visit: Yes Status: Chronic Qualifiers: Anemia type: unspecified type Qualified Code(s): D64.9 - Anemia, unspecified Plan to address problem: Anemia work-up Probably nutritional because of alcohol dependence (9) DVT prophylaxis Current Visit: Yes Status: Acute Plan to address problem: On SCDs and GI prophylaxis Subjective Date of service: 05/23/21 Principal diagnosis: Acute liver failure Interval history: Patient 60-year-old male presented with lethargy and confusion altered mental status. Found to have acute hepatic failure. Work-up at this time has been essentially negative for acute infectious hepatitis. Appears to be secondary to alcohol. The acute hepatic panel was negative. Patient had albumin of 1.9. Also had positive urine drug screen for cocaine. Ultrasound significant for chronic cholecystitis. Follow-up liver enzymes appear to be about the same. No drastic changes. Patient states he feels good no problems. States he does not want to drink again at this time. Denies depression denies chest pain fever chills. Objective - Constitutional Vitals: Vital Signs - 12hr 05/23/21 05/23/21 05/23/21 03:51 10:21 10:22 Temperature 97.8 F 97.7 F Pulse Rate 85 78 81 Respiratory 20 20 Rate Blood Pressure 113/56 115/70 115/70 O2 Sat by Pulse 100 97 97 Oximetry General appearance: Present: no acute distress, well-nourished - EENT Eyes: PERRL, EOM intact ENT: hearing intact, clear oral mucosa Ears: bilateral: normal - Neck Neck: supple, normal ROM - Respiratory Respiratory effort: normal Respiratory: bilateral: CTA - Breasts Breasts: normal - Cardiovascular Rhythm: regular Heart Sounds: Present: S1 & S2. Absent: gallop, rub Extremities: pulses intact, No edema, normal color, Full ROM - Gastrointestinal General gastrointestinal: Present: soft, non-tender, non-distended, normal bowel sounds - Genitourinary Male genitourinary: normal - Integumentary Integumentary: clear, warm, dry - Musculoskeletal Musculoskeletal: 1, strength equal bilaterally - Neurologic Neurologic: moves all extremities - Psychiatric Psychiatric: memory intact, appropriate mood/affect, intact judgment & insight - Labs CBC & Chem 7: 05/23/21 07:21 05/23/21 07:21 Labs: Abnormal lab results 05/22/21 05/22/21 05/23/21 Range/Units 07:56 07:56 07:21 RBC 2.23 L (3.65-5.03) M/mm3 Hgb 9.2 L (11.8-15.2) gm/dl Hct 26.4 L (35.5-45.6) % MCV 117 H (84-94) fl MCH 41 H (28-32) pg MCHC 35 H (32-34) % RDW 16.7 H (13.2-15.2) % Plt Count 54 L (140-440) K/mm3 [place] % (Auto) 15.5 H (0.0-7.3) % [place] # (Auto) 1.0 H (0.0-0.8) K/mm3 Potassium (3.6-5.0) mmol/L Creatinine (0.8-1.3) mg/dL TIBC 97 L (250-450) mcg/dL Total Bilirubin (0.1-1.2) mg/dL AST (5-40) units/L Alkaline Phosphatase (35-129) units/L Albumin (3.9-5) g/dL Vitamin B12 2000 H (211-911) pg/mL 05/23/21 Range/Units 07:21 RBC (3.65-5.03) M/mm3 Hgb (11.8-15.2) gm/dl Hct (35.5-45.6) % MCV (84-94) fl MCH (28-32) pg MCHC (32-34) % RDW (13.2-15.2) % Plt Count (140-440) K/mm3 [place] % (Auto) (0.0-7.3) % [place] # (Auto) (0.0-0.8) K/mm3 Potassium 3.3 L (3.6-5.0) mmol/L Creatinine 0.7 L (0.8-1.3) mg/dL TIBC (250-450) mcg/dL Total Bilirubin 3.50 H (0.1-1.2) mg/dL AST 111 H (5-40) units/L Alkaline Phosphatase 173 H (35-129) units/L Albumin 1.9 L (3.9-5) g/dL Vitamin B12 (211-911) pg/mL
--- NOTE | 2021-05-23 16:18 | Gastroenterology Progress Note ---
Assessment and Plan Findings consistent with alcohol related cirrhosis with mild ascites on imaging Plan: Reiterated alcohol cessation Please discharge patient on Lasix 20 and Aldactone 50 daily for the ascites as well as patient will continue low-sodium diet He will follow-up with me as an outpatient Etiology of the nodules on his skin are unclear do not appear to be liver related Bruising likely liver related, reviewed with him vitamin K and alcohol cessation to help decrease amount of bruising Regarding long-term maintenance for patient's cirrhosis: Hepatocellular carcinoma -none visualized on CAT scan will require imaging every 6 months Esophageal varices -patient will be set up with an outpatient EGD when he follows up with me in clinic to screen for varices Ascites -as above Hepatic encephalopathy -none clinically, avoid alcohol avoid opiates avoid benzodiazepines Elevated INR -vitamin K, suspect some deficiency due to his alcohol Avoid hepatotoxins From GI perspective patient may be discharged with outpatient follow-up with me - Patient Problems (1) Cirrhosis with alcoholism Current Visit: Yes Status: Acute (2) Ascites Current Visit: Yes Status: Chronic Qualifiers: Ascites type: due to alcoholic hepatitis Qualified Code(s): K70.11 - Alcoholic hepatitis with ascites Subjective Date of service: 05/23/21 Principal diagnosis: Acute liver failure Interval history: Patient's is at bedside He says he started feel little bit better with mild decrease in upper extremity edema and lower extremity edema He is concerned about the small nodules that are present on his chest and arms He says he is thinking clearer now and he will not start drinking alcohol again Objective - Constitutional Vitals: Temp Pulse Resp BP Pulse Ox 97.7 F 81 20 115/70 97 05/23/21 10:21 05/23/21 10:22 05/23/21 10:21 05/23/21 10:22 05/23/21 10:22 General appearance: no acute distress - EENT Eyes: EOM intact, scleral icterus - Neck Neck: supple - Respiratory Respiratory effort: normal - Gastrointestinal General gastrointestinal: Present: soft, other - Integumentary Integumentary: Present: dry (Multiple small nodules that are hard and nontender on chest arm etc.) - Neurologic Neurological: other (No asterixis on exam) - Labs CBC & Chem 7: 05/23/21 07:21 05/23/21 07:21 Labs: Laboratory Results - last 24 hr 05/22/21 05/22/2105/23/21 07:56 20:03 07:21 WBC 6.5 RBC 2.23 L Hgb 9.2 L Hct 26.4 L MCV 117 H MCH 41 H MCHC 35 H RDW 16.7 H Plt Count 54 L Lymph % (Auto) 23.8 [place] % (Auto) 15.5 H Eos % (Auto) 1.7 Baso % (Auto) 0.7 Lymph # (Auto) 1.6 [place] # (Auto) 1.0 H Eos # (Auto) 0.1 Baso # (Auto) 0.0 Seg Neutrophils % 58.3 Seg Neutrophils # 3.8 Sodium Potassium Chloride Carbon Dioxide Anion Gap BUN Creatinine Estimated GFR BUN/Creatinine Ratio Glucose Calcium Phosphorus 2.70 D TIBC 97 L % Saturation 94.85 Total Bilirubin AST ALT Alkaline Phosphatase Total Protein Albumin Albumin/Globulin Ratio 05/23/21 07:21 WBC RBC Hgb Hct MCV MCH MCHC RDW Plt Count Lymph % (Auto) [place] % (Auto) Eos % (Auto) Baso % (Auto) Lymph # (Auto) [place] # (Auto) Eos # (Auto) Baso # (Auto) Seg Neutrophils % Seg Neutrophils # Sodium 139 Potassium 3.3 L Chloride 104.8 Carbon Dioxide 25 Anion Gap 13 BUN 14 Creatinine 0.7 L Estimated GFR > 60 BUN/Creatinine Ratio 20 Glucose 92 Calcium 8.6 Phosphorus TIBC % Saturation Total Bilirubin 3.50 H AST 111 H ALT 35 Alkaline Phosphatase 173 H Total Protein 8.2 Albumin 1.9 L Albumin/Globulin Ratio 0.3
[2021-05-24 05:24] VITALS: BP 112/64
[2021-05-24] MEDS: FUROSEMIDE 20 MG TAB PO SCH (05:26)
[2021-05-24] MEDS: NIFEdipine XL 60 MG TAB PO SCH (05:26)
--- NOTE | 2021-05-24 08:36 | Gastroenterology Progress Note ---
Assessment and Plan Findings consistent with alcohol related cirrhosis with mild ascites on imaging, ok to discharge from GI perspective LUE Edema likely related to his IV in that arm, but recommend considering US r/o DVT Plan: Reiterated alcohol cessation Please discharge patient on Lasix 20 and Aldactone 50 daily for the ascites as well as patient will continue low-sodium diet He will follow-up with me as an outpatient Etiology of the nodules on his skin are unclear do not appear to be liver related Bruising likely liver related, reviewed with him vitamin K and alcohol cessation to help decrease amount of bruising Regarding long-term maintenance for patient's cirrhosis: Hepatocellular carcinoma -none visualized on CAT scan will require imaging every 6 months Esophageal varices -patient will be set up with an outpatient EGD when he follows up with me in clinic to screen for varices Ascites -as above Hepatic encephalopathy -none clinically, avoid alcohol avoid opiates avoid benzodiazepines Elevated INR -vitamin K, suspect some deficiency due to his alcohol Avoid hepatotoxins From GI perspective patient may be discharged with outpatient follow-up with me - Patient Problems (1) Cirrhosis with alcoholism Current Visit: Yes Status: Acute (2) Ascites Current Visit: Yes Status: Chronic Qualifiers: Ascites type: due to alcoholic hepatitis Qualified Code(s): K70.11 - Alcoholic hepatitis with ascites Subjective Date of service: 05/24/21 Principal diagnosis: Cirrhosis Interval history: Patient asking if he can go home today Left upper extremity more swollen than right upper extremity otherwise he reports edema continues to decrease He reiterates he will not drink anymore alcohol Objective - Constitutional Vitals: Temp Pulse Resp BP Pulse Ox 98.8 F 80 18 112/64 97 05/24/21 03:35 05/24/21 03:35 05/24/21 03:35 05/24/21 03:35 05/24/21 03:35 General appearance: no acute distress - EENT Eyes: EOM intact - Neck Neck: supple - Respiratory Respiratory effort: normal - Extremities Extremity abnormal: other (LUE edema > RUQ) - Gastrointestinal General gastrointestinal: Present: soft - Labs CBC & Chem 7: 05/23/21 07:21 05/23/21 07:21 Labs: Laboratory Results - last 24 hr 05/23/21 07:21 WBC 6.5 RBC 2.23 L Hgb 9.2 L Hct 26.4 L MCV 117 H MCH 41 H MCHC 35 H RDW 16.7 H Plt Count 54 L Lymph % (Auto) 23.8 [place] % (Auto) 15.5 H Eos % (Auto) 1.7 Baso % (Auto) 0.7 Lymph # (Auto) 1.6 [place] # (Auto) 1.0 H Eos # (Auto) 0.1 Baso # (Auto) 0.0 Seg Neutrophils % 58.3 Seg Neutrophils # 3.8
[2021-05-24 08:50] LABS: Calcium 8.3 mg/dL (8.4-10.2)
[2021-05-24] MEDS: LOSARTAN 50 MG TAB PO SCH (10:53)
[2021-05-24] MEDS: METOPROLOL SUCCINATE XL 50 MG TAB PO SCH (10:53)
[2021-05-24] MEDS: PHYTONADIONE 5 MG/0.5 ML *ORAL LIQUID PO SCH (10:53)
[2021-05-24] MEDS: FOLIC ACID 1 MG TAB PO SCH (10:54)
[2021-05-24] MEDS: SPIRONOLACTONE 50 MG TAB PO SCH (10:54)
[2021-05-24] MEDS: PANTOPRAZOLE 40 MG TAB PO SCH (10:54)
--- NOTE | 2021-05-24 12:07 | Discharge Summary ---
Providers - Providers Date of Admission: 05/21/21 19:19 Date of discharge: 05/24/21 Attending physician: ALEX LEE 05/21/21 23:56 Consult to Physician [CONS] Routine Comment: Consulting Provider: JUWAN KESSLER Physician Instructions: Reason For Exam: Acute Hepatitis 05/22/21 06:36 Consult to Dietitian/Nutrition [CONS] Routine Physician Instructions: Reason For Exam: Reason for Consult: Pt needs oral supplement Consult to Mental Health [CONS] Routine Reason For Exam: EtOH dependence Primary care physician: JOSEFA COLE Hospitalization Condition: Fair Pertinent studies: CT scan of head moderate volume loss microvascular ischemia Abdominal ultrasound no stones chronic cholecystitis CT scan abdomen pelvis liver cirrhosis no focal lesions. Hospital course: Patient 60-year-old male presented with lethargy and confusion altered mental status. Found to have acute hepatic failure. Patient is admitted and work-up was negative for acute infectious hepatitis. Encephalopathy was secondary to alcohol. CT scan consistent with alcoholic encephalopathy as well as CT scan abdomen showed liver cirrhosis. The acute hepatic panel was negative. Patient had albumin of 1.9. Also had positive urine drug screen for cocaine. Ultrasound significant for chronic cholecystitis. Follow-up liver enzymes appear to be about the same. No drastic changes. Patient educated he should refrain from drinking. Also refrain from doing drugs such as cocaine which was positive in his urine and consistent throughout his lifestyle. Patient had left upper quadrant ultrasound ruled out for DVT for swelling. Patient will follow up with GI as outpatient for treatment of liver cirrhosis. Patient has 2-week follow-up. Patient will be discharged on Lasix 20 mg once daily as well as Aldactone 50 mg once daily for ascites.. Disposition: TO HOME OR SELFCARE Final Discharge Diagnosis (Prints w/discharge instructions): Acute metabolic encephalopathy liver failure - Discharge Diagnoses (1) Acute hepatitis Status: Acute (2) Cirrhosis with alcoholism Status: Acute (3) Hepatic encephalopathy Status: Acute (4) Anemia Status: Chronic Qualifiers: Anemia type: unspecified type Qualified Code(s): D64.9 - Anemia, unspecified (5) EtOH dependence Status: Chronic Qualifiers: Substance use status: other alcohol-induced disorder Qualified Code(s): F10.288 - Alcohol dependence with other alcohol-induced disorder (6) Severe malnutrition Status: Chronic (7) Thrombocytopenia Status: Chronic Core Measure Documentation - Palliative Care Palliative Care/ Comfort Measures: Not Applicable - Core Measures Any of the following diagnoses?: none Exam - Constitutional Vitals: Temp Pulse Resp BP Pulse Ox 98.8 F 80 18 112/64 97 05/24/21 03:35 05/24/21 03:35 05/24/21 03:35 05/24/21 03:35 05/24/21 03:35 General appearance: Present: no acute distress, well-nourished - EENT Eyes: Present: PERRL ENT: hearing intact, clear oral mucosa - Neck Neck: Present: supple, normal ROM - Respiratory Respiratory effort: normal Respiratory: bilateral: CTA - Cardiovascular Heart Sounds: Present: S1 & S2. Absent: rub, click - Extremities Extremities: pulses symmetrical, No edema Peripheral Pulses: within normal limits - Abdominal General gastrointestinal: Present: soft, non-tender, non-distended, normal bowel sounds Male genitourinary: Present: normal - Integumentary Integumentary: Present: clear, warm, dry - Musculoskeletal Musculoskeletal: gait normal, strength equal bilaterally - Psychiatric Psychiatric: appropriate mood/affect, intact judgment & insight - Neurologic Neurologic: CNII-XII intact, moves all extremities Plan Activity: fall precautions Weight Bearing Status: Full Weight Bearing Diet: other (Alcoholics Anonymous Narcotics Anonymous avoid cocaine and alcohol.) Follow up with: JOSEFA COLE MD [Primary Care Provider] - 3-5 Days Prescriptions: Spironolactone [Aldactone] 50 mg PO QDAY #30 tablet Losartan [Cozaar] 50 mg PO QDAY #30 tablet Folic Acid [Folvite] 1 mg PO QDAY #30 tablet Furosemide [Lasix TAB] 20 mg PO DAILY@0600 #30 tablet Metoprolol Xl [Metoprolol SUCCINATE ER TAB] 50 mg PO QDAY #30 tablet NIFEdipine XL [Procardia Xl] 60 mg PO QDAY #30 tablet Pantoprazole [Protonix TAB] 40 mg PO QDAY #30 tablet
--- NOTE | 2021-05-24 13:30 | Vascular Lab Report ---
DUPLEX DOPPLER UPPER EXTREMITY VENOUS, LEFT INDICATION / CLINICAL INFORMATION: jeannine ext swelling. TECHNIQUE: Duplex doppler imaging was performed through the veins of the left upper extremity using venous compr ession and other maneuvers. COMPARISON: None available. FINDINGS: LEFT INTERNAL JUGULAR VEIN: Negative. LEFT SUBCLAVIAN VEIN: Negative. LEFT AXILLARY VEIN: Negative. LEFT BRACHIAL VEIN: Negative. LEFT FOREARM VEINS: Negative. LEFT BASILIC VEIN (SUPERFICIAL): Negative. ADDITIONAL FINDINGS: None. IMPRESSION: 1. No sonographic evidence for DVT. Signer Name: Vamsi Childers MD Signed: 05/24/2021 1:26 PM Workstation Name: [id number]
== END 2021-05-24 17:15 | disposition home or self-care (01) | DRG 441 ==
LOC: ED 13:33 → 3A 19:19
PROVIDERS: ADMIT Internal Medicine; ATTEND Internal Medicine
DX: K72.90 Hepatic failure, unspecified without coma (principal); E43 Unspecified severe protein-calorie malnutrition; G93.41 Metabolic encephalopathy; F10.288 Alcohol dependence with other alcohol-induced disorder; K70.31 Alcoholic cirrhosis of liver with ascites; K70.11 Alcoholic hepatitis with ascites; D64.9 Anemia, unspecified; D69.6 Thrombocytopenia, unspecified; K21.9 Gastro-esophageal reflux disease without esophagitis; E87.6 Hypokalemia; K81.1 Chronic cholecystitis; I11.0 Hypertensive heart disease with heart failure; I50.9 Heart failure, unspecified; Z68.34 Body mass index [BMI] 34.0-34.9, adult; Z88.8 Allergy status to other drugs, medicaments and biological substances
CPT/HCPCS: 36415; 70450; 74177; 76705; 80048; 80053; 80074; 80307; 80320; 81001; 82040; 82140; 82150; 82247; 82248; 82310; 82607; 82747; 83036; 83550; 83690; 84100; 84132; 85025; 85610; 85730; 96374; 96375; G0378; G0480; J0360; J3430; J7030; J7050; Q9967

== ENCOUNTER 2021-10-10 22:47 | Inpatient (IN) | payer MEDICARE ==
[~2021-10-10 22:47] MED LIST: EPINEPHrine 1 MG/10 ML SYRINGE ONE; EPINEPHrine 30 MG/30 ML INJ IV ONE; SODIUM BICARB 8.4% 50 MEQ/50 ML SYRINGE IV ONE
[2021-10-10] MEDS ORDERED: SODIUM CHLORIDE 0.9% 1000 ML 1,000 ML IV ONE (23:03)
--- NOTE | 2021-10-10 23:21 | Consultation ---
History of Present Illness History of present illness: [facility] Consult Note # Demographics Consult Type: Acute Stroke Level 2 (4.5-24 hrs) Patient Location: Emergency Room First Name: James Last Name: Joshua Date of : 1955 Age: 66 Gender: Male Facility: [facility] Time of Initial Page ( Time): 10/10/2021, 23:05 Time of Return Call ( Time): 10/10/2021, 23:06 # HPI History: 66 year-old male presents with dysarthria and generalized weakness. Symptoms began around 930 AM. He has chronic right leg weakness from prior hip surgery. # Scores Time of exam and NIHSS (): 10/10/2021, 23:10 Level of Consciousness 1a: [0] = Alert; keenly responsive LOC Questions 1b: [0] = Answers both questions correctly LOC Commands 1c: [0] = Performs both tasks correctly Best Gaze 2: [0] = Normal Visual 3: [0] = No visual loss Facial Palsy 4: [0] = Normal symmetrical movements Motor Arm Left 5a: [0] = No drift Motor Arm Right 5b: [0] = No drift Motor Leg Left 6a: [0] = No drift Motor Leg Right 6b: [2] = Some effort against gravity Limb Ataxia 7: [0] = Absent Sensory 8: [0] = Normal Best Language 9: [0] = No aphasia Dysarthria 10: [1] = [id number] dysarthria Extinction and Inattention 11: [0] = No abnormality NIHSS Total: 3 # Exam Vitals: vital signs reviewed # H-FH-SH Past Medical History: hypertension # Assessment Impression: Dysarthria and generalized weakness - unclear etiology, cannot exclude stroke # Plan Thrombolytic/Intervention: NOT IV Thrombolysis or IA Intervention candidate Thrombolytic Exclusion: > 4.5 hours Intraarterial Exclusion: CTA pending Labs: hemoglobin A1c lipid panel Imaging: (urgency: STAT): CT Head without contrast CT Angiogram Head and CT Angiogram Neck AND call back with results if abnormal Imaging: (urgency: routine): If symptoms persist without clear cause, consider brain MRI. Other: permissive hypertension telemetry monitoring would not pursue stroke work-up if MRI is negative I have discussed my recommendations with the referring provider Disposition: observation Medications and Allergies Allergies Allergy/AdvReac Type Severity Reaction Status Date / Time lisinopril Allergy Severe EVERYTHING Verified 10/10/21 22:59 SWELLS Home Medications Medication Instructions Recorded Confirmed Last Taken Type Aspirin EC [Halfprin EC] 81 mg PO QDAY #30 tablet 04/01/19 05/22/21 05/21/21 09:00 Rx Multivitamin [Multiple Vitamins] 1 each PO DAILY #30 tablet 04/01/19 05/22/21 05/21/21 09:00 Rx Spironolactone [Aldactone] 25 mg PO QDAY #30 tablet 04/01/19 05/22/21 05/21/21 09:00 Rx Folic Acid [Folvite] 1 mg PO QDAY #30 tablet 05/24/21 Unknown Rx Furosemide [Lasix TAB] 20 mg PO DAILY@0600 #30 tablet 05/24/21 Unknown Rx Losartan [Cozaar] 50 mg PO QDAY #30 tablet 05/24/21 Unknown Rx Metoprolol Xl [Metoprolol 50 mg PO QDAY #30 tablet 05/24/21 Unknown Rx SUCCINATE ER TAB] NIFEdipine XL [Procardia Xl] 60 mg PO QDAY #30 tablet 05/24/21 Unknown Rx Pantoprazole [Protonix TAB] 40 mg PO QDAY #30 tablet 05/24/21 Unknown Rx Spironolactone [Aldactone] 50 mg PO QDAY #30 tablet 05/24/21 Unknown Rx Active Meds: Active Medications Sodium Chloride (Nacl 0.9% 1000 Ml) 1,000 mls @ 999 mls/hr IV BOLUS ONE Stop: 10/11/21 00:03 Physical Examination - Vital Signs Vital Signs: Vital Signs Temp Pulse Resp BP Pulse Ox 98.6 F 106 H 14 107/72 95 10/10/21 23:00 10/10/21 23:00 10/10/21 23:00 10/10/21 23:00 10/10/21 23:00 Results - Laboratory Findings Abnormal Lab Findings: Abnormal Labs 10/10/21 23:02 POC Glucose 123 H
--- NOTE | 2021-10-10 23:53 | Cat Scan Report ---
CT head without contrast INDICATION : CODE STROKE PROTOCOL!!! Stroke-Like symptoms. TECHNIQUE: Axial imaging performed from the skull apex through the skull base without the use of con trast. All CT scans at this location are performed using CT dose reduction for ALARA by means of aut omated exposure control. COMPARISON: 05/21/2021 FINDINGS: Parenchyma: No mass, stroke or hemorrhage. Low density is seen throughout the superior sagittal sinus . Ventricles: Ventricles are normal in size and appear symmetric. Soft tissues: Soft tissues including the orbits appear normal. Bones: No acute osseous abnormality. Sinuses: Sinuses and mastoid air cells are clear. IMPRESSION: 1. No mass, stroke or hemorrhage. 2. Possible superior sagittal sinus thrombosis. CODE STROKE: Time of Communication (DOGGER/CDT): 10:46 PM Licensed Practitioner Receiving Report: Dr. Gallagher Signer Name: Haim Jimenes MD Signed: 10/10/2021 11:48 PM Workstation Name: [id number]
[2021-10-10 23:59] LABS: Basophils % (Auto) 0.5 % (0.0-1.8); Lymphocytes # (Auto) 0.8 K/mm3 (1.2-5.4); Lymphocytes % (Auto) 9.2 % (13.4-35.0); Mean Corpuscular HGB Conc 31 % (32-34); Monocytes # (Auto) 0.6 K/mm3 (0.0-0.8); Monocytes % (Auto) 7.4 % (0.0-7.3); Red Blood Count 1.25 M/mm3 (3.65-5.03)
[2021-10-11 00:01] LABS: Mean Corpuscular Volume 129 fl (84-94); Platelet Count 36 K/mm3 (140-440); Red Cell Distribution Width 22.4 % (13.2-15.2)
[2021-10-11 00:04] LABS: Hematocrit 16.2 % (35.5-45.6)
--- NOTE | 2021-10-11 00:09 | XRay Report ---
CHEST 1 VIEW 10/10/2021 11:28 PM INDICATION / CLINICAL INFORMATION: dyspnea. COMPARISON: 01/30/2021. FINDINGS: SUPPORT DEVICES: None. HEART / MEDIASTINUM: No significant abnormality. LUNGS / PLEURA: Chronic volume loss remains at the right chest with associated pleural thickening and apical scarring. The appearance is mildly worsened. The left chest remains clear. No pneumothorax. ADDITIONAL FINDINGS: No significant additional findings. IMPRESSION: 1. Worsening changes right chest is likely in part due to diminished lung volumes/volume loss. 2. Left lung clear. Signer Name: Haim Jimenes MD Signed: 10/11/2021 12:05 AM Workstation Name: [id number]
[2021-10-11 00:18] LABS: Creatine Kinase MB 2.7 ng/mL (0.0-4.0)
[2021-10-11 00:20] LABS: Albumin 1.6 g/dL (3.9-5); Calcium 7.6 mg/dL (8.4-10.2)
--- NOTE | 2021-10-11 00:22 | Cat Scan Report ---
CTA NECK WITH CONTRAST 10/10/2021 INDICATION / CLINICAL INFORMATION: Stroke like symptoms. No additional information. COMPARISON: None. TECHNIQUE: Routine CTA of the neck is performed. 3-D/MIP reformats were postprocessed. Percentage st enosis is determined by direct quantitative measurements of diseased internal carotid artery diameter compared with normal distal internal carotid artery reference segments or by criteria similar to BRITTNEY CET where applicable. All CT scans at this location are performed using CT dose reduction for ALARA b y means of automated exposure control. CONTRAST: 100 ml of Omnipaque 350 FINDINGS: Carotid bifurcations: No evidence of carotid bifurcation stenosis Carotid arteries: No significant abnormality. Cervical vertebral arteries: No significant abnormality. Aortic arch: No significant abnormality. Chronic scarring or atelectasis of right pulmonary apex IMPRESSION: No significant abnormality. Signer Name: Richie Pabon MD Signed: 10/11/2021 12:18 AM Workstation Name: [id number]
--- NOTE | 2021-10-11 00:25 | Cat Scan Report ---
CTA HEAD WITH CONTRAST 10/10/2021 HISTORY: Stroke like symptoms. No additional information. COMPARISON: None. TECHNIQUE: All CT scans at this location are performed using CT dose reduction for ALARA by means of automated exposure control.. 3-D/MIP reformats postprocessed. Percentage stenosis is determined by d irect quantitative measurements of diseased internal carotid artery diameter compared with normal dis lenny internal carotid artery reference segments or by criteria similar to NASCET where applicable. CONTRAST: 100 ml of Omnipaque 350 FINDINGS: CTA HEAD: Intracranial vertebral arteries: No significant abnormality. Basilar artery: No significant abnormality. Posterior cerebral arteries: No significant abnormality. Intracranial internal carotid arteries: No significant abnormality. Anterior cerebral arteries: No significant abnormality. Middle cerebral arteries: No significant abnormality. Dural venous sinuses:Not optimally opacified. No significant abnormality. Additional findings: None. IMPRESSION: 1. No significant abnormality. Signer Name: Richie Pabon MD Signed: 10/11/2021 12:20 AM Workstation Name: [id number]
[2021-10-11 00:26] LABS: Thrombin Time 34.6 Sec. (15.1-19.6)
[2021-10-11] MEDS ORDERED: SODIUM CHLORIDE 0.9% 500 ML 500 ML IV ONE ×6 (00:28→06:39)
[2021-10-11 00:30] LABS: Partial Thromboplastin Time 62.2 Sec. (24.2-36.6)
--- NOTE | 2021-10-11 00:47 | Emergency Department Report ---
ED General Adult HPI - General Chief complaint: Weakness Stated complaint: GENERALIZED WEAKNESS Time Seen by Provider: 10/10/21 23:02 Source: EMS Mode of arrival: Stretcher Limitations: No Limitations - History of Present Illness Initial comments: Patient is a 66-year-old F Romanian male with a past medical history of alcoholic cirrhosis with hepatic encephalopathy cocaine abuse hypertension who is presenting with some altered mental status. Patient states he feels as though his speech is off. Also states has been dizzy all day. Patient complaining of some mild shortness of breath but no cough cold or congestion fevers or chills. Denies nausea vomiting or diarrhea. Patient states he has not been drinking Severity scale (0 -10): 5 - Related Data Previous Rx's Medication Instructions Recorded Last Taken Type Aspirin EC [Halfprin EC] 81 mg PO QDAY #30 tablet 04/01/19 05/21/21 09:00 Rx Multivitamin [Multiple Vitamins] 1 each PO DAILY #30 tablet 04/01/19 05/21/21 09:00 Rx Spironolactone [Aldactone] 25 mg PO QDAY #30 tablet 04/01/19 05/21/21 09:00 Rx Folic Acid [Folvite] 1 mg PO QDAY #30 tablet 05/24/21 Unknown Rx Furosemide [Lasix TAB] 20 mg PO DAILY@0600 #30 tablet 05/24/21 Unknown Rx Losartan [Cozaar] 50 mg PO QDAY #30 tablet 05/24/21 Unknown Rx Metoprolol Xl [Metoprolol 50 mg PO QDAY #30 tablet 05/24/21 Unknown Rx SUCCINATE ER TAB] NIFEdipine XL [Procardia Xl] 60 mg PO QDAY #30 tablet 05/24/21 Unknown Rx Pantoprazole [Protonix TAB] 40 mg PO QDAY #30 tablet 05/24/21 Unknown Rx Spironolactone [Aldactone] 50 mg PO QDAY #30 tablet 05/24/21 Unknown Rx Allergies Allergy/AdvReac Type Severity Reaction Status Date / Time lisinopril Allergy Severe EVERYTHING Verified 10/10/21 22:59 [facility] Review of Systems ROS: Stated complaint: GENERALIZED WEAKNESS Other details as noted in HPI Comment: All other systems reviewed and negative ED Past Medical Hx - Past Medical History Hx Hypertension: Yes Hx Heart Attack/AMI: No Hx Congestive Heart Failure: Yes Hx GERD: Yes Hx Liver Disease: Yes Additional medical history: high cholesterol - Surgical History Additional Surgical History: rotator cuff, hip - Social History Smoking Status: Current Every Day Smoker - Medications Home Medications: Home Medications Medication Instructions Recorded Confirmed Last Taken Type Aspirin EC [Halfprin EC] 81 mg PO QDAY #30 tablet 04/01/19 05/22/21 05/21/21 09:00 Rx Multivitamin [Multiple Vitamins] 1 each PO DAILY #30 tablet 04/01/19 05/22/21 05/21/21 09:00 Rx Spironolactone [Aldactone] 25 mg PO QDAY #30 tablet 04/01/19 05/22/21 05/21/21 09:00 Rx Folic Acid [Folvite] 1 mg PO QDAY #30 tablet 05/24/21 Unknown Rx Furosemide [Lasix TAB] 20 mg PO DAILY@0600 #30 tablet 05/24/21 Unknown Rx Losartan [Cozaar] 50 mg PO QDAY #30 tablet 05/24/21 Unknown Rx Metoprolol Xl [Metoprolol 50 mg PO QDAY #30 tablet 05/24/21 Unknown Rx SUCCINATE ER TAB] NIFEdipine XL [Procardia Xl] 60 mg PO QDAY #30 tablet 05/24/21 Unknown Rx Pantoprazole [Protonix TAB] 40 mg PO QDAY #30 tablet 05/24/21 Unknown Rx Spironolactone [Aldactone] 50 mg PO QDAY #30 tablet 05/24/21 Unknown Rx ED Physical Exam - General Limitations: No Limitations General appearance: alert, in no apparent distress - Head Head exam: Present: atraumatic, normocephalic - Eye Eye exam: Present: scleral icterus - ENT ENT exam: Present: mucous membranes moist - Neck Neck exam: Present: normal inspection - Respiratory Respiratory exam: Present: normal lung sounds bilaterally. Absent: respiratory distress, wheezes, rales, rhonchi - Cardiovascular Cardiovascular Exam: Present: normal rhythm, tachycardia. Absent: systolic murmur, diastolic murmur, rubs, gallop - GI/Abdominal GI/Abdominal exam: Present: soft, normal bowel sounds. Absent: distended, tenderness, guarding, rebound - Rectal Rectal exam: Present: deferred, heme (+) stool - Extremities Exam Extremities exam: Present: normal inspection - Back Exam Back exam: Present: normal inspection - Neurological Exam Neurological exam: Present: alert, oriented X3, other (slurred speech). Absent: motor sensory deficit - Psychiatric Psychiatric exam: Present: normal affect, normal mood - Skin Skin exam: Present: warm, dry, intact, normal color. Absent: rash - Other Other exam information: Time of exam and NIHSS (Eastern Time): 10/10/2021, 23:10 Level of Consciousness 1a: [0] = Alert; keenly responsive LOC Questions 1b: [0] = Answers both questions correctly LOC Commands 1c: [0] = Performs both tasks correctly Best Gaze 2: [0] = Normal Visual 3: [0] = No visual loss Facial Palsy 4: [0] = Normal symmetrical movements Motor Arm Left 5a: [0] = No drift Motor Arm Right 5b: [0] = No drift Motor Leg Left 6a: [0] = No drift Motor Leg Right 6b: [2] = Some effort against gravity Limb Ataxia 7: [0] = Absent Sensory 8: [0] = Normal Best Language 9: [0] = No aphasia Dysarthria 10: [1] = Cryi-zu-vhtcrayn dysarthria Extinction and Inattention 11: [0] = No abnormality NIHSS Total: 3 ED Course Vital Signs 10/10/21 10/10/21 10/10/21 23:00 23:03 23:05 Temperature 98.6 F 95.8 F L Pulse Rate 106 H 109 H 109 H Respiratory 14 28 H 37 H Rate Blood Pressure Blood Pressure 107/72 132/69 [Left] O2 Sat by Pulse 95 92 94 Oximetry 10/10/21 23:35 Temperature Pulse Rate 105 H Respiratory 23 Rate Blood Pressure 132/69 Blood Pressure [Left] O2 Sat by Pulse Oximetry ED Medical Decision Making - Lab Data Result diagrams: 10/10/21 23:33 10/10/21 23:33 Lab Results 10/10/21 10/10/21 10/10/21 Range/Units 23:02 23:33 23:33 WBC 8.5 (4.5-11.0) K/mm3 RBC 1.25 L (3.65-5.03) M/mm3 Hgb 5.0 L* (11.8-15.2) gm/dl Hct 16.2 L* (35.5-45.6) % MCV 129 H (84-94) fl MCH 40 H (28-32) pg MCHC 31 L (32-34) % RDW 22.4 H (13.2-15.2) % Plt Count 36 L (140-440) K/mm3 Lymph % (Auto) 9.2 L (13.4-35.0) % [place] % (Auto) 7.4 H (0.0-7.3) % Eos % (Auto) 0.0 (0.0-4.3) % Baso % (Auto) 0.5 (0.0-1.8) % Lymph # (Auto) 0.8 L (1.2-5.4) K/mm3 [place] # (Auto) 0.6 (0.0-0.8) K/mm3 Eos # (Auto) 0.0 (0.0-0.4) K/mm3 Baso # (Auto) 0.0 (0.0-0.1) K/mm3 Seg Neutrophils % 82.9 H (40.0-70.0) % Seg Neutrophils # 7.1 (1.8-7.7) K/mm3 PT 30.9 H (12.2-14.9) Sec. INR 2.70 H (0.87-1.13) APTT 62.2 H* (24.2-36.6) Sec. Thrombin Time 34.6 H (15.1-19.6) Sec. D-Dimer > 51165 H (0-234) ng/mlDDU Sodium (137-145) mmol/L Potassium (3.6-5.0) mmol/L Chloride (98-107) mmol/L Carbon Dioxide (22-30) mmol/L Anion Gap mmol/L BUN (9-20) mg/dL Creatinine (0.8-1.3) mg/dL Estimated GFR ml/min BUN/Creatinine Ratio % Glucose (75-100) mg/dL POC Glucose 123 H (70-105) mg/dL Calcium (8.4-10.2) mg/dL Total Bilirubin (0.1-1.2) mg/dL AST (5-40) units/L ALT (7-56) units/L Alkaline Phosphatase (35-129) units/L Ammonia (25-60) umol/L Total Creatine Kinase (55-170) units/L CK-MB (CK-2) (0.0-4.0) ng/mL CK-MB (CK-2) Rel Index (0-4) Troponin T (0.00-0.029) ng/mL Total Protein (6.3-8.2) g/dL Albumin (3.9-5) g/dL Albumin/Globulin Ratio % Plasma/Serum Alcohol (0-0.07) % Blood Type Crossmatch 10/10/21 10/10/21 10/10/21 Range/Units 23:33 23:33 23:33 WBC (4.5-11.0) K/mm3 RBC (3.65-5.03) M/mm3 Hgb (11.8-15.2) gm/dl Hct (35.5-45.6) % MCV (84-94) fl MCH (28-32) pg MCHC (32-34) % RDW (13.2-15.2) % Plt Count (140-440) K/mm3 Lymph % (Auto) (13.4-35.0) % [place] % (Auto) (0.0-7.3) % Eos % (Auto) (0.0-4.3) % Baso % (Auto) (0.0-1.8) % Lymph # (Auto) (1.2-5.4) K/mm3 [place] # (Auto) (0.0-0.8) K/mm3 Eos # (Auto) (0.0-0.4) K/mm3 Baso # (Auto) (0.0-0.1) K/mm3 Seg Neutrophils % (40.0-70.0) % Seg Neutrophils # (1.8-7.7) K/mm3 PT (12.2-14.9) Sec. INR (0.87-1.13) APTT (24.2-36.6) Sec. Thrombin Time (15.1-19.6) Sec. D-Dimer (0-234) ng/mlDDU Sodium 131 L (137-145) mmol/L Potassium 3.7 (3.6-5.0) mmol/L Chloride 97.5 L (98-107) mmol/L Carbon Dioxide 10 L (22-30) mmol/L Anion Gap 27 mmol/L BUN 33 H (9-20) mg/dL Creatinine 1.8 H (0.8-1.3) mg/dL Estimated GFR 46 ml/min BUN/Creatinine Ratio 18 % Glucose 136 H (75-100) mg/dL POC Glucose (70-105) mg/dL Calcium 7.6 L (8.4-10.2) mg/dL Total Bilirubin 2.20 H (0.1-1.2) mg/dL AST 65 H (5-40) units/L ALT 22 (7-56) units/L Alkaline Phosphatase 142 H (35-129) units/L Ammonia 67.0 H (25-60) umol/L Total Creatine Kinase 126 (55-170) units/L CK-MB (CK-2) 2.7 (0.0-4.0) ng/mL CK-MB (CK-2) Rel Index 2.1 (0-4) Troponin T < 0.010 (0.00-0.029) ng/mL Total Protein 5.9 L (6.3-8.2) g/dL Albumin 1.6 L (3.9-5) g/dL Albumin/Globulin Ratio 0.4 % Plasma/Serum Alcohol (0-0.07) % Blood Type Crossmatch 10/10/21 10/11/21 Range/Units 23:33 00:10 WBC (4.5-11.0) K/mm3 RBC (3.65-5.03) M/mm3 Hgb (11.8-15.2) gm/dl Hct (35.5-45.6) % MCV (84-94) fl MCH (28-32) pg MCHC (32-34) % RDW (13.2-15.2) % Plt Count (140-440) K/mm3 Lymph % (Auto) (13.4-35.0) % [place] % (Auto) (0.0-7.3) % Eos % (Auto) (0.0-4.3) % Baso % (Auto) (0.0-1.8) % Lymph # (Auto) (1.2-5.4) K/mm3 [place] # (Auto) (0.0-0.8) K/mm3 Eos # (Auto) (0.0-0.4) K/mm3 Baso # (Auto) (0.0-0.1) K/mm3 Seg Neutrophils % (40.0-70.0) % Seg Neutrophils # (1.8-7.7) K/mm3 PT (12.2-14.9) Sec. INR (0.87-1.13) APTT (24.2-36.6) Sec. Thrombin Time (15.1-19.6) Sec. D-Dimer (0-234) ng/mlDDU Sodium (137-145) mmol/L Potassium (3.6-5.0) mmol/L Chloride (98-107) mmol/L Carbon Dioxide (22-30) mmol/L Anion Gap mmol/L BUN (9-20) mg/dL Creatinine (0.8-1.3) mg/dL Estimated GFR ml/min BUN/Creatinine Ratio % Glucose (75-100) mg/dL POC Glucose (70-105) mg/dL Calcium (8.4-10.2) mg/dL Total Bilirubin (0.1-1.2) mg/dL AST (5-40) units/L ALT (7-56) units/L Alkaline Phosphatase (35-129) units/L Ammonia (25-60) umol/L Total Creatine Kinase (55-170) units/L CK-MB (CK-2) (0.0-4.0) ng/mL CK-MB (CK-2) Rel Index (0-4) Troponin T (0.00-0.029) ng/mL Total Protein (6.3-8.2) g/dL Albumin (3.9-5) g/dL Albumin/Globulin Ratio % Plasma/Serum Alcohol < 0.01 (0-0.07) % Blood Type B POSITIVE Crossmatch See Detail - EKG Data -: EKG Interpreted by N[place] - EKG Data 10/11/21 00:48 EKG shows ventricularly paced rhythm at a rate of 106. [place] normal is a prolonged QT no ST segment elevations or depressions. Time interpretation 2000 - Radiology Data Ordering Physician: JAMES GALLAGHER MD Date of Service: 10/10/21 Procedure(s): CT head/brain wo con Accession Number(s): [id number] cc: JAMES GALLAGHER MD CT head without contrast INDICATION : CODE STROKE PROTOCOL!!! Stroke-Like symptoms. TECHNIQUE: Axial imaging performed from the skull apex through the skull base without the use of contrast. All CT scans at this location are performed using CT dose reduction for ALARA by means of automated exposure control. COMPARISON: 05/21/2021 FINDINGS: Parenchyma: No mass, stroke or hemorrhage. Low density is seen throughout the superior sagittal sinus. Ventricles: Ventricles are normal in size and appear symmetric. Soft tissues: Soft tissues including the orbits appear normal. Bones: No acute osseous abnormality. Sinuses: Sinuses and mastoid air cells are clear. IMPRESSION: 1. No mass, stroke or hemorrhage. 2. Possible superior sagittal sinus thrombosis. CODE STROKE: Time of Communication (OPERATIONS LIEUTENANT/CDT): 10:46 PM Licensed Practitioner Receiving Report: Dr. Gallagher Signer Name: Haim Jimenes MD Signed: 10/10/2021 11:48 PM Workstation Name: [id number] CHEST 1 VIEW 10/10/2021 11:28 PM INDICATION / CLINICAL INFORMATION: dyspnea. COMPARISON: 01/30/2021. FINDINGS: SUPPORT DEVICES: None. HEART / MEDIASTINUM: No significant abnormality. LUNGS / PLEURA: Chronic volume loss remains at the right chest with associated pleural thickening and apical scarring. The appearance is mildly worsened. The left chest remains clear. No pneumothorax. ADDITIONAL FINDINGS: No significant additional findings. IMPRESSION: 1. Worsening changes right chest is likely in part due to diminished lung volumes/volume loss. 2. Left lung clear. Signer Name: Hiam Jimenes MD Signed: 10/11/2021 12:05 AM Workstation Name: [id number] CTA HEAD WITH CONTRAST 10/10/2021 HISTORY: Stroke like symptoms. No additional information. COMPARISON: None. TECHNIQUE: All CT scans at this location are performed using CT dose reduction for ALARA by means of automated exposure control.. 3-D/MIP reformats postprocessed. Percentage stenosis is determined by direct quantitative measurements of diseased internal carotid artery diameter compared with normal distal internal carotid artery reference segments or by criteria similar to NASCET where applicable. CONTRAST: 100 ml of Omnipaque 350 FINDINGS: CTA HEAD: Intracranial vertebral arteries: No significant abnormality. Basilar artery: No significant abnormality. Posterior cerebral arteries: No significant abnormality. Intracranial internal carotid arteries: No significant abnormality. Anterior cerebral arteries: No significant abnormality. Middle cerebral arteries: No significant abnormality. Dural venous sinuses:Not optimally opacified. No significant abnormality. Additional findings: None. IMPRESSION: 1. No significant abnormality. Signer Name: Richie Pabon MD Signed: 10/11/2021 12:20 AM Workstation Name: [id number] CTA NECK WITH CONTRAST 10/10/2021 INDICATION / CLINICAL INFORMATION: Stroke like symptoms. No additional information. COMPARISON: None. TECHNIQUE: Routine CTA of the neck is performed. 3-D/MIP reformats were postprocessed. Percentage stenosis is determined by direct quantitative measurements of diseased internal carotid artery diameter compared with normal distal internal carotid artery reference segments or by criteria similar to NASCET where applicable. All CT scans at this location are performed using CT dose reduction for ALARA by means of automated exposure control. CONTRAST: 100 ml of Omnipaque 350 FINDINGS: Carotid bifurcations: No evidence of carotid bifurcation stenosis Carotid arteries: No significant abnormality. Cervical vertebral arteries: No significant abnormality. Aortic arch: No significant abnormality. Chronic scarring or atelectasis of right pulmonary apex IMPRESSION: No significant abnormality. Signer Name: Richie Pabon MD Signed: 10/11/2021 12:18 AM Workstation Name: [id number] Transcribed By: JOSHUA Dictated By: Richie Pabon MD Electronically Authenticated By: Richie Pabon MD Signed Date/Time: 10/11/21 0018 - Medical Decision Making Patient is a 66-year-old F Romanian male with past medical history of alcoholic cirrhosis who is presenting with some altered mental status slurred speech shortness of breath. Patient states been dizzy all day. Patient with INR el evated from his baseline of 2.7. Coagulopathy likely secondary to his liver disease as the patient is not on Coumadin. Patient with chronic thrombocytopenia. However his platelet count is decreased from baseline. Patient is guaiac positive. Does not appear to be melena. Blood transfusion has been ordered. Patient states that the slurred speech is new. Is possible that the patient may have had acute CVA however he is not a TPA candidate secondary to timing since onset as well as active bleeding. At the time of admission the patient did have one episode where he became very rigid and un responsive. Some deep breathing after approximately 30 seconds. Of rigidity. Peers as though the patient may have had seizure. Patient given 1 Ativan will continue to be monitored. Patient has a recent cocaine use. Did asked the patient whether he was still drinking alcohol and patient would not answer. Although the patient is difficult to understand secondary to his slurred speech he was appropriate with all of his answers except for whether he was still drinking alcohol. Alcohol level is negative. Is possible that seizure was withdrawal seizure Critical Care Time: Yes (30) Critical care attestation.: If time is entered above; I have spent that time in minutes in the direct care of this critically ill patient, excluding procedure time. ED Disposition Clinical Impression: Elevated bilirubin, Thrombocytopenia, SOB (shortness of breath), CVA (cerebral vascular accident), GI bleed, Coagulopathy, Dysarthria, Symptomatic anemia Liver failure Qualifiers: Liver failure chronicity: unspecified chronicity Hepatic coma status: without hepatic coma Qualified Code(s): K72.90 - Hepatic failure, unspecified without coma Disposition: ADMITTED INPATIENT Is pt being admited?: Yes Does the pt Need Aspirin: No Condition: Stable Time of Disposition: 01:02
[2021-10-11] MEDS ORDERED: MORPHINE 2 MG/1 ML INJ IV ONE (00:50)
[2021-10-11] MEDS ORDERED: LORazepam 2 MG/ML VIAL ONE ×2 (00:53→08:04)
[2021-10-11] MEDS ORDERED: SODIUM CHLORIDE 0.9% 1000 ML 1,000 ML IV ONE ×2 (01:04→06:26)
[2021-10-11] MEDS ORDERED: PHYTONADIONE IV ONE (01:33)
[2021-10-11] MEDS ORDERED: SODIUM CHLORIDE 0.9% IV ONE (01:33)
[2021-10-11] MEDS ORDERED: MIDAZOLAM 2 MG/2 ML INJ IV PRN (01:35)
[2021-10-11 01:45] LABS: Bilirubin,Urine NEG (Negative); Blood,Urine NEG (Negative); Color,Urine Amber (Yellow); Hyaline Casts,Urine 2 /LPF; Mucus,Urine FEW /HPF; Protein,Urine <15 mg/dL mg/dL (Negative)
[2021-10-11] MEDS ORDERED: ONDANSETRON 4 MG/2 ML INJ IV PRN (01:50)
[2021-10-11] MEDS ORDERED: MORPHINE 2 MG/1 ML INJ IV PRN (01:50)
[2021-10-11] MEDS ORDERED: traMADol 50 MG TAB PO PRN (01:50)
[2021-10-11] MEDS ORDERED: HYDROmorphone 1 MG/1 ML INJ IV PRN (01:50)
[2021-10-11] MEDS ORDERED: ACETAMINOPHEN 325 MG TAB PO PRN ×2 (01:50)
[2021-10-11] MEDS ORDERED: D5W/0.9% NACL 1,000 ML IV SCH (02:00)
--- NOTE | 2021-10-11 02:08 | History and Physical Report ---
History of Present Illness Date of examination: 10/11/21 Date of admission: 10/11/21 Chief complaint: Weakness Cardiac arrest History of present illness: 66-year-old male with history of alcoholic cirrhosis, hepatic encephalopathy, cocaine abuse and hypertension was brought to the emergency room because of altered mental status. Patient states he feels as though his speech is off. Also states has been dizzy all day. Patient complaining of some mild shortness of breath but no cough cold or congestion fevers or chills. Denies nausea vomiting or diarrhea. Patient states he has not been drinking In the emergency room patient had a seizure and approximately 5 minutes after receiving Ativan patient blood pressure dropped to 50 systolic. Patient was unresponsive and no pulse was found. CPR was given as per ACLS protocol. Patient was given 1 mg of epinephrine and 1 bicarb. Patient was intubated by the ER physician and patient regained ROSC. In the emergency room patient is found to have hemoglobin of 5.1 hematocrit 16.2, PT 30.9 INR 2.70, PTT 62.2 initial cardiac enzyme is 0.010. CT scan of the head shows no acute intracranial abnormality. She we are going to admit the patient with a diagnosis of stroke, GI bleeding, anemia, cardiac arrest, s donna. cardiology, critical care, GI and neurology for evaluation. Prognosis is guarded Med rec is done Past History Past Medical History: hypertension, other (Alcoholic cirrhosis, hepatic encephalopathy, cocaine abuse) Medications and Allergies Allergies Allergy/AdvReac Type Severity Reaction Status Date / Time lisinopril Allergy Severe EVERYTHING Verified 10/10/21 22:59 [facility] Home Medications Medication Instructions Recorded Confirmed Last Taken Type Aspirin EC [Halfprin EC] 81 mg PO QDAY #30 tablet 04/01/19 05/22/21 05/21/21 09:00 Rx Multivitamin [Multiple Vitamins] 1 each PO DAILY #30 tablet 04/01/19 05/22/21 05/21/21 09:00 Rx Spironolactone [Aldactone] 25 mg PO QDAY #30 tablet 04/01/19 05/22/21 05/21/21 09:00 Rx Folic Acid [Folvite] 1 mg PO QDAY #30 tablet 05/24/21 Unknown Rx Furosemide [Lasix TAB] 20 mg PO DAILY@0600 #30 tablet 05/24/21 Unknown Rx Losartan [Cozaar] 50 mg PO QDAY #30 tablet 05/24/21 Unknown Rx Metoprolol Xl [Metoprolol 50 mg PO QDAY #30 tablet 05/24/21 Unknown Rx SUCCINATE ER TAB] NIFEdipine XL [Procardia Xl] 60 mg PO QDAY #30 tablet 05/24/21 Unknown Rx Pantoprazole [Protonix TAB] 40 mg PO QDAY #30 tablet 05/24/21 Unknown Rx Spironolactone [Aldactone] 50 mg PO QDAY #30 tablet 05/24/21 Unknown Rx Active Meds: Active Medications Propofol (Diprivan 10 Mg/Ml) 1,000 mg in 100 mls @ 2.381 mls/hr IV TITR LILIBETH; Protocol Last Admin: 10/11/21 01:36 Dose: 5 mcg/kg/min, 2.381 mls/hr Documented by: Midazolam HCl 100 mg/ Sodium (Chloride) 100 mls @ 1 mls/hr IV TITR LILIBETH; Protocol Midazolam HCl (Midazolam 2 Mg/2 Ml Inj) 2 mg IV Q10MIN PRN PRN Reason: Sedation Review of Systems All systems: negative Constitutional: weakness, lethargy Neurological: change in speech, change in mentation Exam - Constitutional Vitals: Temp Pulse Resp BP Pulse Ox 95.8 F L 102 H 28 H 131/98 88 10/10/21 23:03 10/11/21 01:55 10/11/21 01:55 10/11/21 01:55 10/11/21 01:55 General appearance: Present: severe distress, well-nourished - EENT Eyes: Present: PERRL ENT: hearing intact, clear oral mucosa - Neck Neck: Present: supple, normal ROM - Respiratory Respiratory effort: normal Respiratory: bilateral: diminished - Cardiovascular Heart Sounds: Present: S1 & S2. Absent: rub, click - Extremities Extremities: pulses symmetrical, No edema Peripheral Pulses: within normal limits - Abdominal General gastrointestinal: Present: soft, non-tender, non-distended, normal bowel sounds Male genitourinary: Present: normal - Integumentary Integumentary: Present: clear, warm, dry - Musculoskeletal Musculoskeletal: gait normal, strength equal bilaterally - Psychiatric Psychiatric: other (Patient is lethargic) - Neurologic Neurologic: CNII-XII intact, moves all extremities, other (Patient is lethargic) HEART Score - HEART Score Troponin: Troponin T < 0.010 ng/mL (0.00-0.029) 10/10/21 23:33 Results - Labs CBC & Chem 7: 10/11/21 06:05 10/11/21 06:05 Labs: Laboratory Last Values WBC 8.5 K/mm3 (4.5-11.0) 10/10/21 23:33 RBC 1.25 M/mm3 (3.65-5.03) L 10/10/21 23:33 Hgb 5.0 gm/dl (11.8-15.2) L* 10/10/21 23:33 Hct 16.2 % (35.5-45.6) L* 10/10/21 23: MCV 129 fl (84-94) H 10/10/21 23: MCH 40 pg (28-32) H 10/10/21 23: MCHC 31 % (32-34) L 10/10/21 23: RDW 22.4 % (13.2-15.2) H 10/10/21 23:33 Plt Count 36 K/mm3 (140-440) L 10/10/21 23:33 Lymph % (Auto) 9.2 % (13.4-35.0) L 10/10/21 23:33 Carlton % (Auto) 7.4 % (0.0-7.3) H 10/10/21 23: Eos % (Auto) 0.0 % (0.0-4.3) 10/10/21 23: Baso % (Auto) 0.5 % (0.0-1.8) 10/10/21 23: Lymph # (Auto) 0.8 K/mm3 (1.2-5.4) L 10/10/21 23:33 Carlton # (Auto) 0.6 K/mm3 (0.0-0.8) 10/10/21 23: Eos # (Auto) 0.0 K/mm3 (0.0-0.4) 10/10/21 23: Baso # (Auto) 0.0 K/mm3 (0.0-0.1) 10/10/21 23: Seg Neutrophils % 82.9 % (40.0-70.0) H 10/10/21 23:33 Seg Neutrophils # 7.1 K/mm3 (1.8-7.7) 10/10/21 23:33 PT 30.9 Sec. (12.2-14.9) H 10/10/21 23:33 INR 2.70 (0.87-1.13) H 10/10/21 23:33 APTT 62.2 Sec. (24.2-36.6) H* 10/10/21 23:33 Thrombin Time 34.6 Sec. (15.1-19.6) H 10/10/21 23:33 D-Dimer > 48964 ng/mlDDU (0-234) H 10/10/21 23:33 Sodium 131 mmol/L (137-145) L 10/10/21 23:33 Potassium 3.7 mmol/L (3.6-5.0) 10/10/21 23:33 Chloride 97.5 mmol/L (98-107) L 10/10/21 23:33 Carbon Dioxide 10 mmol/L (22-30) L 10/10/21 23:33 Anion Gap 27 mmol/L 10/10/21 23:33 BUN 33 mg/dL (9-20) H 10/10/21 23:33 Creatinine 1.8 mg/dL (0.8-1.3) H 10/10/21 23:33 Estimated GFR 46 ml/min 10/10/21 23:33 BUN/Creatinine Ratio 18 % 10/10/21 23:33 Glucose 136 mg/dL (75-100) H 10/10/21 23:33 POC Glucose 123 mg/dL (70-105) H 10/10/21 23:02 Calcium 7.6 mg/dL (8.4-10.2) L 10/10/21 23:33 Total Bilirubin 2.20 mg/dL (0.1-1.2) H 10/10/21 23:33 AST 65 units/L (5-40) H 10/10/21 23:33 ALT 22 units/L (7-56) 10/10/21 23:33 Alkaline Phosphatase 142 units/L (35-129) H 10/10/21 23:33 Ammonia 67.0 umol/L (25-60) H 10/10/21 23:33 Total Creatine Kinase 126 units/L (55-170) 10/10/21 23:33 CK-MB (CK-2) 2.7 ng/mL (0.0-4.0) 10/10/21 23: CK-MB (CK-2) Rel Index 2.1 (0-4) 10/10/21 23: Troponin T < 0.010 ng/mL (0.00-0.029) 10/10/21 23: Total Protein 5.9 g/dL (6.3-8.2) L 10/10/21: Albumin 1.6 g/dL (3.9-5) L 10/10/21 23: Albumin/Globulin Ratio 0.4 % 10/10/21: Urine Color Radha (Yellow) 10/11/21 01:00 Urine Turbidity Clear (Clear) 10/11/21 01:00 Urine pH 5.0 (5.0-7.0) 10/11/21 01:00 Ur Specific Josephine 1.045 (1.003-1.030) H 10/11/21 01:00 Urine Protein <15 mg/dl mg/dL (Negative) 10/11/21 01:00 Urine Glucose (UA) Neg mg/dL (Negative) 10/11/21 01:00 Urine Ketones Neg mg/dL (Negative) 10/11/21 01:00 Urine Blood Neg (Negative) 10/11/21 01:00 Urine Nitrite Neg (Negative) 10/11/21 01:00 Urine Bilirubin Neg (Negative) 10/11/21 01:00 Urine Urobilinogen 4.0 mg/dL (<2.0) 10/11/21 01:00 Ur Leukocyte Esterase Neg (Negative) 10/11/21 01:00 Urine WBC (Auto) 11.0 /HPF (0.0-6.0) H 10/11/21 01:00 Urine RBC (Auto) 12.0 /HPF (0.0-6.0) 10/11/21 01:00 U Epithel Cells (Auto) < 1.0 /HPF (0-13.0) 10/11/21 01:00 Hyaline Casts 2 /LPF 10/11/21 01:00 Urine Mucus Few /HPF 10/11/21 01:00 Plasma/Serum Alcohol < 0.01 % (0-0.07) 10/10/21 23:33 Blood Type B POSITIVE 10/11/21 00:10 Antibody Screen Negative 10/11/21 00:10 Crossmatch See Detail 10/11/21 00:10 - Imaging and Cardiology Chest x-ray: report reviewed CT Scan - head: report reviewed Assessment and Plan VTE prophylaxis?: Mechanical Plan of care discussed with patient/family: Yes - Patient Problems (1) Cardiac arrest Current Visit: No Status: Acute Plan to address problem: Admit the patient to the ICU. NPO. D5 normal saline at the rate of 125 cc/h. Protonix 40 mg IV every 12 hours. We will hold the aspirin because of GI bleeding. We will do the serial cardiac enzymes. Echocardiogram. Cardiology consult (2) GI bleeding Current Visit: No Status: Acute Plan to address problem: NPO. IV fluid D5 normal saline at the rate of 125 cc/h. Protonix 40 mg IV every 12 hours. GI evaluation. Recheck CBC in the morning. We are transfusing 2 unit of packed red blood cell (3) CVA (cerebral vascular accident) Current Visit: No Status: Acute Plan to address problem: Put the patient on CVA pathway. No aspirin because of GI bleeding. Lipitor 40 mg p.o. daily. PT OT any speech evaluation. MRI of the brain and MRA of the brain and neck with and without contrast. Neurology evaluation (4) Cirrhosis with alcoholism Current Visit: No Status: Acute Plan to address problem: Protonix 40 mg IV every 12 hours. Folic acid 1 mg p.o. daily. We will monitor the patient closely. Will consult GI for evaluation. We continue the home m edication (5) Coagulopathy Current Visit: No Status: Acute Plan to address problem: Patient get vitamin K 5 mg IV x1 dose. We are giving 2 unit of fresh frozen plasma. We will recheck CBC PT/INR in the morning (6) Symptomatic anemia Current Visit: No Status: Acute Plan to address problem: We are giving 3 unit of packed red blood cell. Protonix 40 mg IV every 12 hours. GI evaluation. Recheck CBC in the morning (7) Elevated liver enzymes Current Visit: No Status: Acute Plan to address problem: . We monitor the liver enzymes closely. Recheck CMP in the morning. GI evaluation (8) EtOH dependence Current Visit: No Status: Chronic Qualifiers: Complication of substance-induced condition: with unspecified complication Plan to address problem: We counseled the patient regarding quit drinking. We will monitor the patient closely (9) DVT prophylaxis Current Visit: No Status: Acute Plan to address problem: SCD for DVT prophylaxis. Protonix 40 mg IV every 12 hours for GI prophylaxis. Patient is a full code
--- NOTE | 2021-10-11 02:12 | XRay Report ---
CHEST 1 VIEW 10/11/2021 1:03 AM INDICATION / CLINICAL INFORMATION: et tube. COMPARISON: Previous day. FINDINGS: SUPPORT DEVICES: Endotracheal tube and NG tube in satisfactory position. HEART / MEDIASTINUM: No significant abnormality. LUNGS / PLEURA: Improving aeration right chest. Apical thickening/volume loss remains on the right. R ight pleural plaques again noted. No pneumothorax. ADDITIONAL FINDINGS: No significant additional findings. IMPRESSION: 1. Lines and tubes in satisfactory position. 2. Improving aeration right chest. Signer Name: Haim Jimenes MD Signed: 10/11/2021 2:07 AM Workstation Name: [id number]
[2021-10-11] MEDS: MIDAZOLAM 100 MG in SODIUM CHLORIDE 0.9% 80 ML IV SCH ×4 (02:18→05:20)
[2021-10-11] MEDS ORDERED: LORazepam 2 MG/ML VIAL IV ONE (02:22)
[2021-10-11] MEDS ORDERED: fentaNYL 100 MCG/2 ML INJ IV PRN (03:06)
[2021-10-11] MEDS ORDERED: fentaNYL DRIP Premix 2,000 MCG/100 ML BAG IV SCH (03:07)
[2021-10-11] MEDS ORDERED: fentaNYL DRIP Premix 2,000 MCG/100 ML BAG IV ONE (03:08)
[2021-10-11 03:17] LABS: ABG Base Excess -23.7 mmol/L (-2.0-3.0); ABG HCO3 4.8 mmol/L (20.0-26.0); ABG Methemoglobin 0.7 % (0.0-1.5); ABG Oxygen Saturation 99.4 % (95.0-99.0); ABG PCO2 18.4 mm Hg
[2021-10-11 03:21] LABS: ABG PH 7.038 pH Units (7.350-7.450); ABG PO2 308.1 mm Hg (80.0-90.0)
--- NOTE | 2021-10-11 05:41 | Procedure Note ---
Date of procedure: 10/11/21 - Central Line Placement Right Femoral Consent Obtained: emergent situation Time Out Performed: Yes Patient Placed on Monitor/Pulse Ox: Yes MD Prep: mask, gown, gloves Central Line Prep: Chlorhexidine scrub, sterile drapes applied Local Anesthesia Used: Lidocaine 1% Amount of Anesthesia Used (mls): 5 Ultrasound Used for Placement: No Central Line Lumen Inserted: triple Reason for Insertion: Emergency Venous Access Bloods Obtained for Lab: No Central Line Position: good blood return, other Dressing Applied: Tegaderm Patient Tolerated Procedure: well, no complications Complications: none
[2021-10-11] MEDS ORDERED: EPINEPHrine 1 MG/1 ML 8 MG in SODIUM CHLORIDE 0.9% 250ML 242 ML IV SCH (05:51)
[2021-10-11] MEDS ORDERED: NORepinephrine/NS 8 MG-250 ML 8 MG/250 ML INFUS..BTL IV SCH (06:00)
[2021-10-11] MEDS ORDERED: FUROSEMIDE 20 MG TAB PO SCH (06:00)
[2021-10-11 06:24] LABS: Mean Corpuscular HGB Conc 29 % (32-34); Red Blood Count 1.09 M/mm3 (3.65-5.03)
[2021-10-11] MEDS ORDERED: VASOPRESSIN 20 UNIT in SODIUM CHLORIDE 0.9% 100 ML IV SCH (06:26)
[2021-10-11] MEDS ORDERED: SODIUM CHLORIDE 0.9% 1000 ML 1,000 ML ONE (06:27)
[2021-10-11 06:36] LABS: Hematocrit 12.7 % (35.5-45.6); Hemoglobin 3.6 gm/dl (11.8-15.2); Mean Corpuscular Volume 116 fl (84-94); Platelet Count 14 K/mm3 (140-440); Red Cell Distribution Width 22.7 % (13.2-15.2)
[2021-10-11 06:49] LABS: Calcium 5.7 mg/dL (8.4-10.2)
[2021-10-11] MEDS ORDERED: cefTRIAXone/NS 2 GM/100 ML 2 GM/100 ML BAG IV SCH (07:00)
[2021-10-11] MEDS ORDERED: OCTREOTIDE 500 MCG in SODIUM CHLORIDE 0.9% 100 ML IV SCH (07:00)
[2021-10-11] MEDS ORDERED: PANTOPRAZOLE 80 MG in SODIUM CHLORIDE 0.9% 100 ML IV SCH (07:00)
[2021-10-11] MEDS ORDERED: INSULIN LISPRO 100 UNIT/ML SUB-Q SCH (07:30)
[2021-10-11] MEDS ORDERED: DEXTROSE 50% IN WATER (25GM) 50 ML SYRINGE IV PRN (07:30)
[2021-10-11] MEDS ORDERED: SODIUM BICARBONATE 50 MEQ in SODIUM CHLORIDE 0.9% 1000 ML 1,000 ML IV SCH (08:00)
[2021-10-11] MEDS ORDERED: LORazepam 1 MG TAB PO PRN (08:15)
[2021-10-11] MEDS ORDERED: LORazepam 2 MG/ML VIAL IV PRN (09:00)
--- NOTE | 2021-10-11 09:04 | Electrocardiograph Report ---
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
--- NOTE | 2021-10-11 09:13 | Consultation ---
History of Present Illness Consult date: 10/11/21 Reason for Consult: post cardiac arrest and seizure,hx of liver cirrhosis History of present illness: Weakness Cardiac arrest History of present illness: Past History Past Medical History: hypertension, other (Alcoholic cirrhosis, hepatic encephalopathy, cocaine abuse) Medications and Allergies Allergies Allergy/AdvReac Type Severity Reaction Status Date / Time lisinopril Allergy Severe EVERYTHING Verified 10/10/21 22:59 [facility] Home Medications Medication Instructions Recorded Confirmed Last Taken Type Aspirin EC [Halfprin EC] 81 mg PO QDAY #30 tablet 04/01/19 05/22/21 05/21/21 09:00 Rx Multivitamin [Multiple Vitamins] 1 each PO DAILY #30 tablet 04/01/19 05/22/21 05/21/21 09:00 Rx Spironolactone [Aldactone] 25 mg PO QDAY #30 tablet 04/01/19 05/22/21 05/21/21 09:00 Rx Folic Acid [Folvite] 1 mg PO QDAY #30 tablet 05/24/21 Unknown Rx Furosemide [Lasix TAB] 20 mg PO DAILY@0600 #30 tablet 05/24/21 Unknown Rx Losartan [Cozaar] 50 mg PO QDAY #30 tablet 05/24/21 Unknown Rx Metoprolol Xl [Metoprolol 50 mg PO QDAY #30 tablet 05/24/21 Unknown Rx SUCCINATE ER TAB] NIFEdipine XL [Procardia Xl] 60 mg PO QDAY #30 tablet 05/24/21 Unknown Rx Pantoprazole [Protonix TAB] 40 mg PO QDAY #30 tablet 05/24/21 Unknown Rx Spironolactone [Aldactone] 50 mg PO QDAY #30 tablet 05/24/21 Unknown Rx Active Meds: Active Medications Acetaminophen (Acetaminophen 325 Mg Tab) 650 mg PO Q4H PRN PRN Reason: Pain MILD(1-3)/Fever >100.5/COLLINS Atorvastatin Calcium (Atorvastatin 40 Mg Tab) 40 mg PO QHS LILIBETH Dextrose (Dextrose 50% In Water (25gm) 50 Ml Syringe) 50 ml IV Q30MIN PRN; Protocol PRN Reason: Hypoglycemia Fentanyl (Fentanyl 100 Mcg/2 Ml Inj) 50 mcg IV Q10MIN PRN PRN Reason: ANALGESIA Folic Acid (Folic Acid 1 Mg Tab) 1 mg PO QDAY LILIBETH Dextrose/Sodium Chloride (D5ns) 1,000 mls @ 125 mls/hr IV DIRECT LILIBETH Last Admin: 10/11/21 02:35 Dose: 125 mls/hr Documented by: NORepinephrine/NS 8 MG-250 ML (Norepinephrine/Ns 8 Mg-250 Ml (Double Conc)) 8 mg in 250 mls @ 3.75 mls/hr IV TITRATE LILIBETH; Protocol Last Titration: 10/11/21 06:01 Dose: 30 mcg/min, 56.25 mls/hr Documented by: Epinephrine 8 mg/ Sodium (Chloride) 250 mls @ 3.75 mls/hr IV TITR LILIBETH; Protocol Last Titration: 10/11/21 08:31 Dose: 10 mcg/min, 18.75 mls/hr Documented by: Vasopressin 20 unit/ Sodium (Chloride) 101 mls @ 9.09 mls/hr IV TITR LILIBETH; Protocol Last Admin: 10/11/21 06:42 Dose: 0.03 units/min, 9.09 mls/hr Documented by: Pantoprazole Sodium 80 mg/ (Sodium Chloride) 100 mls @ 10 mls/hr IV DIRECT LILIBETH Last Admin: 10/11/21 07:28 Dose: 8 mg/hr, 10 mls/hr Documented by: Ceftriaxone Sodium (Rocephin/Ns 2 Gm/100 Ml) 2 gm in 100 mls @ 200 mls/hr IV Q24H LILIBETH; Protocol Last Admin: 10/11/21 08:13 Dose: 200 mls/hr Documented by: Octreotide Acetate 500 mcg/ (Sodium Chloride) 101 mls @ 5.05 mls/hr IV TITR LILIBETH; Protocol Last Admin: 10/11/21 07:27 Dose: 25 mcg/hr, 5.05 mls/hr Documented by: Sodium Bicarbonate 50 meq/ (Sodium Chloride) 1,050 mls @ 100 mls/hr IV DIRECT LILIBETH Levetiracetam 500 mg/ Dextrose 105 mls @ 400 mls/hr IV Q12HR LILIBETH Insulin Human Lispro (Insulin Lispro 100 Unit/Ml) 0 unit SUB-Q Q6HR LILIBETH; Protocol Lorazepam (Lorazepam 2 Mg/Ml Vial) 2 mg IV Q4H PRN PRN Reason: seizure Multivitamins (Multivitamins ,Therapeutic Tab) 1 each PO DAILY LILIBETH Ondansetron HCl (Ondansetron 4 Mg/2 Ml Inj) 4 mg IV Q8H PRN PRN Reason: Nausea And Vomiting Sodium Chloride (Sodium Chloride 0.9% 10 Ml Flush Syringe) 10 ml IV BID LILIBETH Sodium Chloride (Sodium Chloride 0.9% 10 Ml Flush Syringe) 10 ml IV PRN PRN PRN Reason: LINE FLUSH Spironolactone (Spironolactone 25 Mg Tab) 25 mg PO QDAY LILIBETH Physical Examination - Vital Signs Vital Signs: Vital Signs Temp Pulse Resp BP Pulse Ox 98.6 F 106 H 14 107/72 95 10/10/21 23:00 10/10/21 23:00 10/10/21 23:00 10/10/21 23:00 10/10/21 23:00 Results - Laboratory Findings CBC and BMP: 10/11/21 09:59 10/11/21 09:59 Abnormal Lab Findings: Abnormal Labs 10/10/21 10/10/21 10/10/21 23:02 23:33 23:33 RBC 1.25 L Hgb 5.0 L* Hct 16.2 L* MCV 129 H MCH 40 H MCHC 31 L RDW 22.4 H Plt Count 36 L Lymph % (Auto) 9.2 L Fall[place] % (Auto) 7.4 H Lymph # (Auto) 0.8 L Seg Neutrophils % 82.9 H PT 30.9 H INR 2.70 H APTT 62.2 H* Thrombin Time 34.6 H D-Dimer > 27257 H ABG pH ABG pO2 ABG HCO3 ABG O2 Saturation ABG Base Excess ABG Hemoglobin Sodium Chloride Carbon Dioxide BUN Creatinine Glucose POC Glucose 123 H Calcium Total Bilirubin AST Alkaline Phosphatase Ammonia Total Protein Albumin Ur Specific Theodore Urine WBC (Auto) Crossmatch 10/10/21 10/10/21 10/11/21 23:33 23:33 00:10 RBC Hgb Hct MCV MCH MCHC RDW Plt Count Lymph % (Auto) Fall[place] % (Auto) Lymph # (Auto) Seg Neutrophils % PT INR APTT Thrombin Time D-Dimer ABG pH ABG pO2 ABG HCO3 ABG O2 Saturation ABG Base Excess ABG Hemoglobin Sodium 131 L Chloride 97.5 L Carbon Dioxide 10 L BUN 33 H Creatinine 1.8 H Glucose 136 H POC Glucose Calcium 7.6 L Total Bilirubin 2.20 H AST 65 H Alkaline Phosphatase 142 H Ammonia 67.0 H Total Protein 5.9 L Albumin 1.6 L Ur Specific Theodore Urine WBC (Auto) Crossmatch See Detail 10/11/21 10/11/21 10/11/21 01:00 03:00 06:05 RBC 1.09 L Hgb 3.6 L* Hct 12.7 L* MCV 116 H MCH 33 H MCHC 29 L RDW 22.7 H Plt Count 14 L* Lymph % (Auto) Fall[place] % (Auto) Lymph # (Auto) Seg Neutrophils % PT INR APTT Thrombin Time D-Dimer ABG pH 7.038 L* ABG pO2 308.1 H ABG HCO3 4.8 L ABG O2 Saturation 99.4 H ABG Base Excess -23.7 L ABG Hemoglobin 6.2 L Sodium Chloride Carbon Dioxide BUN Creatinine Glucose POC Glucose Calcium Total Bilirubin AST Alkaline Phosphatase Ammonia Total Protein Albumin Ur Specific Theodore 1.045 H Urine WBC (Auto) 11.0 H Crossmatch 10/11/21 06:05 RBC Hgb Hct MCV MCH MCHC RDW Plt Count Lymph % (Auto) [place] % (Auto) Lymph # (Auto) Seg Neutrophils % PT INR APTT Thrombin Time D-Dimer ABG pH ABG pO2 ABG HCO3 ABG O2 Saturation ABG Base Excess ABG Hemoglobin Sodium Chloride 109.0 H Carbon Dioxide 5 L* BUN 27 H Creatinine 1.9 H Glucose 605 H* POC Glucose Calcium 5.7 L* D Total Bilirubin AST Alkaline Phosphatase Ammonia Total Protein Albumin Ur Specific Theodore Urine WBC (Auto) Crossmatch Assessment and Plan pt. could not evaluate she was coded twice today EEG is remarkable for diffuse lowing study performed after cardiac arrest .
[2021-10-11] MEDS ORDERED: SODIUM CHLORIDE 0.9% 500 ML 500 ML IV PRN (09:30)
--- NOTE | 2021-10-11 09:46 | Consultation ---
History of Present Illness - Reason for Consult Consult date: 10/11/21 acute renal failure, chronic renal failure, metabolic acidosis - History of Present Illness 66-year-old male with history of alcoholic cirrhosis, hepatic encephalopathy, cocaine abuse and hypertension was brought to the emergency room because of altered mental status. Patient states he feels as though his speech is off. Also states has been dizzy all day. Patient complaining of some mild shortness of breath but no cough cold or congestion fevers or chills. Denies nausea vomiting or diarrhea. Patient states he has not been drinking In the emergency room patient had a seizure and approximately 5 minutes after r eceiving Ativan patient blood pressure dropped to 50 systolic. Patient was unresponsive and no pulse was found. CPR was given as per ACLS protocol. Patient was given 1 mg of epinephrine and 1 bicarb. Patient was intubated by the ER physician and patient regained ROSC. In the emergency room patient is found to have hemoglobin of 5.1 hematocrit 16.2, PT 30.9 INR 2.70, PTT 62.2 initial cardiac enzyme is 0.010. CT scan of the head shows no acute intracranial abnormality. She we are going to admit the patient with a diagnosis of stroke, GI bleeding, anemia, cardiac arrest, seizure. cardiology, critical care, GI and neurology for evaluation. Prognosis is guarded Med rec is done Past History Past Medical History: hypertension, other (Alcoholic cirrhosis, hepatic encephalopathy, cocaine abuse) Review of Systems All systems: negative Constitutional: weakness, lethargy Neurological: change in speech, change in mentation Past History Past Medical History: hypertension, other (Alcoholic cirrhosis, hepatic enc ephalopathy, cocaine abuse) Medications and Allergies Allergies Allergy/AdvReac Type Severity Reaction Status Date / Time lisinopril Allergy Severe EVERYTHING Verified 10/10/21 22:59 [facility] Medications Medication Instructions Recorded Confirmed Last Taken Type Aspirin EC [Halfprin EC] 81 mg PO QDAY #30 tablet 04/01/19 05/22/21 05/21/21 09:00 Rx Multivitamin [Multiple Vitamins] 1 each PO DAILY #30 tablet 04/01/19 05/22/21 05/21/21 09:00 Rx Spironolactone [Aldactone] 25 mg PO QDAY #30 tablet 04/01/19 05/22/21 05/21/21 09:00 Rx Folic Acid [Folvite] 1 mg PO QDAY #30 tablet 05/24/21 Unknown Rx Furosemide [Lasix TAB] 20 mg PO DAILY@0600 #30 tablet 05/24/21 Unknown Rx Losartan [Cozaar] 50 mg PO QDAY #30 tablet 05/24/21 Unknown Rx Metoprolol Xl [Metoprolol 50 mg PO QDAY #30 tablet 05/24/21 Unknown Rx SUCCINATE ER TAB] NIFEdipine XL [Procardia Xl] 60 mg PO QDAY #30 tablet 05/24/21 Unknown Rx Pantoprazole [Protonix TAB] 40 mg PO QDAY #30 tablet 05/24/21 Unknown Rx Spironolactone [Aldactone] 50 mg PO QDAY #30 tablet 05/24/21 Unknown Rx Active Meds: Active Medications Acetaminophen (Acetaminophen 325 Mg Tab) 650 mg PO Q4H PRN PRN Reason: Pain MILD(1-3)/Fever >100.5/COLLINS Atorvastatin Calcium (Atorvastatin 40 Mg Tab) 40 mg PO QHS LILIBETH Dextrose (Dextrose 50% In Water (25gm) 50 Ml Syringe) 50 ml IV Q30MIN PRN; Protocol PRN Reason: Hypoglycemia Fentanyl (Fentanyl 100 Mcg/2 Ml Inj) 50 mcg IV Q10MIN PRN PRN Reason: ANALGESIA Folic Acid (Folic Acid 1 Mg Tab) 1 mg PO QDAY LILIBETH Last Admin: 10/11/21 09:32 Dose: Not Given Documented by: Dextrose/Sodium Chloride (D5ns) 1,000 mls @ 125 mls/hr IV DIRECT LILIBETH Last Admin: 10/11/21 02:35 Dose: 125 mls/hr Documented by: NORepinephrine/NS 8 MG-250 ML (Norepinephrine/Ns 8 Mg-250 Ml (Double Conc)) 8 mg in 250 mls @ 3.75 mls/hr IV TITRATE LILIBETH; Protocol Last Titration: 10/11/21 06:01 Dose: 30 mcg/min, 56.25 mls/hr Documented by: Epinephrine 8 mg/ Sodium (Chloride) 250 mls @ 3.75 mls/hr IV TITR LILIBETH; Protocol Last Titration: 10/11/21 08:31 Dose: 10 mcg/min, 18.75 mls/hr Documented by: Vasopressin 20 unit/ Sodium (Chloride) 101 mls @ 9.09 mls/hr IV TITR LILIBETH; Protocol Last Admin: 10/11/21 06:42 Dose: 0.03 units/min, 9.09 mls/hr Documented by: Pantoprazole Sodium 80 mg/ (Sodium Chloride) 100 mls @ 10 mls/hr IV DIRECT LILIBETH Last Admin: 10/11/21 07:28 Dose: 8 mg/hr, 10 mls/hr Documented by: Ceftriaxone Sodium (Rocephin/Ns 2 Gm/100 Ml) 2 gm in 100 mls @ 200 mls/hr IV Q24H [facility]; Protocol Last Admin: 10/11/21 08:13 Dose: 200 mls/hr Documented by: Octreotide Acetate 500 mcg/ (Sodium Chloride) 101 mls @ 5.05 mls/hr IV TITR LILIBETH; Protocol Last Admin: 10/11/21 07:27 Dose: 25 mcg/hr, 5.05 mls/hr Documented by: Levetiracetam 500 mg/ Dextrose 105 mls @ 400 mls/hr IV Q12HR LILIBETH Sodium Chloride (Nacl 0.9% 500 Ml) 500 mls @ 1 mls/hr IV DIRECT PRN PRN Reason: ARTERIAL LINE FLUSH Sodium Bicarbonate 150 meq/ (Dextrose) 1,150 mls @ 125 mls/hr IV DIRECT LILIBETH Insulin Human Lispro (Insulin Lispro 100 Unit/Ml) 0 unit SUB-Q Q6HR LILIBETH; Protocol Lorazepam (Lorazepam 2 Mg/Ml Vial) 2 mg IV Q4H PRN PRN Reason: seizure Last Admin: 10/11/21 09:00 Dose: 2 mg Documented by: Lorazepam (Lorazepam 1 Mg Tab) 2 mg PO QHS PRN PRN Reason: Seizures Multivitamins (Multivitamins ,Therapeutic Tab) 1 each PO DAILY [facility] Last Admin: 10/11/21 09:32 Dose: Not Given Documented by: Ondansetron HCl (Ondansetron 4 Mg/2 Ml Inj) 4 mg IV Q8H PRN PRN Reason: Nausea And Vomiting Sodium Chloride (Sodium Chloride 0.9% 10 Ml Flush Syringe) 10 ml IV BID [facility] Last Admin: 10/11/21 09:32 Dose: Not Given Documented by: Sodium Chloride (Sodium Chloride 0.9% 10 Ml Flush Syringe) 10 ml IV PRN PRN PRN Reason: LINE FLUSH Spironolactone (Spironolactone 25 Mg Tab) 25 mg PO QDAY [facility] Last Admin: 10/11/21 09:32 Dose: Not Given Documented by: Exam - Vital Signs Vital signs: Vital Signs Temp Pulse Resp BP Pulse Ox 98.6 F 106 H 14 107/72 95 10/10/21 23:00 10/10/21 23:00 10/10/21 23:00 10/10/21 23:00 10/10/21 23:00 - Physical Exam Narrative exam: General appearance: Present: severe distress, well-nourished - EENT Eyes: Present: PERRL ENT: hearing intact, clear oral mucosa - Neck Neck: Present: supple, normal ROM - Respiratory Respiratory effort: normal Respiratory: bilateral: diminished - Cardiovascular Heart Sounds: Present: S1 & S2. Absent: rub, click - Extremities Extremities: pulses symmetrical, No edema Peripheral Pulses: within normal limits - Abdominal General gastrointestinal: Present: soft, non-tender, non-distended, normal bowel sounds Male genitourinary: Present: normal - Integumentary Integumentary: Present: clear, warm, dry - Musculoskeletal Musculoskeletal: gait normal, strength equal bilaterally - Psychiatric Psychiatric: other (Patient is lethargic) - Neurologic Neurologic: CNII-XII intact, moves all extremities, other (Patient is lethargic) Results - Lab Results 10/11/21 06:05 10/11/21 06:05 Most recent lab results ABG pH 7.038 pH Units (7.350-7.450) L* 10/11/21 03:00 ABG pCO2 18.4 mm Hg 10/11/21 03:00 ABG pO2 308.1 mm Hg (80.0-90.0) H 10/11/21 03:00 ABG HCO3 4.8 mmol/L (20.0-26.0) L 10/11/21 03:00 ABG O2 Saturation 99.4 % (95.0-99.0) H 10/11/21 03:00 Calcium 5.7 mg/dL (8.4-10.2) L* D 10/11/21 06:05 Assessment and Plan Impression: * JIA with ATN * metabolic acidosis * symptomatic anemia * AMS * Cirrhosis * CVA * Gi bleeding * etoh abuse Plan: * rec PRBCs to keep Hb greater than 8 * jia due to hypoperfusion from hypovolumia and sepsis * high risk for hepatorenal syndrome as well * add bicarb gtt * vasopressors to keep MAP>65 * avoid nephrotoxins * aggressive resuscitation fluids * not a candidate for hemodialysis at this time * supportive care, overall poor prognosis -
[2021-10-11] MEDS ORDERED: NIFEdipine XL 60 MG TAB PO SCH (10:00)
[2021-10-11] MEDS ORDERED: levETIRAcetam 500 MG in DEXTROSE 5% IN WATER 100 ML IV SCH (10:00)
[2021-10-11] MEDS ORDERED: SODIUM BICARBONATE 150 MEQ in DEXTROSE 5% IN WATER 1,000 ML IV SCH (10:00)
[2021-10-11] MEDS ORDERED: METOPROLOL SUCCINATE XL 50 MG TAB PO SCH (10:00)
[2021-10-11] MEDS ORDERED: PANTOPRAZOLE 40 MG INJ IV SCH (10:00)
[2021-10-11] MEDS ORDERED: SPIRONOLACTONE 25 MG TAB PO SCH (10:00)
[2021-10-11] MEDS ORDERED: FOLIC ACID 1 MG TAB PO SCH (10:00)
[2021-10-11] MEDS ORDERED: LOSARTAN 50 MG TAB PO SCH (10:00)
[2021-10-11] MEDS ORDERED: MULTIVITAMINS ,THERAPEUTIC TAB PO SCH (10:00)
[2021-10-11] MEDS ORDERED: NON-FORMULARY EACH (Multivitamin [Multiple Vitamins] 1 EACH Tablet) PO SCH (10:00)
[2021-10-11 10:34] LABS: Albumin 1.5 g/dL (3.9-5); Calcium 6.2 mg/dL (8.4-10.2)
[2021-10-11 10:44] LABS: Mean Corpuscular HGB Conc 29 % (32-34); Mean Corpuscular Volume 105 fl (84-94); Red Blood Count 2.46 M/mm3 (3.65-5.03); Red Cell Distribution Width 17.1 % (13.2-15.2)
[2021-10-11 10:48] LABS: Anisocytosis 1+; Band Neutrophils # (Manual) 0.4 K/mm3; Macrocytosis 1+; Total Cells Counted 100
[2021-10-11] MEDS ORDERED: SODIUM BICARB 8.4% 50 MEQ/50 ML SYRINGE IV ONE ×2 (10:48→11:10)
[2021-10-11 10:49] LABS: Platelet Estimate Consistent w Auto
[2021-10-11 10:53] LABS: Hematocrit 25.7 % (35.5-45.6); Hemoglobin 7.3 gm/dl (11.8-15.2)
[2021-10-11 10:54] LABS: INR 3.62 (0.87-1.13); Platelet Count 14 K/mm3 (140-440)
[2021-10-11] MEDS ORDERED: DESMOPRESSIN ACETATE 40 MCG in SODIUM CHLORIDE 0.9% 50 ML IV ONE (11:00)
[2021-10-11] MEDS ORDERED: D5W 50 ML IVPB IV SCH (11:00)
[2021-10-11] MEDS ORDERED: ATROPINE 0.1% (1 MG/10 ML) CARDIAC SYRINGE ONE (11:10)
[2021-10-11] MEDS ORDERED: EPINEPHrine 1 MG/10 ML SYRINGE ONE (11:10)
[2021-10-11 11:21] LABS: Fibrinogen 64 mg/dl (211-480); Partial Thromboplastin Time > 240.0 Sec. (24.2-36.6)
--- NOTE | 2021-10-11 11:47 | Event Note ---
Date: 10/11/21 Patient has coded multiple times, no multiple pressors with minimal BP and multisystem organ failure. He is a full code but has been made aware that he will likely pass today. Patient is also in DIC and bleeding but is not responding appropriately to blood products. Will continue supportive management but overall prognosis is poor. Patient is unresponsive and not on any sedation.
--- NOTE | 2021-10-11 11:54 | Consultation ---
History of Present Illness Consult date: 10/11/21 Reason for consult: other (GI bleed, cardiac arrest, acute respiratory failure) History of present illness: 66 y/o male presented to the ED after syncopal event at home. Found to be severely anemic. Transfused blood but has not responded appropriately. No active signs of bleeding but has had some bloody bowel movements per report. He has now coded 3-4 times since admission. Unresponsive on vent and on multiple pressors. Past History Past Medical History: hypertension, other (Alcoholic cirrhosis, hepatic encephalopathy, cocaine abuse) Medications and Allergies Allergies Allergy/AdvReac Type Severity Reaction Status Date / Time lisinopril Allergy Severe EVERYTHING Verified 10/10/21 22:59 [facility] Medications Medication Instructions Recorded Confirmed Last Taken Type Aspirin EC [Halfprin EC] 81 mg PO QDAY #30 tablet 04/01/19 05/22/21 05/21/21 09:00 Rx Multivitamin [Multiple Vitamins] 1 each PO DAILY #30 tablet 04/01/19 05/22/21 05/21/21 09:00 Rx Spironolactone [Aldactone] 25 mg PO QDAY #30 tablet 04/01/19 05/22/21 05/21/21 09:00 Rx Folic Acid [Folvite] 1 mg PO QDAY #30 tablet 05/24/21 Unknown Rx Furosemide [Lasix TAB] 20 mg PO DAILY@0600 #30 tablet 05/24/21 Unknown Rx Losartan [Cozaar] 50 mg PO QDAY #30 tablet 05/24/21 Unknown Rx Metoprolol Xl [Metoprolol 50 mg PO QDAY #30 tablet 05/24/21 Unknown Rx SUCCINATE ER TAB] NIFEdipine XL [Procardia Xl] 60 mg PO QDAY #30 tablet 05/24/21 Unknown Rx Pantoprazole [Protonix TAB] 40 mg PO QDAY #30 tablet 05/24/21 Unknown Rx Spironolactone [Aldactone] 50 mg PO QDAY #30 tablet 05/24/21 Unknown Rx Active Meds: Active Medications Acetaminophen (Acetaminophen 325 Mg Tab) 650 mg PO Q4H PRN PRN Reason: Pain MILD(1-3)/Fever >100.5/COLLINS Dextrose (Dextrose 50% In Water (25gm) 50 Ml Syringe) 50 ml IV Q30MIN PRN; Protocol PRN Reason: Hypoglycemia Fentanyl (Fentanyl 100 Mcg/2 Ml Inj) 50 mcg IV Q10MIN PRN PRN Reason: ANALGESIA Folic Acid (Folic Acid 1 Mg Tab) 1 mg PO QDAY LILIBETH Last Admin: 10/11/21 09:32 Dose: Not Given Documented by: Dextrose/Sodium Chloride (D5ns) 1,000 mls @ 125 mls/hr IV DIRECT LILIBETH Last Admin: 10/11/21 02:35 Dose: 125 mls/hr Documented by: NORepinephrine/NS 8 MG-250 ML (Norepinephrine/Ns 8 Mg-250 Ml (Double Conc)) 8 mg in 250 mls @ 3.75 mls/hr IV TITRATE LILIBETH; Protocol Last Titration: 10/11/21 06:01 Dose: 30 mcg/min, 56.25 mls/hr Documented by: Epinephrine 8 mg/ Sodium (Chloride) 250 mls @ 3.75 mls/hr IV TITR LILIBETH; Protocol Last Titration: 10/11/21 10:23 Dose: 7 mcg/min, 13.125 mls/hr Documented by: Vasopressin 20 unit/ Sodium (Chloride) 101 mls @ 9.09 mls/hr IV TITR LILIBETH; Protocol Last Admin: 10/11/21 06:42 Dose: 0.03 units/min, 9.09 mls/hr Documented by: Pantoprazole Sodium 80 mg/ (Sodium Chloride) 100 mls @ 10 mls/hr IV DIRECT LILIBETH Last Admin: 10/11/21 07:28 Dose: 8 mg/hr, 10 mls/hr Documented by: Ceftriaxone Sodium (Rocephin/Ns 2 Gm/100 Ml) 2 gm in 100 mls @ 200 mls/hr IV Q24H LILIBETH; Protocol Last Admin: 10/11/21 08:13 Dose: 200 mls/hr Documented by: Octreotide Acetate 500 mcg/ (Sodium Chloride) 101 mls @ 5.05 mls/hr IV TITR LILIBETH; Protocol Last Admin: 10/11/21 07:27 Dose: 25 mcg/hr, 5.05 mls/hr Documented by: Levetiracetam 500 mg/ Dextrose 105 mls @ 400 mls/hr IV Q12HR LILIBETH Last Admin: 10/11/21 11:23 Dose: 400 mls/hr Documented by: Sodium Chloride (Nacl 0.9% 500 Ml) 500 mls @ 1 mls/hr IV DIRECT PRN PRN Reason: ARTERIAL LINE FLUSH Sodium Bicarbonate 150 meq/ (Dextrose) 1,150 mls @ 125 mls/hr IV DIRECT LILIBETH Calcium Gluconate 2,000 mg/ (Sodium Chloride) 120 mls @ 232.884 mls/hr IV ONC E@1200 ONE Stop: 10/11/21 12:30 Desmopressin Acetate 20 mcg/ (Sodium Chloride) 55 mls @ 100 mls/hr IV ONCE ONE Stop: 10/11/21 11:32 Insulin Human Lispro (Insulin Lispro 100 Unit/Ml) 0 unit SUB-Q Q6HR LILIBETH; Protocol Insulin Human Regular (Insulin Regular, Human 100 Units/1 Ml) 10 units IV ONCE@1200 NR Stop: 10/11/21 13:00 Lorazepam (Lorazepam 2 Mg/Ml Vial) 2 mg IV Q4H PRN PRN Reason: seizure Last Admin: 10/11/21 09:00 Dose: 2 mg Documented by: Multivitamins (Multivitamins ,Therapeutic Tab) 1 each PO DAILY [facility] Last Admin: 10/11/21 09:32 Dose: Not Given Documented by: Ondansetron HCl (Ondansetron 4 Mg/2 Ml Inj) 4 mg IV Q8H PRN PRN Reason: Nausea And Vomiting Sodium Chloride (Sodium Chloride 0.9% 10 Ml Flush Syringe) 10 ml IV BID [facility] Last Admin: 10/11/21 09:32 Dose: Not Given Documented by: Sodium Chloride (Sodium Chloride 0.9% 10 Ml Flush Syringe) 10 ml IV PRN PRN PRN Reason: LINE FLUSH Review of Systems ROS unobtainable: due to endotracheal tube, due to mental status Physical Examination Vital signs: Vital Signs Temp Pulse Resp BP Pulse Ox 98.6 F 106 H 14 107/72 95 10/10/21 23:00 10/10/21 23:00 10/10/21 23:00 10/10/21 23:00 10/10/21 23:00 General appearance: comatose ENT: other (orally intubated) Effort: very labored Ascultation: Bilateral: clear Percussion: Bilateral: not dull Cardiovascular: other (tachycardic) Gastrointestinal: other (distended) Results - Laboratory Findings CBC and BMP: 10/11/21 09:59 10/11/21 09:59 ABG ABG pH 7.038 pH Units (7.350-7.450) L* 10/11/21 03:00 ABG pCO2 18.4 mm Hg 10/11/21 03:00 ABG pO2 308.1 mm Hg (80.0-90.0) H 10/11/21 03:00 ABG O2 Saturation 99.4 % (95.0-99.0) H 10/11/21 03:00 PT/INR, D-dimer PT 38.8 Sec. (12.2-14.9) H 10/11/21 09:59 INR 3.62 (0.87-1.13) H 10/11/21 09:59 D-Dimer > 44293 ng/mlDDU (0-234) H 10/11/21 09:59 Abnormal lab findings: Abnormal Labs 10/10/21 10/10/21 10/10/21 23:02 23:33 23:33 RBC 1.25 L Hgb 5.0 L* Hct 16.2 L* MCV 129 H MCH 40 H MCHC 31 L RDW 22.4 H Plt Count 36 L Lymph % (Auto) 9.2 L [place] % (Auto) 7.4 H Lymph # (Auto) 0.8 L Seg Neutrophils % 82.9 H Seg Neuts % (Manual) Lymphocytes % (Manual) Nucleated RBC % Lymphocytes # (Manual) PT 30.9 H INR 2.70 H APTT 62.2 H* Thrombin Time 34.6 H Fibrinogen D-Dimer > 83188 H ABG pH ABG pO2 ABG HCO3 ABG O2 Saturation ABG Base Excess ABG Hemoglobin Sodium Potassium Chloride Carbon Dioxide BUN Creatinine Glucose POC Glucose 123 H Calcium Phosphorus Total Bilirubin AST ALT Alkaline Phosphatase Ammonia Total Protein Albumin Ur Specific [place] Urine WBC (Auto) Crossmatch 10/10/21 10/10/21 10/11/21 23:33 23:33 00:10 RBC Hgb Hct MCV MCH MCHC RDW Plt Count Lymph % (Auto) [place] % (Auto) Lymph # (Auto) Seg Neutrophils % Seg Neuts % (Manual) Lymphocytes % (Manual) Nucleated RBC % Lymphocytes # (Manual) PT INR APTT Thrombin Time Fibrinogen D-Dimer ABG pH ABG pO2 ABG HCO3 ABG O2 Saturation ABG Base Excess ABG Hemoglobin Sodium 131 L Potassium Chloride 97.5 L Carbon Dioxide 10 L BUN 33 H Creatinine 1.8 H Glucose 136 H POC Glucose Calcium 7.6 L Phosphorus Total Bilirubin 2.20 H AST 65 H ALT Alkaline Phosphatase 142 H Ammonia 67.0 H Total Protein 5.9 L Albumin 1.6 L Ur Specific [place] Urine WBC (Auto) Crossmatch See Detail 10/11/21 10/11/21 10/11/21 01:00 03:00 06:05 RBC 1.09 L Hgb 3.6 L* Hct 12.7 L* MCV 116 H MCH 33 H MCHC 29 L RDW 22.7 H Plt Count 14 L* Lymph % (Auto) [place] % (Auto) Lymph # (Auto) Seg Neutrophils % Seg Neuts % (Manual) 79.0 H Lymphocytes % (Manual) 8.0 L Nucleated RBC % 4.0 H Lymphocytes # (Manual) 0.5 L PT INR APTT Thrombin Time Fibrinogen D-Dimer ABG pH 7.038 L* ABG pO2 308.1 H ABG HCO3 4.8 L ABG O2 Saturation 99.4 H ABG Base Excess -23.7 L ABG Hemoglobin 6.2 L Sodium Potassium Chloride Carbon Dioxide BUN Creatinine Glucose POC Glucose Calcium Phosphorus Total Bilirubin AST ALT Alkaline Phosphatase Ammonia Total Protein Albumin Ur Specific [place] 1.045 H Urine WBC (Auto) 11.0 H Crossmatch 10/11/21 10/11/21 10/11/21 06:05 09:59 09:59 RBC 2.46 L Hgb 7.3 L D Hct 25.7 L D MCV 105 H MCH MCHC 29 L RDW 17.1 H Plt Count 14 L* Lymph % (Auto) [place] % (Auto) Lymph # (Auto) Seg Neutrophils % Seg Neuts % (Manual) Lymphocytes % (Manual) Nucleated RBC % Lymphocytes # (Manual) PT INR APTT Thrombin Time Fibrinogen D-Dimer ABG pH ABG pO2 ABG HCO3 ABG O2 Saturation ABG Base Excess ABG Hemoglobin Sodium Potassium Chloride 109.0 H Carbon Dioxide 5 L* BUN 27 H Creatinine 1.9 H Glucose 605 H* POC Glucose Calcium 5.7 L* D Phosphorus 12.70 H Total Bilirubin AST ALT Alkaline Phosphatase Ammonia Total Protein Albumin Ur Specific [place] Urine WBC (Auto) Crossmatch 10/11/21 10/11/21 10/11/21 09:59 09:59 10:54 RBC Hgb Hct MCV MCH MCHC RDW Plt Count Lymph % (Auto) [place] % (Auto) Lymph # (Auto) Seg Neutrophils % Seg Neuts % (Manual) Lymphocytes % (Manual) Nucleated RBC % Lymphocytes # (Manual) PT 38.8 H INR 3.62 H APTT > 240.0 H* Thrombin Time Fibrinogen 64 L* D-Dimer > 95224 H ABG pH ABG pO2 ABG HCO3 ABG O2 Saturation ABG Base Excess ABG Hemoglobin Sodium Potassium 7.1 H* D Chloride Carbon Dioxide 4 L* BUN 28 H Creatinine 2.6 H Glucose 226 H POC Glucose 174 H Calcium 6.2 L Phosphorus Total Bilirubin AST 271 H ALT 79 H Alkaline Phosphatase Ammonia Total Protein 3.7 L D Albumin 1.5 L Ur Specific [place] Urine WBC (Auto) Crossmatch - Diagnostic Findings Chest x-ray: image reviewed Assessment and Plan 66 y/o m with multisystem organ failure 1. Very very poor prognosis. Has coded 3-4x now. Most likely will pass today. Will continue all supportive measures. made aware of grave state. CCT 31minutes
[2021-10-11] MEDS ORDERED: INSULIN REGULAR, HUMAN 100 UNITS/1 ML IV NR (12:00)
[2021-10-11] MEDS ORDERED: CALCIUM GLUCONATE 2,000 MG in SODIUM CHLORIDE 0.9% 100 ML IV ONE (12:00)
--- NOTE | 2021-10-11 12:01 | Event Note ---
Date: 10/11/21 Davy raphael called at 1051 for cardiac arrest. Patient found to be bradycardiac by RN and soon lost his pulse and ACLS was initiated at 1051. Dr. Mcclure at bedside to oversee ACLS and soon replaced by Dr. Petersen. The patient received mask/bag ventilation by RT during event. He was given 3 mg of epinephrine, 1 amp bicarb, Calcium chloride x1, and was shocked 2 x with 200/250 Joules. He gained ROSC at 1104 but was noted to be in junctional rhythm. He was given atropine. I informed his Bernadette Lewis [phone] of current event. I spoke to her about last nights events and updated her right before this witnessed cardiac arrest took place. Patient remains a full code. We will give DDAVP. And continue supportive care. CCT: 30 mins (including time spent updating family re last nights events and this morning)
[2021-10-11 12:08] VITALS: BP 87/51
[2021-10-11 12:30] LABS: Chol/HDL Ratio TNR %; HDL Cholesterol TNR mg/dL (40-59); LDL Cholesterol,Direct TNR mg/dL (50-130)
[2021-10-11] MEDS ORDERED: DESMOPRESSIN ACETATE 20 MCG in SODIUM CHLORIDE 0.9% 50 ML IV ONE (12:30)
--- NOTE | 2021-10-11 13:10 | Event Note ---
Date: 10/11/21 Went to bedside to evaluate patient. had no pulse, not able to obtain blood pressure. had coded less than an hour prior to this and maxed on all pressors. Time called at 12:02 pm. notified.
--- NOTE | 2021-10-11 13:13 | Death Summary ---
Summary - Providers Date of service: 10/11/21 Consults: 10/11/21 Consult to Cardiac Rehabilitation [CONS] Routine Reason For Exam: Phase I Consult to Physician [CONS] Routine Comment: Consulting Provider: POLO MARTINEZ Physician Instructions: Reason For Exam: cva Consult to Physician [CONS] Routine Comment: Consulting Provider: MIGUEL TRAN Physician Instructions: Reason For Exam: Cardiac arrest 10/11/21 01:50 Consult to Physician [CONS] Routine Comment: Consulting Provider: MAGNO WOMACK Physician Instructions: Reason For Exam: Cardiac arrest 10/11/21 01:51 Occupational Therapy Evaluate and Treat [CONS] Routine Comment: Reason For Exam: Neuro deficits Physical Therapy Evaluation and Treat [CONS] Routine Comment: Reason For Exam: Neuro deficits 10/11/21 01:57 Consult to Physician [CONS] Routine Comment: Consulting Provider: BRIAN TOVAR Physician Instructions: Reason For Exam: gib 10/11/21 06:56 Consult to Dietitian/Nutrition [CONS] Routine Physician Instructions: Reason For Exam: Reason for Consult: Diet education 10/11/21 08:50 Consult to Physician [CONS] Routine Comment: Consulting Provider: SUSAN GUZMÁN Physician Instructions: Reason For Exam: [place], met acidosis Attending: WOJCIECH RODRIGUEZ MD - summary Date of admission: 10/11/21 01:51 Date of : 10/11/21 Reason for admission: Cardiac arrest x3, Multisystem organ failure, Seizure, DIC, LYNDSAY Significant findings: This is a 66-year-old male with with EtOH abuse, alcoholic cirrhosis, hepatic encephalopathy, chronic liver disease, hypertension, GERD presented to emergency department on 10/11 with complaints of altered mental status, dizziness, mild shortness of breath. In the emergency department patient had a seizure which was aborted with Ativan but he became hypotensive and cardiac arrest followed. ACLS was initiated and the patient was intubated. ROSC was achieved. Work-up in the emergency department revealed H/H of 5.1/16.2, supratherapeutic INR of 2.7, CT head showed no no acute intracranial abnormality. Patient underwent a CTA head and neck which showed no large vessel occlusion and chronic scarring or atelectasis of right pulmonary apex noted on CTA neck. Patient was initially admitted to the hospitalist service with possible CVA, symptomatic anemia, coagulopathy, transaminitis s/p cardiac arrest with acute hypoxic respiratory failure. Cardiology, CCM, GI, neurology were consulted. This morning nephrology was also consulted due to severe metabolic acidosis with evidence of slight [place]. Patient remained on Levophed, vasopressin and epinephrine. Patient was started on IV Keppra. Patient was given a total of 6 L of normal saline in the emergency department. He was also given vitamin K overnight. He was also started on Protonix and octreotide drip. Patient received 6 units PRBC and 4 units of FFP. Once patient was transferred to the ICU patient had another cardiac arrest and was shocked 3 times with ROSC with possible junctional rhythm. Vasopressin was ordered. Patient also had hyperkalemia which was medically treated. Patient's lab work was consistent with DIC. Unfortunately patient had another cardiac arrest and . Time of called by Dr. Womack at 1202. I kept his informed throughout the day of events and informed her of his passing. Family to be in contact with RN with home arrangements. S/p cardiac arrest x3 Multi system organ failure Disseminated intravascular coagulopathy Symptomatic anemia Seizure GI bleed Thrombocytopenia Supratherapeutic INR Acute kidney injury Severe metabolic acidosis Elevated D-dimer Hyperkalemia Hyperphosphatemia Shock liver h/o EtOH abuse, chronic liver disease, hepatic encephalopathy, HTN, GERD
--- NOTE | 2021-10-11 14:08 | Consultation ---
<DORI PORTILLO - Last Filed: 10/11/21 14:05> History of Present Illness Consult date: 10/11/21 Requesting physician: EBER DYER Consult reason: cardiac arrest History of present illness: Patient is a 66-year-old male with a past medical history of of alcoholic cirrhosis, hepatic encephalopathy, cocaine abuse, HFrEF, dilated cardiomyopathy, hypertension who was brought to the ED due to altered mental status. History taken from chart due to patient being intubated at time of interview. Per documentation patient was complaining he thought his speech was off, had dizziness, and shortness of breath x1 day. Per documentation patient had a seizure that lasted approximately 5 minutes was given Ativan, blood pressure dropped and became unresponsive with no pulse. ACLS protocol was initiated with patient received 1 of epi and bicarb patient regained ROSC. Patient previously seen by our practice and 01/2021. Cardiology is consulted for status post cardiac arrest Past History Past Medical History: hypertension, other (Alcoholic cirrhosis, hepatic encephalopathy, cocaine abuse) Past Surgical History: Other (unable to obtain) Social history: other (unable to obtain) Family history: other (unable to obtain) Medications and Allergies Allergies Allergy/AdvReac Type Severity Reaction Status Date / Time lisinopril Allergy Severe EVERYTHING Verified 10/10/21 22:59 [facility] Medications Medication Instructions Recorded Confirmed Last Taken Type Aspirin EC [Halfprin EC] 81 mg PO QDAY #30 tablet 04/01/19 05/22/21 05/21/21 09:00 Rx Multivitamin [Multiple Vitamins] 1 each PO DAILY #30 tablet 04/01/19 05/22/21 05/21/21 09:00 Rx Spironolactone [Aldactone] 25 mg PO QDAY #30 tablet 04/01/19 05/22/21 05/21/21 09:00 Rx Folic Acid [Folvite] 1 mg PO QDAY #30 tablet 05/24/21 Unknown Rx Furosemide [Lasix TAB] 20 mg PO DAILY@0600 #30 tablet 05/24/21 Unknown Rx Losartan [Cozaar] 50 mg PO QDAY #30 tablet 05/24/21 Unknown Rx Metoprolol Xl [Metoprolol 50 mg PO QDAY #30 tablet 05/24/21 Unknown Rx SUCCINATE ER TAB] NIFEdipine XL [Procardia Xl] 60 mg PO QDAY #30 tablet 05/24/21 Unknown Rx Pantoprazole [Protonix TAB] 40 mg PO QDAY #30 tablet 05/24/21 Unknown Rx Spironolactone [Aldactone] 50 mg PO QDAY #30 tablet 05/24/21 Unknown Rx Active Meds: Active Medications Acetaminophen (Acetaminophen 325 Mg Tab) 650 mg PO Q4H PRN PRN Reason: Pain MILD(1-3)/Fever >100.5/COLLINS Dextrose (Dextrose 50% In Water (25gm) 50 Ml Syringe) 50 ml IV Q30MIN PRN; Protocol PRN Reason: Hypoglycemia Fentanyl (Fentanyl 100 Mcg/2 Ml Inj) 50 mcg IV Q10MIN PRN PRN Reason: ANALGESIA Folic Acid (Folic Acid 1 Mg Tab) 1 mg PO QDAY LILIBETH Last Admin: 10/11/21 09:32 Dose: Not Given Documented by: Dextrose/Sodium Chloride (D5ns) 1,000 mls @ 125 mls/hr IV DIRECT LILIBETH Last Admin: 10/11/21 02:35 Dose: 125 mls/hr Documented by: NORepinephrine/NS 8 MG-250 ML (Norepinephrine/Ns 8 Mg-250 Ml (Double Conc)) 8 mg in 250 mls @ 3.75 mls/hr IV TITRATE LILIBETH; Protocol Last Titration: 10/11/21 06:01 Dose: 30 mcg/min, 56.25 mls/hr Documented by: Epinephrine 8 mg/ Sodium (Chloride) 250 mls @ 3.75 mls/hr IV TITR LILIBETH; Protocol Last Titration: 10/11/21 10:23 Dose: 7 mcg/min, 13.125 mls/hr Documented by: Vasopressin 20 unit/ Sodium (Chloride) 101 mls @ 9.09 mls/hr IV TITR LILIBETH; Protocol Last Admin: 10/11/21 06:42 Dose: 0.03 units/min, 9.09 mls/hr Documented by: Pantoprazole Sodium 80 mg/ (Sodium Chloride) 100 mls @ 10 mls/hr IV DIRECT LILIBETH Last Admin: 10/11/21 07:28 Dose: 8 mg/hr, 10 mls/hr Documented by: Ceftriaxone Sodium (Rocephin/Ns 2 Gm/100 Ml) 2 gm in 100 mls @ 200 mls/hr IV Q24H LILIBETH; Protocol Last Admin: 10/11/21 08:13 Dose: 200 mls/hr Documented by: Octreotide Acetate 500 mcg/ (Sodium Chloride) 101 mls @ 5.05 mls/hr IV TITR [facility]; Protocol Last Admin: 10/11/21 07:27 Dose: 25 mcg/hr, 5.05 mls/hr Documented by: Levetiracetam 500 mg/ Dextrose 105 mls @ 400 mls/hr IV Q12HR [facility] Last Admin: 10/11/21 11:23 Dose: 400 mls/hr Documented by: Sodium Chloride (Nacl 0.9% 500 Ml) 500 mls @ 1 mls/hr IV DIRECT PRN PRN Reason: ARTERIAL LINE FLUSH Sodium Bicarbonate 150 meq/ (Dextrose) 1,150 mls @ 125 mls/hr IV DIRECT LILIBETH Insulin Human Lispro (Insulin Lispro 100 Unit/Ml) 0 unit SUB-Q Q6HR [facility]; Protocol Lorazepam (Lorazepam 2 Mg/Ml Vial) 2 mg IV Q4H PRN PRN Reason: seizure Last Admin: 10/11/21 09:00 Dose: 2 mg Documented by: Multivitamins (Multivitamins ,Therapeutic Tab) 1 each PO DAILY [facility] Last Admin: 10/11/21 09:32 Dose: Not Given Documented by: Ondansetron HCl (Ondansetron 4 Mg/2 Ml Inj) 4 mg IV Q8H PRN PRN Reason: Nausea And Vomiting Sodium Chloride (Sodium Chloride 0.9% 10 Ml Flush Syringe) 10 ml IV BID [facility] Last Admin: 10/11/21 09:32 Dose: Not Given Documented by: Sodium Chloride (Sodium Chloride 0.9% 10 Ml Flush Syringe) 10 ml IV PRN PRN PRN Reason: LINE FLUSH Review of Systems ROS unobtainable: due to endotracheal tube, due to mental status Physical Examination Vital Signs Temp Pulse Resp BP Pulse Ox 98.6 F 106 H 14 107/72 95 10/10/21 23:00 10/10/21 23:00 10/10/21 23:00 10/10/21 23:00 10/10/21 23:00 General appearance: other (unrepsonsive/intubated) Neck: Positive: trachea midline Cardiac: Positive: Reg Rate and Rhythm Lungs: Positive: Ventilated Respirations Neuro: Positive: Other (unrepsonsive) Abdomen: Positive: Soft Skin: Negative: Rash, Suspicious Lesions, Ulceration Extremities: Present: upper extr. pulses Results 10/11/21 09:59 10/11/21 09:59 Cardiac Enzymes 10/10/21 10/10/21 10/11/21 Range/Units 23:33 23:33 09:59 AST 65 H 271 H (5-40) units/L CK-MB (CK-2) 2.7 (0.0-4.0) ng/mL Coagulation 10/10/21 10/11/21 Range/Units 23:33 09:59 PT 30.9 H 38.8 H (12.2-14.9) Sec. INR 2.70 H 3.62 H (0.87-1.13) APTT 62.2 H* > 240.0 H* (24.2-36.6) Sec. Lipids 10/11/21 Range/Units 09:59 Triglycerides TNR Cholesterol TNR HDL Cholesterol TNR Cholesterol/HDL Ratio TNR CBC 10/10/21 10/11/21 10/11/21 Range/Units 23:33 06:05 09:59 WBC 8.5 6.2 6.9 (4.5-11.0) K/mm3 RBC 1.25 L 1.09 L 2.46 L (3.65-5.03) M/mm3 Hgb 5.0 L* 3.6 L* 7.3 L D (11.8-15.2) gm/dl Hct 16.2 L* 12.7 L* 25.7 L D (35.5-45.6) % Plt Count 36 L 14 L* 14 L* (140-440) K/mm3 Lymph # (Auto) 0.8 L (1.2-5.4) K/mm3 Stevens # (Auto) 0.6 (0.0-0.8) K/mm3 Eos # (Auto) 0.0 (0.0-0.4) K/mm3 Baso # (Auto) 0.0 (0.0-0.1) K/mm3 Comprehensive Metabolic Panel 10/10/21 10/11/21 10/11/21 Range/Units 23:33 06:05 09:59 Sodium 131 L 141 D 140 (137-145) mmol/L Potassium 3.7 5.0 D 7.1 H* D (3.6-5.0) mmol/L Chloride 97.5 L 109.0 H 106.4 (98-107) mmol/L Carbon Dioxide 10 L 5 L* 4 L* (22-30) mmol/L BUN 33 H 27 H 28 H (9-20) mg/dL Creatinine 1.8 H 1.9 H 2.6 H (0.8-1.3) mg/dL Glucose 136 H 605 H* 226 H (75-100) mg/dL Calcium 7.6 L 5.7 L* D 6.2 L (8.4-10.2) mg/dL AST 65 H 271 H (5-40) units/L ALT 22 79 H (7-56) units/L Alkaline Phosphatase 142 H 76 (35-129) units/L Total Protein 5.9 L 3.7 L D (6.3-8.2) g/dL Albumin 1.6 L 1.5 L (3.9-5) g/dL - Imaging and Cardiology Echo: report reviewed Cardiac cath: report reviewed EKG: pending EKG interpretations - Telemetry EKG Rhythm: Sinus Rhythm Assessment and Plan Patient is a 66-year-old male with a past medical history of of alcoholic cirrhosis, hepatic encephalopathy, cocaine abuse, HFrEF, dilated cardiomyopathy, hypertension who was brought to the ED due to altered mental status Multisystem organ failure s/p Cardiac arrest x3 JIA Elevated D-dimer Hyperkalemia NICM Severe anemia Thrombocytopenia Cirrhosis HTN Echo 01/31/2021-EF 50 to 55%, mild diastolic dysfunction impaired relaxation pattern no pericardial effusion. Lexiscan MPI (03/2019) negative. Echo (03/2019) : EF 35-40%. Left Ventricle is mildly dilated with mild LVH. LA mildly dilated. Mild to moderate MR. Mild TR. Plan: Echo was ordered. However echo canceled due to patient's expiring Patient seen in conjunction with Dr. Rodriguez 30 minutes of critical care time spent in coordination of patient <CLOTILDE RODRIGUEZ - Last Filed: 10/14/21 09:52> Physical Examination Vital Signs Temp Pulse Resp BP Pulse Ox 98.6 F 106 H 14 107/72 95 10/10/21 23:00 10/10/21 23:00 10/10/21 23:00 10/10/21 23:00 10/10/21 23:00 Results 10/11/21 09:59 11/19/21 09:59 Assessment and Plan We spent 30 min of critical care time as pt was coding.
== END 2021-10-11 12:02 | DRG 208 ==
LOC: ED 22:47 → CC1 10-11 01:51
PROVIDERS: ADMIT Hospitalist; ATTEND Internal Medicine
PROC: 5A1935Z Respiratory Ventilation, Less than 24 Consecutive Hours (ICD-10-PCS; principal; 2021-10-11)
PROC: 0BH17EZ Insertion of Endotracheal Airway into Trachea, Via Natural or Artificial Opening (ICD-10-PCS; 2021-10-11)
PROC: 30233K1 Transfusion of Nonautologous Frozen Plasma into Peripheral Vein, Percutaneous Approach (ICD-10-PCS; 2021-10-11)
PROC: 30233N1 Transfusion of Nonautologous Red Blood Cells into Peripheral Vein, Percutaneous Approach (ICD-10-PCS; 2021-10-11)
PROC: 30233R1 Transfusion of Nonautologous Platelets into Peripheral Vein, Percutaneous Approach (ICD-10-PCS; 2021-10-11)
PROC: 4A033R1 Measurement of Arterial Saturation, Peripheral, Percutaneous Approach (ICD-10-PCS; 2021-10-11)
PROC: 06HY33Z Insertion of Infusion Device into Lower Vein, Percutaneous Approach (ICD-10-PCS; 2021-10-11)
PROC: 5A12012 Performance of Cardiac Output, Single, Manual (ICD-10-PCS; 2021-10-11)
DX: J96.01 Acute respiratory failure with hypoxia (principal); N17.0 Acute kidney failure with tubular necrosis; K92.2 Gastrointestinal hemorrhage, unspecified; D68.9 Coagulation defect, unspecified; E87.2 Acidosis; I50.20 Unspecified systolic (congestive) heart failure; I42.0 Dilated cardiomyopathy; I46.9 Cardiac arrest, cause unspecified; K70.30 Alcoholic cirrhosis of liver without ascites; F10.20 Alcohol dependence, uncomplicated; Z88.8 Allergy status to other drugs, medicaments and biological substances; Z20.822 Contact with and (suspected) exposure to COVID-19; E78.00 Pure hypercholesterolemia, unspecified; F17.200 Nicotine dependence, unspecified, uncomplicated; K21.9 Gastro-esophageal reflux disease without esophagitis; Z79.82 Long term (current) use of aspirin; Z79.899 Other long term (current) drug therapy; D69.6 Thrombocytopenia, unspecified; D64.9 Anemia, unspecified; K72.90 Hepatic failure, unspecified without coma; I11.0 Hypertensive heart disease with heart failure
CPT/HCPCS: 36415; 70450; 70496; 70498; 71045; 80048; 80053; 80061; 80320; 81001; 82140; 82550; 82553; 82803; 82962; 83735; 84100; 84484; 85007; 85014; 85018; 85025; 85027; 85379; 85384; 85610; 85670; 85730; 86850; 86900; 86901; 86920; 87070; 87086; 87205; 93005; 94002; 94003; 95819; G0378; J2354; J2501; J3490; J7060; Q0162; C9113; G0480; J0171; J0461; J0696; J1953; J2060; J2250; J2704; J3010; J3430; J7030; J7040; J7042; J7050; P9016; P9017; Q9967; U0003